=== PATIENT | male | born 1970 | race Caucasian/White ===

== ENCOUNTER 2016-04-28 21:33 | Inpatient (IN) | payer OTHER ==
[~2016-04-28] VITALS: Ht 175.3 cm; Wt 62.7 kg
[~2016-04-28 21:33] MED LIST: ALBUTEROL SULF8.5 GM IH; ANALGESIC325 M1 PO; ASPIR-LOW81 MG PO; ASPIR-TRIN325 M1 PO; ASPIRIN EC325 MG PO; ASPIRIN325 MG PO; ATORVASTATIN CA40 MG PO; ATORVASTATIN CA80 MG PO; AUGMENTIN; BACTRIM,SEPT1 TABLET PO; CEFTIN250 MG PO; CIPRO500 MG PO; CLEOCIN300 MG PO; DESYREL 150 MG150 MG PO; DIAZEPAM10 MG PO; DIAZEPAM5 MG PO; EFFEXOR XR150 MG PO; EFFEXOR XR37.5 MG PO; EFFEXOR XR75 MG PO; EFFEXOR37.5 MG PO; EFFEXOR75 MG PO; Ecotrin PO; GLUCAGON1 MG IM; HUMALOG100 UNIT/1 SQ; HUMALOG100 UNITS/ PO; IMDUR30 MG PO; Imdur PO; LANTUS 10100 UNITS/ SC; LANTUS 3 M100 UNITS/ PO; LANTUS 3 M100 UNITS/ SC; LANTUS 3 M100 UNITS1 SC; LANTUS100 UNIT/1 SQ; LEVEMIR100 UNIT/2 SC; LEXAPRO10 MG PO; LIPITOR20 MG PO; LIPITOR40 MG PO; LIPITOR80 MG PO; LISINOPRIL5 MG PO; LITE COAT ASPI325 M1 PO; LYRICA100 MG PO; LYRICA150 MG PO; LYRICA75 MG PO; METOPROLOL PO; METOPROLOL SUCC25 MG PO; MIRALAX17 GM PO; NITRO-DUR1 EAC1 TD; NITROGLYCERIN0.4 MG SL; NITROSTAT,NITR0.4 M1 SL; NITROSTAT0.4 MG PO; NITROSTAT0.4 MG SL; NON-ASPIRIN EX500 M2 PO; NOVOLOG 10100 UNITS/ SC; NOVOLOG PE100 UNITS/ SC; NOVOLOG100 UNIT/3 SQ; NovoLOG, HumaLOG SC; OLANZAPINE10 MG PO; OMEPRAZOLE40 M1 PO; OXCARBAZEPINE300 MG PO; OXCARBAZEPINE600 MG PO; PAROXETINE HCL40 MG PO; PAXIL CR25 MG PO; PAXIL10 MG PO; PAXIL40 MG PO; PLAVIX75 MG PO; PRILOSEC20 MG PO; PRILOSEC40 MG PO; PRINIVIL5 MG PO; SIMVASTATIN80 M1 PO; TOPROL XL25 MG PO; TOPROL XL6.25 MG PO; TRAZODONE HCL150 MG PO; TRAZODONE HCL50 MG PO; TRILEPTAL300 MG PO; TRILEPTAL600 MG PO; TYLENOL EXTRA500 MG PO; TYLENOL WITH C1 EACH PO; Trileptal PO; VALIUM10 MG PO; VENLAFAXINE HC150 M1 PO; VENLAFAXINE HCL75 M3 PO; VENTOLIN HFA18 GM IH; ZESTRIL5 MG PO; ZOCOR80 MG PO; ZYPREXA10 MG PO; Zestril,Prinivil PO; Zocor PO; ZyPREXA PO; Zyvox PO; humalog; lantus
[2016-04-28 23:25] LABS: EOSINOPHIL (%) 0.2 % (0-5); HEMATOCRIT 39.8 % (38.0-50.0); IMMATURE GRANULOCYTE (%) 0.2 % (0.0-0.7); IMMATURE GRANULOCYTE COUNT 0.1 K/uL; LYMPHOCYTE COUNT 2.3 K/uL (1.0-2.8); MCH 30.3 PG (29.0-34.0); MCHC 34.7 G/DL (30.0-36.0); MCV 87.5 FL (86-99); MONOCYTE (%) 7.3 % (3-12); MONOCYTE COUNT 0.4 K/uL (0-0.8); NEUTROPHIL (%) 50.3 % (45-76); NEUTROPHIL COUNT 2.8 K/uL (1.8-6.4); PLATELET COUNT 456 K/uL (156-360); RBC DIS.WIDTH-CV 13.1 % (11.8-14.6); RED BLOOD COUNT 4.55 M/uL (4.00-5.50); WHITE BLOOD COUNT 5.6 K/uL (4.1-10.2)
[2016-04-28 23:32] LABS: CHLORIDE 101 mEq/L (99-109); POTASSIUM 4.4 mEq/L (3.7-5.4); SODIUM 135 mEq/L (136-147)
[2016-04-28 23:34] LABS: GLUCOSE 393 mg/dL (70-99)
[2016-04-28 23:35] LABS: ANION GAP 23 MEQ/L (2-14)
[2016-04-28 23:37] LABS: SERUM ETHYL ALCOHOL < 10 mg/dL
[2016-04-28 23:38] LABS: GFR ESTIMATE (CALCULATED) 59 mL/min/; UREA NITROGEN (BUN) 14 mg/dL (9-23)
[2016-04-29 00:24] LABS: BASE EXCESS -6.7 mEq/L (-3 to +3); BICARBONATE 17.3 mEq/L (22-26); CARBOXY HGB 1.4 % (0-5); COMMENTS - BLOOD GASES C+A+; FI02 21 %; METHEMOGLOBIN 0.9 % (0-1.5); PCO2 30 mm Hg (35-45); PO2 86 mm Hg (80-100); SITE LR; pH 7.37 (7.35-7.45)
[2016-04-29 01:12] LABS: CHLORIDE 103 mEq/L (99-109); SODIUM 134 mEq/L (136-147)
[2016-04-29 01:13] LABS: GLUCOSE 320 mg/dL (70-99)
[2016-04-29 01:15] LABS: ANION GAP 15 MEQ/L (2-14)
[2016-04-29 01:17] LABS: GFR ESTIMATE (CALCULATED) > 59 mL/min/
[2016-04-29 01:18] LABS: UREA NITROGEN (BUN) 12 mg/dL (9-23)
[2016-04-29 02:01] LABS: ADD MIUA? NO; BILIRUBIN NEGATIVE; BLOOD NEGATIVE; COLOR STRAW ((YELLOW)); GLUCOSE (STRIP) >=500; KETONES 80; LEUKOCYTES NEGATIVE; NITRITE NEGATIVE; PROTEIN (STRIP) NEGATIVE; SPECIFIC GRAVITY 1.029 (1.000-1.030); UROBILINOGEN 0.2 MG/DL (0.2-1.0)
[2016-04-29 02:10] LABS: ADD MEDTOX COMMENT Y; AMPHETAMINE NEGATIVE (500 ng/mL); BARBITURATES NEGATIVE (200 ng/mL); BENZODIAZEPINES PRESUMPTIVE POSITIVE (150 ng/mL); COCAINE NEGATIVE (150 ng/mL); INTERNAL CONTROLS VALID? YES; METHADONE NEGATIVE (200 ng/mL); METHAMPHETAMINE NEGATIVE (500 ng/mL); OPIATES (MORPHINE) NEGATIVE (100 ng/mL); OXYCODONE NEGATIVE (100 ng/mL); PHENCYCLIDINE NEGATIVE (25 ng/mL); PROPOXYPHENE NEGATIVE (300 ng/mL); THC CANNABINOIDS NEGATIVE (50 ng/mL); TRICYCLIC ANTIDEPRESSANTS NEGATIVE (300 ng/mL)
[2016-04-29 02:39] LABS: BENZODIAZEPINES, URINE SCREEN POSITIVE (200 ng/mL)
[2016-04-29 03:36] LABS: POINT-OF-CARE METER ID UU14100415
[2016-04-29 04:03] LABS: CHLORIDE 110 mEq/L (99-109); POTASSIUM 3.5 mEq/L (3.7-5.4); SODIUM 139 mEq/L (136-147)
[2016-04-29 04:06] LABS: ANION GAP 9 MEQ/L (2-14)
[2016-04-29 04:08] LABS: GFR ESTIMATE (CALCULATED) > 59 mL/min/
[2016-04-29 04:09] LABS: UREA NITROGEN (BUN) 10 mg/dL (9-23)
[2016-04-29 04:21] LABS: GLUCOSE 93 mg/dL (70-99)
[2016-04-29 05:53] VITALS: BP 119/66
[2016-04-29 07:48] LABS: Estimated Average Glucose 226 mg/dL (70-123); HEMOGLOBIN A1c (GLYCOHEMOGLOB) 9.5 % HGB (Below 5.7)
== END 2016-04-29 05:20 | disposition home or self-care (01) | DRG 638 ==
LOC: EME 21:33 → EDOF 04-29 03:08
PROVIDERS: Emergency Medicine; Surgery
DX: E13.10 Other specified diabetes mellitus with ketoacidosis without coma (principal); R45.851 Suicidal ideations; F31.9 Bipolar disorder, unspecified; J45.909 Unspecified asthma, uncomplicated; E78.5 Hyperlipidemia, unspecified; I10 Essential (primary) hypertension; F41.9 Anxiety disorder, unspecified; I25.10 Atherosclerotic heart disease of native coronary artery without angina pectoris; Z91.5 Personal history of self-harm; Z91.14 Patient's other noncompliance with medication regimen; Z95.5 Presence of coronary angioplasty implant and graft; Z79.4 Long term (current) use of insulin
CPT/HCPCS: 36600; 80048; 80048 91; 81003; 82010; 82803; 82948; 83036; 84100; 84999; 85025; 90839; 99281; 99285; G0480; J1815; J7030; J7050

== ENCOUNTER 2016-05-09 13:05 | Inpatient (IN) | payer OTHER ==
[2016-05-09] VITALS (17 sets, daily range): BP systolic 89–121; BP diastolic 47–64
[~2016-05-09] VITALS: Ht 172.7 cm; Wt 57.6 kg
[2016-05-09 13:15] LABS: CARBOXY HGB 1.3 % (0-5); COMMENTS - BLOOD GASES A+C+; DEVICE NC; METHEMOGLOBIN 1.4 % (0-1.5); O2 FLOW 4 L/MIN; PCO2 < 19 mm Hg (35-45); PO2 159 mm Hg (80-100); SITE LRA; TOTAL RESP RATE 14 resp/min; pH 6.92 (7.35-7.45)
[2016-05-09 14:00] LABS: CARBOXY HGB 1.4 % (0-5); METHEMOGLOBIN 1.3 % (0-1.5); PCO2 22 mm Hg (35-45)
[2016-05-09 14:01] LABS: COMMENTS - BLOOD GASES A+C+; DEVICE 980; FI02 50 %; MECHANICAL RATE 30 resp/min; MODE SIMV; PEEP 5 CM/H20; PO2 285 mm Hg (80-100); PRES. SUPPORT 5 CM/H2O; SITE LRA; TIDAL VOLUME 400 ML; TOTAL RESP RATE 30 resp/min; pH < 6.91 (7.35-7.45)
[2016-05-09 14:21] LABS: CHLORIDE 100 mEq/L (99-109); SODIUM 138 mEq/L (136-147)
[2016-05-09 14:24] LABS: ANION GAP 35 MEQ/L (2-14)
[2016-05-09 14:25] LABS: TOTAL BILIRUBIN 0.3 mg/dL (0.0-1.0)
[2016-05-09 14:27] LABS: ALKALINE PHOSPHATASE 164 IU/L (3-129); GFR ESTIMATE (CALCULATED) 25 mL/min/
[2016-05-09 14:37] LABS: CARBON DIOXIDE (BICARBONATE) < 5.0 mEq/L (20-31); GLUCOSE 1141 mg/dL (70-99); POTASSIUM 7.1 mEq/L (3.7-5.4)
[2016-05-09 14:52] LABS: SERUM ETHYL ALCOHOL < 10 mg/dL
[2016-05-09 14:53] LABS: UREA NITROGEN (BUN) 22 mg/dL (9-23)
[2016-05-09 14:55] LABS: SALICYLATE < 5.0 MG/DL (15-30)
[2016-05-09 14:57] LABS: MCH 30.2 PG (29.0-34.0); MCHC 32.7 G/DL (30.0-36.0); MEAN PLAT.VOLUME 9.8 uM^3 (9.0-12.4); PLATELET COUNT 347 K/uL (156-360); RBC DIS.WIDTH-SD 43.4 % (39-53); RED BLOOD COUNT 4.01 M/uL (4.00-5.50)
[2016-05-09 15:09] LABS: ADD MIUA? YES; BILIRUBIN NEGATIVE; BLOOD SMALL; COLOR STRAW ((YELLOW)); GLUCOSE (STRIP) >=500; KETONES 80; LEUKOCYTES NEGATIVE; NITRITE NEGATIVE; PROTEIN (STRIP) 30; SPECIFIC GRAVITY 1.023 (1.000-1.030); UROBILINOGEN 0.2 MG/DL (0.2-1.0)
[2016-05-09 15:20] LABS: BACTERIA 1+ /HPF; COCAINE NEGATIVE (150 ng/mL); EPITHELIAL CELLS NONE SEEN /HPF; HYALINE CASTS 0-5 /LPF; MUCUS TRACE /LPF; PHENCYCLIDINE NEGATIVE (25 ng/mL); RED BLOOD CELLS 0-5 /HPF (0-5); THC CANNABINOIDS NEGATIVE (50 ng/mL); WHITE BLOOD CELLS 0-5 /HPF (0-5)
[2016-05-09 15:21] LABS: ADD MEDTOX COMMENT Y; AMPHETAMINE NEGATIVE (500 ng/mL); BARBITURATES NEGATIVE (200 ng/mL); BENZODIAZEPINES PRESUMPTIVE POSITIVE (150 ng/mL); INTERNAL CONTROLS VALID? YES; METHADONE NEGATIVE (200 ng/mL); METHAMPHETAMINE NEGATIVE (500 ng/mL); OPIATES (MORPHINE) NEGATIVE (100 ng/mL); OXYCODONE NEGATIVE (100 ng/mL); PROPOXYPHENE NEGATIVE (300 ng/mL); TRICYCLIC ANTIDEPRESSANTS NEGATIVE (300 ng/mL)
[2016-05-09] MEDS ORDERED: OMEPRAZOLE40 M1 PO (15:26)
[2016-05-09] MEDS ORDERED: CYMBALTA30 MG PO (15:27)
[2016-05-09] MEDS ORDERED: LANTUS 10100 UNITS/ SC (15:29)
[2016-05-09] MEDS ORDERED: NOVOLOG 10100 UNITS/ SC (15:33)
[2016-05-09 15:46] LABS: BASOPHIL COUNT 0.1 K/uL (0-0.1); EOSINOPHIL (%) 0.3 % (0-5); EOSINOPHIL COUNT 0.1 K/uL (0-0.3); HEMATOLOGY COMMENT 1 SMEAR COMPATIBLE; IMMATURE GRANULOCYTE (%) 1.1 % (0.0-0.7); IMMATURE GRANULOCYTE COUNT 2.5 K/uL; LYMPHOCYTE COUNT 1.7 K/uL (1.0-2.8); MONOCYTE (%) 5.4 % (3-12); MONOCYTE COUNT 1.2 K/uL (0-0.8); NEUTROPHIL (%) 85.2 % (45-76); NEUTROPHIL COUNT 18.8 K/uL (1.8-6.4)
[2016-05-09 15:58] LABS: MCV 92.3 FL (86-99)
[2016-05-09 16:05] LABS: BENZODIAZEPINES, URINE SCREEN POSITIVE (200 ng/mL)
[2016-05-09 16:27] LABS: POTASSIUM 4.7 mEq/L (3.7-5.4)
[2016-05-09 16:30] LABS: ANION GAP 27 MEQ/L (2-14)
[2016-05-09 16:33] LABS: GFR ESTIMATE (CALCULATED) 29 mL/min/; UREA NITROGEN (BUN) 23 mg/dL (9-23)
[2016-05-09 16:39] LABS: GLUCOSE 759 mg/dL (70-99); SODIUM 145 mEq/L (136-147)
[2016-05-09 16:40] LABS: CHLORIDE 111 mEq/L (99-109)
[2016-05-09 17:22] LABS: BASE EXCESS -19.2 mEq/L (-3 to +3); BICARBONATE 8.2 mEq/L (22-26); CARBOXY HGB 1.2 % (0-5); COMMENTS - BLOOD GASES A+C+; DEVICE 980; FI02 50 %; MECHANICAL RATE 30 resp/min; METHEMOGLOBIN 1.3 % (0-1.5); MODE SIMV; PCO2 24 mm Hg (35-45); PEEP 5 CM/H20; PO2 277 mm Hg (80-100); PRES. SUPPORT 5 CM/H2O; SITE LRA; TIDAL VOLUME 400 ML; TOTAL RESP RATE 30 resp/min; pH 7.14 (7.35-7.45)
[2016-05-09 18:15] LABS: Estimated Average Glucose 220 mg/dL (70-123); HEMOGLOBIN A1c (GLYCOHEMOGLOB) 9.3 % HGB (Below 5.7)
[2016-05-09 19:42] LABS: POINT-OF-CARE METER ID UU13113803
[2016-05-09 19:56] LABS: METH RESISTANT S AUREUS PCR NEGATIVE (NEGATIVE)
[2016-05-09 20:09] LABS: PROBE CHECK PASS; SPECIMEN PROCESSING CONTROL PASS
[2016-05-09 20:14] LABS: POINT-OF-CARE METER ID UU13113803
[2016-05-09 20:21] LABS: BASE EXCESS -6.7 mEq/L (-3 to +3); BICARBONATE 16.7 mEq/L (22-26); CARBOXY HGB 1.1 % (0-5); COMMENTS - BLOOD GASES C+A+; DEVICE 840 VENT; FI02 35 %; METHEMOGLOBIN 1.9 % (0-1.5); MODE SPONT; PCO2 27 mm Hg (35-45); PO2 180 mm Hg (80-100); SITE RR
[2016-05-09 20:22] LABS: PEEP 5 CM/H20; PRES. SUPPORT 12 CM/H2O; TOTAL RESP RATE 14 resp/min
[2016-05-09 20:35] LABS: POINT-OF-CARE METER ID UU13113803
[2016-05-09 20:59] LABS: ANION GAP 25 MEQ/L (2-14); CHLORIDE 113 MEQ/L (99-109); GFR ESTIMATE (CALCULATED) 47 mL/min/; GLUCOSE 293 mg/dL (70-99); POTASSIUM 3.7 MEQ/L (3.7-5.4); SAMPLE HEMOLYSIS CHECK 0; SAMPLE ICTERIC CHECK 0; SAMPLE LIPEMIA CHECK 0; SODIUM 152 MEQ/L (136-147); UREA NITROGEN (BUN) 19 mg/dL (9-23)
[2016-05-09 21:43] LABS: POINT-OF-CARE METER ID UU13113803
[2016-05-09 22:34] LABS: POINT-OF-CARE METER ID UU13113803
[2016-05-09 23:44] LABS: POINT-OF-CARE METER ID UU13113803
[2016-05-10] VITALS (19 sets, daily range): BP systolic 94–128; BP diastolic 59–83
[2016-05-10 00:41] LABS: CHLORIDE 120 mEq/L (99-109); POTASSIUM 3.4 mEq/L (3.7-5.4); SODIUM 156 mEq/L (136-147)
[2016-05-10 00:43] LABS: GLUCOSE 165 mg/dL (70-99)
[2016-05-10 00:44] LABS: ANION GAP 14 MEQ/L (2-14)
[2016-05-10 00:47] LABS: GFR ESTIMATE (CALCULATED) 47 mL/min/; UREA NITROGEN (BUN) 17 mg/dL (9-23)
[2016-05-10 00:47] LABS: POINT-OF-CARE METER ID UU13113803
[2016-05-10 01:33] LABS: POINT-OF-CARE METER ID UU13113748
[2016-05-10 03:50] LABS: POINT-OF-CARE METER ID UU13113748
[2016-05-10 04:45] LABS: EOSINOPHIL (%) 0 % (0-5); HEMATOCRIT 34.4 % (38.0-50.0); IMMATURE GRANULOCYTE (%) 0.3 % (0.0-0.7); IMMATURE GRANULOCYTE COUNT 0.3 K/uL; LYMPHOCYTE COUNT 1.4 K/uL (1.0-2.8); MCH 30.6 PG (29.0-34.0); MCHC 34.9 G/DL (30.0-36.0); MCV 87.8 FL (86-99); MEAN PLAT.VOLUME 9.4 uM^3 (9.0-12.4); MONOCYTE (%) 7.2 % (3-12); MONOCYTE COUNT 0.7 K/uL (0-0.8); NEUTROPHIL (%) 78.7 % (45-76); PLATELET COUNT 265 K/uL (156-360); RBC DIS.WIDTH-CV 13.1 % (11.8-14.6); RED BLOOD COUNT 3.92 M/uL (4.00-5.50); WHITE BLOOD COUNT 10.2 K/uL (4.1-10.2)
[2016-05-10 04:55] LABS: CHLORIDE 119 mEq/L (99-109); MAGNESIUM 1.7 mg/dL (1.3-2.7); POTASSIUM 3.6 mEq/L (3.7-5.4); SODIUM 155 mEq/L (136-147)
[2016-05-10 04:57] LABS: GLUCOSE 154 mg/dL (70-99)
[2016-05-10 04:58] LABS: ANION GAP 11 MEQ/L (2-14)
[2016-05-10 05:01] LABS: GFR ESTIMATE (CALCULATED) 50 mL/min/; UREA NITROGEN (BUN) 15 mg/dL (9-23)
[2016-05-10 05:38] LABS: POINT-OF-CARE METER ID UU13113748
[2016-05-10 09:11] LABS: ANION GAP 18 MEQ/L (2-14); CHLORIDE 114 MEQ/L (99-109); POTASSIUM 3.9 MEQ/L (3.7-5.4); SAMPLE HEMOLYSIS CHECK 0; SAMPLE ICTERIC CHECK 0; SAMPLE LIPEMIA CHECK 0; SODIUM 154 MEQ/L (136-147)
[2016-05-10 09:16] LABS: GFR ESTIMATE (CALCULATED) > 59 mL/min/; UREA NITROGEN (BUN) 12 mg/dL (9-23)
[2016-05-10 09:19] LABS: GLUCOSE 375 mg/dL (70-99)
[2016-05-10 09:24] LABS: POINT-OF-CARE METER ID UU14100415
[2016-05-10 09:24] LABS: POINT-OF-CARE METER ID UU13113803
[2016-05-10 09:24] LABS: POINT-OF-CARE METER ID UU14100415
[2016-05-10 10:08] LABS: BASE EXCESS -7.8 mEq/L (-3 to +3); BICARBONATE 16.2 mEq/L (22-26); CARBOXY HGB 1.1 % (0-5); COMMENTS - BLOOD GASES A+C+; DEVICE 840; FI02 35 %; METHEMOGLOBIN 1.6 % (0-1.5); MODE TC; PCO2 28 mm Hg (35-45); PO2 171 mm Hg (80-100); SITE LR; TOTAL RESP RATE 20 resp/min; pH 7.37 (7.35-7.45)
[2016-05-10 10:09] LABS: PEEP 5 CM/H20
[2016-05-10 10:44] LABS: POINT-OF-CARE METER ID UU13113748
[2016-05-10 11:38] LABS: POINT-OF-CARE METER ID UU13113748
[2016-05-10 12:10] LABS: POINT-OF-CARE METER ID UU13113748
[2016-05-10 12:37] LABS: ANION GAP 22 MEQ/L (2-14); CHLORIDE 115 MEQ/L (99-109); GFR ESTIMATE (CALCULATED) > 59 mL/min/; GLUCOSE 263 mg/dL (70-99); SAMPLE HEMOLYSIS CHECK 0; SAMPLE ICTERIC CHECK 0; SAMPLE LIPEMIA CHECK 0; SODIUM 154 MEQ/L (136-147); UREA NITROGEN (BUN) 11 mg/dL (9-23)
[2016-05-10 12:48] LABS: POINT-OF-CARE METER ID UU14162636
[2016-05-10 13:03] LABS: POTASSIUM 3.1 MEQ/L (3.7-5.4)
[2016-05-10 13:54] LABS: POINT-OF-CARE METER ID UU13113748
[2016-05-10 14:20] LABS: POINT-OF-CARE METER ID UU13113748
[2016-05-10 15:09] LABS: POINT-OF-CARE METER ID UU13113748
[2016-05-10 15:58] LABS: POINT-OF-CARE METER ID UU13113748
[2016-05-10 16:30] LABS: ANION GAP 17 MEQ/L (2-14); CHLORIDE 117 MEQ/L (99-109); POTASSIUM 3.5 MEQ/L (3.7-5.4); SAMPLE HEMOLYSIS CHECK 0; SAMPLE ICTERIC CHECK 0; SAMPLE LIPEMIA CHECK 0; SODIUM 156 MEQ/L (136-147)
[2016-05-10 16:35] LABS: GFR ESTIMATE (CALCULATED) > 59 mL/min/; GLUCOSE 164 mg/dL (70-99); UREA NITROGEN (BUN) 9 mg/dL (9-23)
[2016-05-10 17:00] LABS: POINT-OF-CARE METER ID UU13113748
[2016-05-10 18:00] LABS: POINT-OF-CARE METER ID UU13113748
[2016-05-10 19:01] LABS: POINT-OF-CARE METER ID UU13113748
[2016-05-10 19:32] LABS: ANION GAP 14 MEQ/L (2-14); CHLORIDE 116 MEQ/L (99-109); GFR ESTIMATE (CALCULATED) > 59 mL/min/; GLUCOSE 185 mg/dL (70-99); POTASSIUM 3.6 MEQ/L (3.7-5.4); SAMPLE HEMOLYSIS CHECK 0; SAMPLE ICTERIC CHECK 0; SAMPLE LIPEMIA CHECK 0; SODIUM 154 MEQ/L (136-147); UREA NITROGEN (BUN) 7 mg/dL (9-23)
[2016-05-10 19:42] LABS: MAGNESIUM 2.4 mg/dl (1.3-2.7)
[2016-05-10 20:04] LABS: POINT-OF-CARE METER ID UU13113748
[2016-05-10 21:15] LABS: POINT-OF-CARE METER ID UU13113748
[2016-05-10 22:06] LABS: POINT-OF-CARE METER ID UU13113748
[2016-05-10 23:22] LABS: POINT-OF-CARE METER ID UU13113748
[2016-05-11] VITALS (22 sets, daily range): BP systolic 102–126; BP diastolic 61–71
[2016-05-11 00:52] LABS: CHLORIDE 116 mEq/L (99-109); SODIUM 154 mEq/L (136-147)
[2016-05-11 00:53] LABS: GLUCOSE 173 mg/dL (70-99)
[2016-05-11 00:55] LABS: ANION GAP 12 MEQ/L (2-14)
[2016-05-11 00:57] LABS: GFR ESTIMATE (CALCULATED) > 59 mL/min/
[2016-05-11 00:58] LABS: UREA NITROGEN (BUN) 5 mg/dL (9-23)
[2016-05-11 01:07] LABS: POINT-OF-CARE METER ID UU13113748
[2016-05-11 03:07] LABS: POINT-OF-CARE METER ID UU13113731
[2016-05-11 04:04] LABS: EOSINOPHIL (%) 0.2 % (0-5); HEMATOCRIT 31.2 % (38.0-50.0); IMMATURE GRANULOCYTE (%) 0.1 % (0.0-0.7); IMMATURE GRANULOCYTE COUNT 0.1 K/uL; LYMPHOCYTE COUNT 2.2 K/uL (1.0-2.8); MCH 30.1 PG (29.0-34.0); MCHC 33.7 G/DL (30.0-36.0); MCV 89.4 FL (86-99); MEAN PLAT.VOLUME 9.4 uM^3 (9.0-12.4); MONOCYTE (%) 5.9 % (3-12); MONOCYTE COUNT 0.5 K/uL (0-0.8); NEUTROPHIL (%) 66.8 % (45-76); NEUTROPHIL COUNT 5.6 K/uL (1.8-6.4); PLATELET COUNT 189 K/uL (156-360); RBC DIS.WIDTH-CV 13.7 % (11.8-14.6); RBC DIS.WIDTH-SD 43.9 % (39-53); RED BLOOD COUNT 3.49 M/uL (4.00-5.50); WHITE BLOOD COUNT 8.3 K/uL (4.1-10.2)
[2016-05-11 04:12] LABS: CHLORIDE 118 mEq/L (99-109); SODIUM 154 mEq/L (136-147)
[2016-05-11 04:12] LABS: POINT-OF-CARE METER ID UU13113731
[2016-05-11 04:13] LABS: MAGNESIUM 1.9 mg/dL (1.3-2.7)
[2016-05-11 04:14] LABS: GLUCOSE 162 mg/dL (70-99)
[2016-05-11 04:15] LABS: ANION GAP 9 MEQ/L (2-14)
[2016-05-11 04:18] LABS: GFR ESTIMATE (CALCULATED) > 59 mL/min/
[2016-05-11 04:19] LABS: UREA NITROGEN (BUN) 4 mg/dL (9-23)
[2016-05-11 05:12] LABS: POINT-OF-CARE METER ID UU13113731
[2016-05-11 06:20] LABS: POINT-OF-CARE METER ID UU13113731
[2016-05-11 07:14] LABS: POINT-OF-CARE METER ID UU13113731
[2016-05-11 09:16] LABS: POINT-OF-CARE METER ID UU13113731
[2016-05-11 09:32] LABS: ANION GAP 9 MEQ/L (2-14); CHLORIDE 116 MEQ/L (99-109); GFR ESTIMATE (CALCULATED) > 59 mL/min/; GLUCOSE 206 mg/dL (70-99); POTASSIUM 3.2 MEQ/L (3.7-5.4); SAMPLE HEMOLYSIS CHECK 0; SAMPLE ICTERIC CHECK 0; SAMPLE LIPEMIA CHECK 0; SODIUM 152 MEQ/L (136-147); UREA NITROGEN (BUN) 3 mg/dL (9-23)
[2016-05-11 11:06] LABS: POINT-OF-CARE METER ID UU13113731
[2016-05-11 14:31] LABS: POINT-OF-CARE METER ID UU13113731
[2016-05-11 19:27] LABS: POINT-OF-CARE METER ID UU13113731
[2016-05-11 21:49] LABS: POINT-OF-CARE METER ID UU13113731
[2016-05-11 22:52] LABS: ANION GAP 9 MEQ/L (2-14); CHLORIDE 118 MEQ/L (99-109); GFR ESTIMATE (CALCULATED) > 59 mL/min/; POTASSIUM 3.5 MEQ/L (3.7-5.4); SAMPLE HEMOLYSIS CHECK 0; SAMPLE ICTERIC CHECK 0; SAMPLE LIPEMIA CHECK 0; SODIUM 152 MEQ/L (136-147); UREA NITROGEN (BUN) 4 mg/dL (9-23)
[2016-05-11 22:53] LABS: GLUCOSE 115 mg/dL (70-99)
[2016-05-12] VITALS (18 sets, daily range): BP systolic 101–140; BP diastolic 56–85
[2016-05-12 03:14] LABS: POINT-OF-CARE METER ID UU13113731
[2016-05-12 04:23] LABS: POINT-OF-CARE METER ID UU13113731
[2016-05-12 05:32] LABS: POINT-OF-CARE METER ID UU13113731
[2016-05-12 05:37] LABS: EOSINOPHIL (%) 0.9 % (0-5); EOSINOPHIL COUNT 0.1 K/uL (0-0.3); HEMATOCRIT 35.3 % (38.0-50.0); LYMPHOCYTE COUNT 2.2 K/uL (1.0-2.8); MCH 29.2 PG (29.0-34.0); MCHC 31.7 G/DL (30.0-36.0); MCV 91.9 FL (86-99); MEAN PLAT.VOLUME 9.9 uM^3 (9.0-12.4); MONOCYTE (%) 6.5 % (3-12); MONOCYTE COUNT 0.4 K/uL (0-0.8); NEUTROPHIL (%) 53.7 % (45-76); NEUTROPHIL COUNT 3.1 K/uL (1.8-6.4); PLATELET COUNT 150 K/uL (156-360); RBC DIS.WIDTH-CV 13.7 % (11.8-14.6); RBC DIS.WIDTH-SD 46.5 % (39-53); RED BLOOD COUNT 3.84 M/uL (4.00-5.50)
[2016-05-12 05:46] LABS: WHITE BLOOD COUNT 5.8 K/uL (4.1-10.2)
[2016-05-12 06:31] LABS: POINT-OF-CARE METER ID UU13113731
[2016-05-12 06:34] LABS: ANION GAP 7 MEQ/L (2-14); CHLORIDE 114 MEQ/L (99-109); GFR ESTIMATE (CALCULATED) > 59 mL/min/; GLUCOSE 103 mg/dL (70-99); MAGNESIUM 2.3 mg/dl (1.3-2.7); POTASSIUM 3.8 MEQ/L (3.7-5.4); SAMPLE HEMOLYSIS CHECK 0; SAMPLE ICTERIC CHECK 0; SAMPLE LIPEMIA CHECK 0; SODIUM 148 MEQ/L (136-147); UREA NITROGEN (BUN) 3 mg/dL (9-23)
[2016-05-12 08:23] LABS: POINT-OF-CARE METER ID UU13113731
[2016-05-12 09:48] LABS: POINT-OF-CARE METER ID UU13113731
[2016-05-12 10:18] LABS: ANION GAP 8 MEQ/L (2-14); CHLORIDE 112 MEQ/L (99-109); GFR ESTIMATE (CALCULATED) > 59 mL/min/; GLUCOSE 111 mg/dL (70-99); POTASSIUM 3.6 MEQ/L (3.7-5.4); SAMPLE HEMOLYSIS CHECK 0; SAMPLE ICTERIC CHECK 0; SAMPLE LIPEMIA CHECK 0; SODIUM 147 MEQ/L (136-147); UREA NITROGEN (BUN) 3 mg/dL (9-23)
[2016-05-12 10:24] LABS: POINT-OF-CARE METER ID UU13113731
[2016-05-12 11:58] LABS: POINT-OF-CARE METER ID UU13113731
[2016-05-12 13:57] LABS: MAGNESIUM 2.1 mg/dl (1.3-2.7)
[2016-05-12 17:46] LABS: POINT-OF-CARE METER ID UU13113731
[2016-05-12 20:27] LABS: POINT-OF-CARE METER ID UU13113731
[2016-05-12 21:51] LABS: POINT-OF-CARE METER ID UU14174216
[2016-05-13] VITALS (16 sets, daily range): BP systolic 100–142; BP diastolic 43–83
[2016-05-13 01:18] LABS: POINT-OF-CARE METER ID UU13113781
[2016-05-13 05:37] LABS: POINT-OF-CARE METER ID UU13113698
[2016-05-13 05:50] LABS: EOSINOPHIL (%) 0.2 % (0-5); IMMATURE GRANULOCYTE (%) 0.5 % (0.0-0.7); INSTRUMENT ABS NEUTROPHIL CT 5.7 K/uL; LYMPHOCYTE COUNT 0.7 K/uL (1.0-2.8); MCH 29.5 PG (29.0-34.0); MCHC 32.2 G/DL (30.0-36.0); MCV 91.8 FL (86-99); MEAN PLAT.VOLUME 10.2 uM^3 (9.0-12.4); MONOCYTE (%) 2.9 % (3-12); MONOCYTE COUNT 0.2 K/uL (0-0.8); NEUTROPHIL (%) 85.4 % (45-76); NEUTROPHIL COUNT 5.7 K/uL (1.8-6.4); PLATELET COUNT 179 K/uL (156-360); RBC DIS.WIDTH-CV 12.7 % (11.8-14.6); RBC DIS.WIDTH-SD 42.5 % (39-53); RED BLOOD COUNT 4.03 M/uL (4.00-5.50); WHITE BLOOD COUNT 6.7 K/uL (4.1-10.2)
[2016-05-13 07:08] LABS: ANION GAP 22 MEQ/L (2-14); CHLORIDE 101 MEQ/L (99-109); GFR ESTIMATE (CALCULATED) > 59 mL/min/; SAMPLE HEMOLYSIS CHECK 1; SAMPLE ICTERIC CHECK 0; SAMPLE LIPEMIA CHECK 0; UREA NITROGEN (BUN) 10 mg/dL (9-23)
[2016-05-13 07:09] LABS: GLUCOSE 477 mg/dL (70-99); SODIUM 138 MEQ/L (136-147)
[2016-05-13 12:03] LABS: ANION GAP 32 MEQ/L (2-14); CHLORIDE 99 MEQ/L (99-109); GFR ESTIMATE (CALCULATED) > 59 mL/min/; SAMPLE HEMOLYSIS CHECK 1; SAMPLE ICTERIC CHECK 0; SAMPLE LIPEMIA CHECK 0; SODIUM 139 MEQ/L (136-147); UREA NITROGEN (BUN) 18 mg/dL (9-23)
[2016-05-13 12:04] LABS: GLUCOSE 600 mg/dL (70-99); POTASSIUM 5.9 MEQ/L (3.7-5.4)
[2016-05-13 12:06] LABS: Estimated Average Glucose 226 mg/dL (70-123); HEMOGLOBIN A1c (GLYCOHEMOGLOB) 9.5 % HGB (Below 5.7)
[2016-05-13 13:22] LABS: ANION GAP 36 MEQ/L (2-14); CHLORIDE 100 MEQ/L (99-109); GFR ESTIMATE (CALCULATED) > 59 mL/min/; SAMPLE HEMOLYSIS CHECK 0; SAMPLE ICTERIC CHECK 0; SAMPLE LIPEMIA CHECK 0; SODIUM 142 MEQ/L (136-147); UREA NITROGEN (BUN) 19 mg/dL (9-23)
[2016-05-13 13:35] LABS: GLUCOSE 594 mg/dL (70-99); POTASSIUM 6.3 MEQ/L (3.7-5.4)
[2016-05-13 14:46] LABS: POINT-OF-CARE METER ID UU13113731
[2016-05-13 15:09] LABS: POINT-OF-CARE METER ID UU13113731
[2016-05-13 16:04] LABS: POINT-OF-CARE METER ID UU13113731
[2016-05-13 16:21] LABS: POINT-OF-CARE METER ID UU13113731
[2016-05-13 16:33] LABS: ANION GAP 31 MEQ/L (2-14); CHLORIDE 109 MEQ/L (99-109); GFR ESTIMATE (CALCULATED) > 59 mL/min/; GLUCOSE 349 mg/dL (70-99); SAMPLE HEMOLYSIS CHECK 0; SAMPLE ICTERIC CHECK 0; SAMPLE LIPEMIA CHECK 0; SODIUM 147 MEQ/L (136-147); UREA NITROGEN (BUN) 22 mg/dL (9-23)
[2016-05-13 16:37] LABS: POTASSIUM 4.8 MEQ/L (3.7-5.4)
[2016-05-13 16:49] LABS: POINT-OF-CARE METER ID UU14174217
[2016-05-13 18:29] LABS: POINT-OF-CARE METER ID UU13113731; POINT-OF-CARE USER ID 606021424
[2016-05-13 19:07] LABS: POINT-OF-CARE METER ID UU14162636
[2016-05-13 20:19] LABS: POINT-OF-CARE METER ID UU14162636
[2016-05-13 20:52] LABS: ANION GAP 25 MEQ/L (2-14); CHLORIDE 112 MEQ/L (99-109); GFR ESTIMATE (CALCULATED) > 59 mL/min/; GLUCOSE 212 mg/dL (70-99); POTASSIUM 4.5 MEQ/L (3.7-5.4); SAMPLE HEMOLYSIS CHECK 0; SAMPLE ICTERIC CHECK 0; SAMPLE LIPEMIA CHECK 0; SODIUM 148 MEQ/L (136-147); UREA NITROGEN (BUN) 19 mg/dL (9-23)
[2016-05-13 21:11] LABS: POINT-OF-CARE METER ID UU14174217
[2016-05-13 22:22] LABS: POINT-OF-CARE METER ID UU14174217
[2016-05-13 23:20] LABS: POINT-OF-CARE METER ID UU14174217
[2016-05-14] VITALS (23 sets, daily range): BP systolic 119–149; BP diastolic 61–81
[2016-05-14 00:23] LABS: POINT-OF-CARE METER ID UU14174217
[2016-05-14 01:21] LABS: POINT-OF-CARE METER ID UU14174217; POINT-OF-CARE USER ID ENVSME70
[2016-05-14 01:48] LABS: CHLORIDE 116 mEq/L (99-109); POTASSIUM 3.8 mEq/L (3.7-5.4); SODIUM 147 mEq/L (136-147)
[2016-05-14 01:50] LABS: GLUCOSE 190 mg/dL (70-99)
[2016-05-14 01:51] LABS: ANION GAP 16 MEQ/L (2-14)
[2016-05-14 01:54] LABS: GFR ESTIMATE (CALCULATED) > 59 mL/min/; UREA NITROGEN (BUN) 17 mg/dL (9-23)
[2016-05-14 02:25] LABS: POINT-OF-CARE METER ID UU14174217
[2016-05-14 03:27] LABS: POINT-OF-CARE METER ID UU14174217
[2016-05-14 04:22] LABS: POINT-OF-CARE METER ID UU14174217
[2016-05-14 05:40] LABS: POINT-OF-CARE METER ID UU13113803
[2016-05-14 06:21] LABS: POINT-OF-CARE METER ID UU14162636
[2016-05-14 06:34] LABS: EOSINOPHIL (%) 0 % (0-5); HEMATOCRIT 33.3 % (38.0-50.0); IMMATURE GRANULOCYTE (%) 0.9 % (0.0-0.7); IMMATURE GRANULOCYTE COUNT 0.1 K/uL; INSTRUMENT ABS NEUTROPHIL CT 9.4 K/uL; LYMPHOCYTE COUNT 1.4 K/uL (1.0-2.8); MCHC 32.4 G/DL (30.0-36.0); MCV 92.5 FL (86-99); MEAN PLAT.VOLUME 9.4 uM^3 (9.0-12.4); MONOCYTE (%) 5.9 % (3-12); MONOCYTE COUNT 0.7 K/uL (0-0.8); NEUTROPHIL COUNT 9.4 K/uL (1.8-6.4); RBC DIS.WIDTH-CV 13.2 % (11.8-14.6); RBC DIS.WIDTH-SD 44.7 % (39-53)
[2016-05-14 06:38] LABS: PLATELET COUNT 244 K/uL (156-360); WHITE BLOOD COUNT 11.5 K/uL (4.1-10.2)
[2016-05-14 07:00] LABS: ANION GAP 13 MEQ/L (2-14); CHLORIDE 115 MEQ/L (99-109); GFR ESTIMATE (CALCULATED) > 59 mL/min/; GLUCOSE 148 mg/dL (70-99); MAGNESIUM 1.9 mg/dl (1.3-2.7); POTASSIUM 3.5 MEQ/L (3.7-5.4); SAMPLE HEMOLYSIS CHECK 0; SAMPLE ICTERIC CHECK 0; SAMPLE LIPEMIA CHECK 0; SODIUM 148 MEQ/L (136-147); UREA NITROGEN (BUN) 15 mg/dL (9-23)
[2016-05-14 07:33] LABS: POINT-OF-CARE METER ID UU13113803
[2016-05-14 08:52] LABS: POINT-OF-CARE METER ID UU14162636
[2016-05-14 08:54] LABS: POINT-OF-CARE METER ID UU13113803
[2016-05-14 09:44] LABS: POINT-OF-CARE METER ID UU14162636
[2016-05-14 11:42] LABS: POINT-OF-CARE METER ID UU14162636
[2016-05-14 12:14] LABS: ANION GAP 10 MEQ/L (2-14); CHLORIDE 113 MEQ/L (99-109); GFR ESTIMATE (CALCULATED) > 59 mL/min/; GLUCOSE 180 mg/dL (70-99); POTASSIUM 3.5 MEQ/L (3.7-5.4); SAMPLE HEMOLYSIS CHECK 0; SAMPLE ICTERIC CHECK 0; SAMPLE LIPEMIA CHECK 0; SODIUM 145 MEQ/L (136-147); UREA NITROGEN (BUN) 11 mg/dL (9-23)
[2016-05-14 13:45] LABS: POINT-OF-CARE METER ID UU14162636
[2016-05-14 15:41] LABS: POINT-OF-CARE METER ID UU14162636
[2016-05-14 18:30] LABS: POINT-OF-CARE METER ID UU13113803
[2016-05-14 21:44] LABS: POINT-OF-CARE METER ID UU13113803
[2016-05-15] VITALS (17 sets, daily range): BP systolic 110–168; BP diastolic 57–87
[2016-05-15 01:18] LABS: POINT-OF-CARE METER ID UU13113803
[2016-05-15 05:30] LABS: POINT-OF-CARE METER ID UU13113803
[2016-05-15 06:07] LABS: EOSINOPHIL (%) 0.1 % (0-5); HEMATOCRIT 32.1 % (38.0-50.0); IMMATURE GRANULOCYTE (%) 0.4 % (0.0-0.7); IMMATURE GRANULOCYTE COUNT 0.1 K/uL; INSTRUMENT ABS NEUTROPHIL CT 8.4 K/uL; LYMPHOCYTE COUNT 1.9 K/uL (1.0-2.8); MCH 29.6 PG (29.0-34.0); MCHC 31.8 G/DL (30.0-36.0); MEAN PLAT.VOLUME 9.9 uM^3 (9.0-12.4); MONOCYTE COUNT 0.9 K/uL (0-0.8); NEUTROPHIL (%) 74.8 % (45-76); NEUTROPHIL COUNT 8.4 K/uL (1.8-6.4); PLATELET COUNT 222 K/uL (156-360); RBC DIS.WIDTH-CV 12.8 % (11.8-14.6); RBC DIS.WIDTH-SD 43.1 % (39-53); RED BLOOD COUNT 3.45 M/uL (4.00-5.50); WHITE BLOOD COUNT 11.2 K/uL (4.1-10.2)
[2016-05-15 06:43] LABS: ANION GAP 18 MEQ/L (2-14); CHLORIDE 104 MEQ/L (99-109); GFR ESTIMATE (CALCULATED) > 59 mL/min/; POTASSIUM 4.1 MEQ/L (3.7-5.4); SAMPLE HEMOLYSIS CHECK 0; SAMPLE ICTERIC CHECK 0; SAMPLE LIPEMIA CHECK 0; SODIUM 138 MEQ/L (136-147); UREA NITROGEN (BUN) 11 mg/dL (9-23)
[2016-05-15 06:45] LABS: GLUCOSE 354 mg/dL (70-99)
[2016-05-15 09:49] LABS: POINT-OF-CARE METER ID UU13113731
[2016-05-15 10:50] LABS: ANION GAP 18 MEQ/L (2-14); CHLORIDE 104 MEQ/L (99-109); GFR ESTIMATE (CALCULATED) > 59 mL/min/; GLUCOSE 289 mg/dL (70-99); POTASSIUM 3.9 MEQ/L (3.7-5.4); SAMPLE HEMOLYSIS CHECK 0; SAMPLE ICTERIC CHECK 0; SAMPLE LIPEMIA CHECK 0; SODIUM 139 MEQ/L (136-147); UREA NITROGEN (BUN) 11 mg/dL (9-23)
[2016-05-15 14:36] LABS: POINT-OF-CARE METER ID UU13113731
[2016-05-15 18:34] LABS: ANION GAP 12 MEQ/L (2-14); CHLORIDE 107 MEQ/L (99-109); GFR ESTIMATE (CALCULATED) > 59 mL/min/; SAMPLE HEMOLYSIS CHECK 0; SAMPLE ICTERIC CHECK 0; SAMPLE LIPEMIA CHECK 0; SODIUM 141 MEQ/L (136-147); UREA NITROGEN (BUN) 10 mg/dL (9-23)
[2016-05-15 18:35] LABS: GLUCOSE 86 mg/dL (70-99)
[2016-05-15 23:09] LABS: POINT-OF-CARE METER ID UU14162636
[2016-05-15 23:12] LABS: CHLORIDE 108 mEq/L (99-109); POTASSIUM 3.3 mEq/L (3.7-5.4); SODIUM 141 mEq/L (136-147)
[2016-05-15 23:14] LABS: GLUCOSE 126 mg/dL (70-99)
[2016-05-15 23:15] LABS: ANION GAP 9 MEQ/L (2-14)
[2016-05-15 23:17] LABS: GFR ESTIMATE (CALCULATED) > 59 mL/min/
[2016-05-15 23:18] LABS: UREA NITROGEN (BUN) 9 mg/dL (9-23)
[2016-05-16] VITALS (23 sets, daily range): BP systolic 106–156; BP diastolic 64–99
[2016-05-16 02:45] LABS: GLUCOSE 101 mg/dL (70-99)
[2016-05-16 06:16] LABS: EOSINOPHIL COUNT 0.1 K/uL (0-0.3); HEMATOCRIT 41.8 % (38.0-50.0); IMMATURE GRANULOCYTE (%) 0.5 % (0.0-0.7); INSTRUMENT ABS NEUTROPHIL CT 4.9 K/uL; LYMPHOCYTE COUNT 2.9 K/uL (1.0-2.8); MCH 29.5 PG (29.0-34.0); MCHC 32.8 G/DL (30.0-36.0); MCV 90.1 FL (86-99); MEAN PLAT.VOLUME 9.5 uM^3 (9.0-12.4); MONOCYTE (%) 9.4 % (3-12); MONOCYTE COUNT 0.8 K/uL (0-0.8); NEUTROPHIL COUNT 4.9 K/uL (1.8-6.4); RBC DIS.WIDTH-CV 12.7 % (11.8-14.6); WHITE BLOOD COUNT 8.7 K/uL (4.1-10.2)
[2016-05-16 06:18] LABS: PLATELET COUNT 317 K/uL (156-360); RED BLOOD COUNT 4.64 M/uL (4.00-5.50)
[2016-05-16 06:27] LABS: ANION GAP 12 MEQ/L (2-14); CHLORIDE 104 MEQ/L (99-109); GFR ESTIMATE (CALCULATED) > 59 mL/min/; SAMPLE HEMOLYSIS CHECK 1; SAMPLE ICTERIC CHECK 0; SAMPLE LIPEMIA CHECK 0; SODIUM 141 MEQ/L (136-147); UREA NITROGEN (BUN) 7 mg/dL (9-23)
[2016-05-16 06:29] LABS: GLUCOSE 47 mg/dL (70-99); POTASSIUM 3.6 MEQ/L (3.7-5.4)
[2016-05-16 10:04] LABS: ANION GAP 11 MEQ/L (2-14); CHLORIDE 104 MEQ/L (99-109); GFR ESTIMATE (CALCULATED) > 59 mL/min/; POTASSIUM 3.5 MEQ/L (3.7-5.4); SAMPLE HEMOLYSIS CHECK 0; SAMPLE ICTERIC CHECK 0; SAMPLE LIPEMIA CHECK 0; SODIUM 140 MEQ/L (136-147); UREA NITROGEN (BUN) 5 mg/dL (9-23)
[2016-05-16 10:05] LABS: GLUCOSE 119 mg/dL (70-99)
[2016-05-16 22:14] LABS: POINT-OF-CARE METER ID UU13113803
[2016-05-16 23:55] LABS: POINT-OF-CARE METER ID UU13113803
[2016-05-17] VITALS (15 sets, daily range): BP systolic 105–149; BP diastolic 59–84
[2016-05-17 06:37] LABS: EOSINOPHIL (%) 1.3 % (0-5); EOSINOPHIL COUNT 0.1 K/uL (0-0.3); HEMATOCRIT 34.5 % (38.0-50.0); IMMATURE GRANULOCYTE (%) 0.5 % (0.0-0.7); INSTRUMENT ABS NEUTROPHIL CT 2.6 K/uL; LYMPHOCYTE COUNT 2.7 K/uL (1.0-2.8); MCH 29.7 PG (29.0-34.0); MCHC 33.6 G/DL (30.0-36.0); MCV 88.5 FL (86-99); MEAN PLAT.VOLUME 9.6 uM^3 (9.0-12.4); MONOCYTE (%) 13.1 % (3-12); MONOCYTE COUNT 0.8 K/uL (0-0.8); NEUTROPHIL (%) 41.8 % (45-76); NEUTROPHIL COUNT 2.6 K/uL (1.8-6.4); PLATELET COUNT 325 K/uL (156-360); RBC DIS.WIDTH-CV 12.5 % (11.8-14.6); RBC DIS.WIDTH-SD 39.6 % (39-53); WHITE BLOOD COUNT 6.3 K/uL (4.1-10.2)
[2016-05-17 06:47] LABS: ANION GAP 9 MEQ/L (2-14); CHLORIDE 103 MEQ/L (99-109); GFR ESTIMATE (CALCULATED) > 59 mL/min/; GLUCOSE 109 mg/dL (70-99); MAGNESIUM 1.7 mg/dl (1.3-2.7); POTASSIUM 3.1 MEQ/L (3.7-5.4); SAMPLE HEMOLYSIS CHECK 0; SAMPLE ICTERIC CHECK 0; SAMPLE LIPEMIA CHECK 0; SODIUM 138 MEQ/L (136-147); UREA NITROGEN (BUN) 4 mg/dL (9-23)
[2016-05-17 11:44] LABS: ANION GAP 10 MEQ/L (2-14); CHLORIDE 101 MEQ/L (99-109); GFR ESTIMATE (CALCULATED) > 59 mL/min/; GLUCOSE 133 mg/dL (70-99); POTASSIUM 3.5 MEQ/L (3.7-5.4); SAMPLE HEMOLYSIS CHECK 0; SAMPLE ICTERIC CHECK 0; SAMPLE LIPEMIA CHECK 0; SODIUM 137 MEQ/L (136-147); UREA NITROGEN (BUN) 4 mg/dL (9-23)
[2016-05-17 12:37] LABS: MAGNESIUM 1.7 mg/dl (1.3-2.7)
[2016-05-17 15:10] LABS: POINT-OF-CARE METER ID UU13113803
[2016-05-17 18:35] LABS: POINT-OF-CARE METER ID UU13113731
[2016-05-17 21:43] LABS: POINT-OF-CARE METER ID UU14174217
[2016-05-18] VITALS (10 sets, daily range): BP systolic 104–155; BP diastolic 58–84
[2016-05-18 00:19] LABS: POINT-OF-CARE METER ID UU14174217
[2016-05-18 02:25] LABS: POINT-OF-CARE METER ID UU14174217
[2016-05-18 02:52] LABS: POINT-OF-CARE METER ID UU14174217
[2016-05-18 03:04] LABS: POINT-OF-CARE METER ID UU14174217
[2016-05-18 05:24] LABS: POINT-OF-CARE METER ID UU14174217
[2016-05-18 06:16] LABS: EOSINOPHIL (%) 1.3 % (0-5); EOSINOPHIL COUNT 0.1 K/uL (0-0.3); IMMATURE GRANULOCYTE (%) 0.3 % (0.0-0.7); LYMPHOCYTE COUNT 2.4 K/uL (1.0-2.8); MCH 29.9 PG (29.0-34.0); MCHC 33.9 G/DL (30.0-36.0); MEAN PLAT.VOLUME 9.2 uM^3 (9.0-12.4); MONOCYTE COUNT 0.8 K/uL (0-0.8); NEUTROPHIL (%) 47.3 % (45-76); PLATELET COUNT 345 K/uL (156-360); RBC DIS.WIDTH-CV 12.5 % (11.8-14.6); RBC DIS.WIDTH-SD 39.4 % (39-53); RED BLOOD COUNT 3.75 M/uL (4.00-5.50); WHITE BLOOD COUNT 6.3 K/uL (4.1-10.2)
[2016-05-18 06:32] LABS: ANION GAP 7 MEQ/L (2-14); CHLORIDE 103 MEQ/L (99-109); GFR ESTIMATE (CALCULATED) > 59 mL/min/; GLUCOSE 193 mg/dL (70-99); MAGNESIUM 1.9 mg/dl (1.3-2.7); POTASSIUM 3.9 MEQ/L (3.7-5.4); SAMPLE HEMOLYSIS CHECK 0; SAMPLE ICTERIC CHECK 0; SAMPLE LIPEMIA CHECK 0; SODIUM 136 MEQ/L (136-147); UREA NITROGEN (BUN) 4 mg/dL (9-23)
[2016-05-18 09:06] LABS: POINT-OF-CARE METER ID UU14174217
[2016-05-18 10:51] LABS: POINT-OF-CARE METER ID UU14174217
[2016-05-18 14:43] LABS: POINT-OF-CARE METER ID UU14174217
[2016-05-18 17:43] LABS: POINT-OF-CARE METER ID UU14174217
[2016-05-18 21:09] LABS: POINT-OF-CARE METER ID UU14174217
[2016-05-19] VITALS (7 sets, daily range): BP systolic 91–149; BP diastolic 56–88
[2016-05-19 01:43] LABS: POINT-OF-CARE METER ID UU13113698
[2016-05-19 01:46] LABS: GLUCOSE 160 mg/dL (70-99)
[2016-05-19 05:20] LABS: POINT-OF-CARE METER ID UU13113698
[2016-05-19 07:02] LABS: ALKALINE PHOSPHATASE 98 IU/L (3-129); ANION GAP 9 MEQ/L (2-14); CHLORIDE 105 MEQ/L (99-109); GFR ESTIMATE (CALCULATED) > 59 mL/min/; GLUCOSE 134 mg/dL (70-99); MAGNESIUM 1.8 mg/dl (1.3-2.7); POTASSIUM 3.6 MEQ/L (3.7-5.4); SAMPLE HEMOLYSIS CHECK 0; SAMPLE ICTERIC CHECK 0; SAMPLE LIPEMIA CHECK 0; SODIUM 139 MEQ/L (136-147); TOTAL BILIRUBIN 0.3 MG/DL (0.0-1.0); UREA NITROGEN (BUN) 4 mg/dL (9-23)
[2016-05-19 07:14] LABS: EOSINOPHIL (%) 1.2 % (0-5); EOSINOPHIL COUNT 0.1 K/uL (0-0.3); HEMATOCRIT 34.6 % (38.0-50.0); IMMATURE GRANULOCYTE (%) 0.6 % (0.0-0.7); INSTRUMENT ABS NEUTROPHIL CT 1.9 K/uL; LYMPHOCYTE COUNT 2.5 K/uL (1.0-2.8); MCH 29.3 PG (29.0-34.0); MCHC 33.2 G/DL (30.0-36.0); MCV 88.3 FL (86-99); MEAN PLAT.VOLUME 9.2 uM^3 (9.0-12.4); MONOCYTE (%) 11.9 % (3-12); MONOCYTE COUNT 0.6 K/uL (0-0.8); NEUTROPHIL COUNT 1.9 K/uL (1.8-6.4); PLATELET COUNT 388 K/uL (156-360); RBC DIS.WIDTH-CV 12.7 % (11.8-14.6); RBC DIS.WIDTH-SD 39.7 % (39-53); RED BLOOD COUNT 3.92 M/uL (4.00-5.50); WHITE BLOOD COUNT 5.1 K/uL (4.1-10.2)
[2016-05-19 18:40] LABS: POINT-OF-CARE METER ID UU13113698
[2016-05-19 22:17] LABS: POINT-OF-CARE METER ID UU13113698
[2016-05-20 00:09] VITALS: BP 113/66
[2016-05-20 02:04] LABS: POINT-OF-CARE METER ID UU13113698
[2016-05-20 04:09] VITALS: BP 113/84
[2016-05-20 06:15] LABS: EOSINOPHIL (%) 1.1 % (0-5); EOSINOPHIL COUNT 0.1 K/uL (0-0.3); HEMATOCRIT 34.5 % (38.0-50.0); IMMATURE GRANULOCYTE (%) 0.6 % (0.0-0.7); INSTRUMENT ABS NEUTROPHIL CT 2.8 K/uL; LYMPHOCYTE COUNT 2.6 K/uL (1.0-2.8); MCH 29.4 PG (29.0-34.0); MCV 88.9 FL (86-99); MEAN PLAT.VOLUME 8.9 uM^3 (9.0-12.4); MONOCYTE COUNT 0.7 K/uL (0-0.8); NEUTROPHIL (%) 44.8 % (45-76); NEUTROPHIL COUNT 2.8 K/uL (1.8-6.4); PLATELET COUNT 441 K/uL (156-360); RBC DIS.WIDTH-CV 13.1 % (11.8-14.6); RBC DIS.WIDTH-SD 40.8 % (39-53); RED BLOOD COUNT 3.88 M/uL (4.00-5.50); WHITE BLOOD COUNT 6.2 K/uL (4.1-10.2)
[2016-05-20 06:55] VITALS: BP 113/70
[2016-05-20] MEDS ORDERED: EFFEXOR XR37.5 MG PO (06:57)
[2016-05-20] MEDS ORDERED: TRAZODONE HCL50 MG PO (06:58)
[2016-05-20] MEDS ORDERED: LEVEMIR100 UNIT/2 SC (06:59)
[2016-05-20 07:01] LABS: ALKALINE PHOSPHATASE 95 IU/L (3-129); ANION GAP 11 MEQ/L (2-14); CHLORIDE 104 MEQ/L (99-109); GFR ESTIMATE (CALCULATED) > 59 mL/min/; MAGNESIUM 1.7 mg/dl (1.3-2.7); POTASSIUM 3.9 MEQ/L (3.7-5.4); SAMPLE HEMOLYSIS CHECK 0; SAMPLE ICTERIC CHECK 0; SAMPLE LIPEMIA CHECK 0; SODIUM 138 MEQ/L (136-147); UREA NITROGEN (BUN) 6 mg/dL (9-23)
[2016-05-20 07:04] LABS: GLUCOSE 81 mg/dL (70-99); TOTAL BILIRUBIN 0.4 MG/DL (0.0-1.0)
[2016-05-20 07:59] LABS: POINT-OF-CARE METER ID UU13113698
[2016-05-20 08:28] LABS: POINT-OF-CARE METER ID UU14162636
[2016-05-20 08:33] LABS: POINT-OF-CARE METER ID UU13113731; POINT-OF-CARE USER ID 606021424
[2016-05-20 08:33] LABS: POINT-OF-CARE METER ID UU13113731
== END 2016-05-20 10:45 | disposition home health service (06) | DRG 208 ==
LOC: EME 13:05 → 4WEST 14:55 → 4EAST 14:55 → EDOF 14:55 → 4WEST 18:03 → 4EAST 05-12 21:33 → 4WEST 05-13 10:22 → 4EAST 05-19 00:51
PROVIDERS: Emergency Medicine; Internal Medicine; Internal Medicine Nephrology; Obstetrics & Gynecology
DX: J96.01 Acute respiratory failure with hypoxia (principal); G93.41 Metabolic encephalopathy; E10.10 Type 1 diabetes mellitus with ketoacidosis without coma; N17.9 Acute kidney failure, unspecified; I95.9 Hypotension, unspecified; K31.84 Gastroparesis; E10.42 Type 1 diabetes mellitus with diabetic polyneuropathy; E10.43 Type 1 diabetes mellitus with diabetic autonomic (poly)neuropathy; E87.0 Hyperosmolality and hypernatremia; F31.9 Bipolar disorder, unspecified; E87.5 Hyperkalemia; I25.10 Atherosclerotic heart disease of native coronary artery without angina pectoris; D63.8 Anemia in other chronic diseases classified elsewhere; E10.649 Type 1 diabetes mellitus with hypoglycemia without coma; Z79.4 Long term (current) use of insulin; E78.5 Hyperlipidemia, unspecified; E10.51 Type 1 diabetes mellitus with diabetic peripheral angiopathy without gangrene; I10 Essential (primary) hypertension; R13.10 Dysphagia, unspecified; K21.9 Gastro-esophageal reflux disease without esophagitis; E83.42 Hypomagnesemia; E87.6 Hypokalemia; Z89.429 Acquired absence of other toe(s), unspecified side
CPT/HCPCS: 36600; 70450; 71010; 80048; 80048 91; 80053; 81003; 82010; 82803; 82948; 83036; 83605; 83735; 84100; 84132 91; 84999; 85025; 85025 GA; 85027; 87040; 87070; 87086; 87205; 87641; 87801; 92526 GN; 92610 GN; 93005; 94002; 94003; 94640; 94640 76; 94760; 94799; 97530 GO; 97530 GP; 99202; 99281; 99285; C9113; G0480; J0610; J0692; J0696; J1644; J1815; J2405; J2704; J2765; J3010; J3475; J3480; J7030; J7040; J7050; J7120; S0028

== ENCOUNTER 2016-05-27 23:28 | Emergency (ER) | payer OTHER ==
[~2016-05-27] VITALS: Ht 172.7 cm; Wt 58.1 kg
[~2016-05-27 23:28] MED LIST changes: +CYMBALTA30 MG PO
[2016-05-28 00:34] LABS: HEMATOCRIT 36.4 % (38.0-50.0); MCH 30.5 PG (29.0-34.0); MCHC 33.2 G/DL (30.0-36.0); MCV 91.7 FL (86-99); MEAN PLAT.VOLUME 8.9 uM^3 (9.0-12.4); PLATELET COUNT 441 K/uL (156-360); RBC DIS.WIDTH-CV 13.6 % (11.8-14.6); RBC DIS.WIDTH-SD 45.5 % (39-53); RED BLOOD COUNT 3.97 M/uL (4.00-5.50); WHITE BLOOD COUNT 6.7 K/uL (4.1-10.2)
[2016-05-28 00:47] LABS: CHLORIDE 110 mEq/L (99-109); POTASSIUM 3.8 mEq/L (3.7-5.4); SODIUM 142 mEq/L (136-147)
[2016-05-28 00:48] LABS: ADD MIUA? NO; BILIRUBIN NEGATIVE; BLOOD NEGATIVE; COLOR YELLOW ((YELLOW)); GLUCOSE (STRIP) >=500; KETONES NEGATIVE; LEUKOCYTES NEGATIVE; NITRITE NEGATIVE; PROTEIN (STRIP) NEGATIVE; SPECIFIC GRAVITY 1.008 (1.000-1.030); UCUL ADDED? NO; UROBILINOGEN 0.2 MG/DL (0.2-1.0)
[2016-05-28 00:49] LABS: GLUCOSE 59 mg/dL (70-99)
[2016-05-28 00:50] LABS: ANION GAP 13 MEQ/L (2-14)
[2016-05-28 00:52] LABS: SERUM ETHYL ALCOHOL < 10 mg/dL
[2016-05-28 00:53] LABS: GFR ESTIMATE (CALCULATED) > 59 mL/min/
[2016-05-28 00:55] LABS: UREA NITROGEN (BUN) 4 mg/dL (9-23)
[2016-05-28 00:56] LABS: SALICYLATE < 5.0 MG/DL (15-30)
[2016-05-28 00:57] LABS: AMPHETAMINE NEGATIVE (500 ng/mL); BARBITURATES NEGATIVE (200 ng/mL); BENZODIAZEPINES PRESUMPTIVE POSITIVE (150 ng/mL); COCAINE NEGATIVE (150 ng/mL); INTERNAL CONTROLS VALID? YES; METHADONE NEGATIVE (200 ng/mL); METHAMPHETAMINE NEGATIVE (500 ng/mL); OPIATES (MORPHINE) NEGATIVE (100 ng/mL); OXYCODONE NEGATIVE (100 ng/mL); PHENCYCLIDINE NEGATIVE (25 ng/mL); PROPOXYPHENE NEGATIVE (300 ng/mL); THC CANNABINOIDS NEGATIVE (50 ng/mL); TRICYCLIC ANTIDEPRESSANTS NEGATIVE (300 ng/mL)
[2016-05-28 00:58] LABS: ADD MEDTOX COMMENT Y
[2016-05-28 04:08] LABS: BENZODIAZEPINES, URINE SCREEN POSITIVE (200 ng/mL)
[2016-05-28 04:30] VITALS: BP 113/87
== END 2016-05-28 04:38 | disposition home or self-care (01) ==
LOC: EME 23:28
PROVIDERS: Emergency Medicine
DX: F33.1 Major depressive disorder, recurrent, moderate (principal); T42.4X2A Poisoning by benzodiazepines, intentional self-harm, initial encounter; D64.9 Anemia, unspecified; I10 Essential (primary) hypertension; E78.5 Hyperlipidemia, unspecified; E11.9 Type 2 diabetes mellitus without complications; Z79.4 Long term (current) use of insulin; Z79.82 Long term (current) use of aspirin
CPT/HCPCS: 80048; 81003; 84999; 85027; 90837; 99281; 99284; G0480

== ENCOUNTER 2016-06-12 18:44 | Emergency (ER) | payer OTHER ==
[~2016-06-12] VITALS: Ht 172.7 cm; Wt 55.3 kg
[2016-06-12 19:58] LABS: HEMATOCRIT 38.5 % (38.0-50.0); MCH 29.9 PG (29.0-34.0); MCHC 33.2 G/DL (30.0-36.0); MEAN PLAT.VOLUME 8.9 uM^3 (9.0-12.4); PLATELET COUNT 316 K/uL (156-360); RBC DIS.WIDTH-CV 12.9 % (11.8-14.6); RBC DIS.WIDTH-SD 42.5 % (39-53); RED BLOOD COUNT 4.28 M/uL (4.00-5.50); WHITE BLOOD COUNT 7.9 K/uL (4.1-10.2)
[2016-06-12 20:12] LABS: CHLORIDE 103 mEq/L (99-109); POTASSIUM 3.9 mEq/L (3.7-5.4); SODIUM 137 mEq/L (136-147)
[2016-06-12 20:14] LABS: GLUCOSE 361 mg/dL (70-99)
[2016-06-12 20:15] LABS: ANION GAP 12 MEQ/L (2-14)
[2016-06-12 20:17] LABS: GFR ESTIMATE (CALCULATED) > 59 mL/min/; SERUM ETHYL ALCOHOL < 10 mg/dL
[2016-06-12 20:18] LABS: UREA NITROGEN (BUN) 11 mg/dL (9-23)
[2016-06-12 20:56] VITALS: BP 99/70
== END 2016-06-12 20:57 | disposition home or self-care (01) ==
LOC: EME 18:44
PROVIDERS: Emergency Medicine
DX: F31.30 Bipolar disorder, current episode depressed, mild or moderate severity, unspecified (principal); E87.5 Hyperkalemia; I10 Essential (primary) hypertension; E11.9 Type 2 diabetes mellitus without complications; I25.10 Atherosclerotic heart disease of native coronary artery without angina pectoris; Z87.442 Personal history of urinary calculi; Z79.4 Long term (current) use of insulin; Z79.82 Long term (current) use of aspirin
CPT/HCPCS: 80048; 85027; 90837; 99281; 99284; G0480

== ENCOUNTER 2016-06-15 14:58 | Emergency (ER) | payer OTHER ==
[~2016-06-15] VITALS: Ht 172.7 cm; Wt 55.3 kg
[2016-06-15 16:00] LABS: HEMATOCRIT 39.1 % (38.0-50.0); MCH 29.9 PG (29.0-34.0); MCHC 34.5 G/DL (30.0-36.0); MCV 86.5 FL (86-99); MEAN PLAT.VOLUME 8.9 uM^3 (9.0-12.4); PLATELET COUNT 392 K/uL (156-360); RBC DIS.WIDTH-CV 12.4 % (11.8-14.6); RBC DIS.WIDTH-SD 39.6 % (39-53); RED BLOOD COUNT 4.52 M/uL (4.00-5.50); WHITE BLOOD COUNT 8.7 K/uL (4.1-10.2)
[2016-06-15 16:05] LABS: CHLORIDE 100 mEq/L (99-109); SODIUM 137 mEq/L (136-147)
[2016-06-15 16:09] LABS: ANION GAP 12 MEQ/L (2-14)
[2016-06-15 16:10] LABS: SERUM ETHYL ALCOHOL < 10 mg/dL
[2016-06-15 16:11] LABS: GFR ESTIMATE (CALCULATED) > 59 mL/min/
[2016-06-15 16:12] LABS: UREA NITROGEN (BUN) 11 mg/dL (9-23)
[2016-06-15 16:15] LABS: GLUCOSE 60 mg/dL (70-99); POTASSIUM 3.1 mEq/L (3.7-5.4)
[2016-06-15 17:58] LABS: AMPHETAMINE NEGATIVE (500 ng/mL); BENZODIAZEPINES PRESUMPTIVE POSITIVE (150 ng/mL); COCAINE NEGATIVE (150 ng/mL); METHAMPHETAMINE NEGATIVE (500 ng/mL); OPIATES (MORPHINE) NEGATIVE (100 ng/mL); PHENCYCLIDINE NEGATIVE (25 ng/mL); THC CANNABINOIDS NEGATIVE (50 ng/mL)
[2016-06-15 17:59] LABS: ADD MEDTOX COMMENT Y; BARBITURATES NEGATIVE (200 ng/mL); INTERNAL CONTROLS VALID? YES; METHADONE NEGATIVE (200 ng/mL); OXYCODONE NEGATIVE (100 ng/mL); PROPOXYPHENE NEGATIVE (300 ng/mL); TRICYCLIC ANTIDEPRESSANTS NEGATIVE (300 ng/mL)
[2016-06-15 18:58] LABS: BENZODIAZEPINES, URINE SCREEN POSITIVE (200 ng/mL)
[2016-06-15 19:02] LABS: POINT-OF-CARE METER ID UU14100415
[2016-06-16 01:20] LABS: POINT-OF-CARE METER ID UU13113702
[2016-06-16 03:45] LABS: POINT-OF-CARE METER ID UU13113702
[2016-06-16 05:44] LABS: ADD MIUA? NO; BILIRUBIN NEGATIVE; BLOOD NEGATIVE; GLUCOSE (STRIP) >=500; KETONES 20; LEUKOCYTES NEGATIVE; NITRITE NEGATIVE; PROTEIN (STRIP) NEGATIVE; UROBILINOGEN 0.2 MG/DL (0.2-1.0)
[2016-06-16 05:47] LABS: COLOR PALE STRAW ((YELLOW))
[2016-06-16] MEDS ORDERED: EFFEXOR75 MG PO (08:35)
[2016-06-16] MEDS ORDERED: LEVEMIR100 UNIT/2 SC (08:38)
[2016-06-16 09:24] LABS: POINT-OF-CARE METER ID UU13113702
[2016-06-16 09:24] LABS: POINT-OF-CARE METER ID UU13113702
[2016-06-16 10:20] LABS: POINT-OF-CARE METER ID UU14100415
[2016-06-16 10:25] LABS: POINT-OF-CARE METER ID UU13113702
[2016-06-16 11:23] LABS: POINT-OF-CARE METER ID UU13113702
[2016-06-16 11:42] VITALS: BP 134/99
== END 2016-06-16 11:42 | disposition home or self-care (01) ==
LOC: EME 14:58
PROVIDERS: Emergency Medicine
DX: F32.9 Major depressive disorder, single episode, unspecified (principal); F31.9 Bipolar disorder, unspecified; R45.851 Suicidal ideations; E10.649 Type 1 diabetes mellitus with hypoglycemia without coma; I10 Essential (primary) hypertension; J45.909 Unspecified asthma, uncomplicated; Z79.4 Long term (current) use of insulin; Z79.82 Long term (current) use of aspirin; Z87.442 Personal history of urinary calculi; Z95.5 Presence of coronary angioplasty implant and graft; Z91.19 Patient's noncompliance with other medical treatment and regimen
CPT/HCPCS: 80048; 81003; 82948; 84999; 85027; 90837; 99281; 99285; G0480; J1885; J7030

== ENCOUNTER 2016-06-20 12:53 | Inpatient (IN) | payer OTHER ==
[~2016-06-20] VITALS: Ht 172.7 cm; Wt 59.8 kg
[2016-06-20 13:28] LABS: HEMATOCRIT 48.2 % (38.0-50.0); MEAN PLAT.VOLUME 9.4 uM^3 (9.0-12.4); PLATELET COUNT 490 K/uL (156-360); RBC DIS.WIDTH-CV 12.8 % (11.8-14.6); RBC DIS.WIDTH-SD 44.1 % (39-53); RED BLOOD COUNT 5.13 M/uL (4.00-5.50); WHITE BLOOD COUNT 11.1 K/uL (4.1-10.2)
[2016-06-20 13:37] LABS: CHLORIDE 101 mEq/L (99-109); SODIUM 139 mEq/L (136-147)
[2016-06-20 13:43] LABS: CREATININE 1.2 mg/dL (0.6-1.3); POTASSIUM 4.8 mEq/L (3.7-5.4)
[2016-06-20 13:43] LABS: ANION GAP 34 MEQ/L (2-14)
[2016-06-20 13:48] LABS: GFR ESTIMATE (CALCULATED) 39 mL/min/; POTASSIUM 5.1 mEq/L (3.7-5.4); UREA NITROGEN (BUN) 21 mg/dL (9-23)
[2016-06-20 13:51] LABS: TROP-I INTERPRETATION NEGATIVE; TROPONIN-I < 0.01 ng/mL (0.0-0.30)
[2016-06-20 13:56] LABS: VENOUS PCO2 28 mm Hg (41-51)
[2016-06-20 13:57] LABS: GLUCOSE 493 mg/dL (70-99)
[2016-06-20 14:24] LABS: Estimated Average Glucose 203 mg/dL (70-123); HEMOGLOBIN A1c (GLYCOHEMOGLOB) 8.7 % HGB (Below 5.7)
[2016-06-20 14:40] LABS: POINT-OF-CARE METER ID UU14100415
[2016-06-20 15:54] LABS: POINT-OF-CARE METER ID UU14100415
[2016-06-20 16:27] LABS: POINT-OF-CARE METER ID UU14100415
[2016-06-20 17:10] LABS: CHLORIDE 109 mEq/L (99-109); POTASSIUM 4.7 mEq/L (3.7-5.4); SODIUM 142 mEq/L (136-147)
[2016-06-20 17:13] LABS: ANION GAP 27 MEQ/L (2-14)
[2016-06-20 17:16] LABS: UREA NITROGEN (BUN) 19 mg/dL (9-23)
[2016-06-20 17:18] LABS: GFR ESTIMATE (CALCULATED) 54 mL/min/; GLUCOSE 208 mg/dL (70-99)
[2016-06-20 17:29] LABS: POINT-OF-CARE METER ID UU14100415
[2016-06-20 18:03] LABS: POINT-OF-CARE METER ID UU14100415
[2016-06-20 19:04] LABS: POINT-OF-CARE METER ID UU14100415
[2016-06-20 19:23] LABS: POINT-OF-CARE METER ID UU14100415
[2016-06-20 19:30] VITALS: BP 125/80
[2016-06-20 19:56] VITALS: BP 125/80
[2016-06-20 20:38] LABS: POINT-OF-CARE USER ID 609231305
[2016-06-20 21:00] VITALS: BP 118/71
[2016-06-20 21:13] LABS: METH RESISTANT S AUREUS PCR POSITIVE (NEGATIVE)
[2016-06-20 21:18] LABS: PROBE CHECK PASS
[2016-06-20 22:00] VITALS: BP 118/72
[2016-06-20 23:00] VITALS: BP 118/69
[2016-06-20 23:45] LABS: CHLORIDE 110 mEq/L (99-109); POTASSIUM 4.1 mEq/L (3.7-5.4); SODIUM 138 mEq/L (136-147)
[2016-06-20 23:47] LABS: GLUCOSE 212 mg/dL (70-99)
[2016-06-20 23:48] LABS: ANION GAP 18 MEQ/L (2-14)
[2016-06-20 23:51] LABS: GFR ESTIMATE (CALCULATED) > 59 mL/min/
[2016-06-20 23:57] LABS: UREA NITROGEN (BUN) 12 mg/dL (9-23)
[2016-06-21] VITALS (19 sets, daily range): BP systolic 92–139; BP diastolic 53–79
[2016-06-21 00:04] LABS: POINT-OF-CARE METER ID UU14174217
[2016-06-21 02:20] LABS: POINT-OF-CARE METER ID UU14162636
[2016-06-21 03:15] LABS: POINT-OF-CARE METER ID UU14162636
[2016-06-21 04:16] LABS: POINT-OF-CARE METER ID UU14162636
[2016-06-21 04:55] LABS: EOSINOPHIL (%) 0.5 % (0-5); HEMATOCRIT 35.8 % (38.0-50.0); IMMATURE GRANULOCYTE (%) 0.8 % (0.0-0.7); IMMATURE GRANULOCYTE COUNT 0.1 K/uL; INSTRUMENT ABS NEUTROPHIL CT 4.2 K/uL; LYMPHOCYTE COUNT 3.1 K/uL (1.0-2.8); MCH 30.1 PG (29.0-34.0); MCHC 33.2 G/DL (30.0-36.0); MCV 90.4 FL (86-99); MONOCYTE (%) 4.7 % (3-12); MONOCYTE COUNT 0.4 K/uL (0-0.8); NEUTROPHIL (%) 53.8 % (45-76); NEUTROPHIL COUNT 4.2 K/uL (1.8-6.4); RBC DIS.WIDTH-CV 13.1 % (11.8-14.6); RBC DIS.WIDTH-SD 43.5 % (39-53); WHITE BLOOD COUNT 7.8 K/uL (4.1-10.2)
[2016-06-21 04:57] LABS: RED BLOOD COUNT 3.96 M/uL (4.00-5.50)
[2016-06-21 05:08] LABS: CHLORIDE 113 mEq/L (99-109); POTASSIUM 3.8 mEq/L (3.7-5.4); SODIUM 139 mEq/L (136-147)
[2016-06-21 05:09] LABS: GLUCOSE 208 mg/dL (70-99)
[2016-06-21 05:11] LABS: ANION GAP 15 MEQ/L (2-14)
[2016-06-21 05:13] LABS: GFR ESTIMATE (CALCULATED) > 59 mL/min/
[2016-06-21 05:14] LABS: UREA NITROGEN (BUN) 9 mg/dL (9-23)
[2016-06-21 05:20] LABS: POINT-OF-CARE METER ID UU14162636
[2016-06-21 05:38] LABS: ABS NEUTROPHIL COUNT 4.2; BAND NEUTROPHILS 0.9 % (0-8.0); EOSINOPHIL ABS CT 0.1; EOSINOPHILS 1.9 % (0-5.0); LYMPHOCYTES 39.2 % (15.0-45.0); MEAN PLAT.VOLUME 9.5 uM^3 (9.0-12.4); PLAT.SUFFICIENCY ADEQUATE; SEG.NEUTROPHILS 53.3 % (46.0-76.0)
[2016-06-21 05:54] LABS: PLATELET COUNT 279 K/uL (156-360)
[2016-06-21 06:17] LABS: POINT-OF-CARE METER ID UU14162636
[2016-06-21 07:25] LABS: POINT-OF-CARE METER ID UU14162636
[2016-06-21 08:27] LABS: POINT-OF-CARE METER ID UU14162636
[2016-06-21 09:30] LABS: POINT-OF-CARE METER ID UU14162636
[2016-06-21 10:00] LABS: ANION GAP 11 MEQ/L (2-14); CHLORIDE 114 MEQ/L (99-109); GFR ESTIMATE (CALCULATED) > 59 mL/min/; GLUCOSE 127 mg/dL (70-99); POTASSIUM 3.3 MEQ/L (3.7-5.4); SAMPLE HEMOLYSIS CHECK 0; SAMPLE ICTERIC CHECK 0; SAMPLE LIPEMIA CHECK 0; SODIUM 144 MEQ/L (136-147); UREA NITROGEN (BUN) 7 mg/dL (9-23)
[2016-06-21] MEDS ORDERED: DIAZEPAM10 MG PO (10:00)
[2016-06-21] MEDS ORDERED: OXCARBAZEPINE600 MG PO (10:01)
[2016-06-21] MEDS ORDERED: NOVOLOG 10100 UNITS/ SC (10:02)
[2016-06-21] MEDS ORDERED: DESYREL 150 MG150 MG PO (10:03)
[2016-06-21] MEDS ORDERED: DULOXETINE HCL30 MG PO (10:03)
[2016-06-21] MEDS ORDERED: METOCLOPRAMIDE H5 MG PO (10:03)
[2016-06-21] MEDS ORDERED: OMEPRAZOLE40 M1 PO (10:03)
[2016-06-21] MEDS ORDERED: METOPROLOL SUCC25 MG PO (10:04)
[2016-06-21] MEDS ORDERED: ECOTRIN325 MG PO (10:04)
[2016-06-21] MEDS ORDERED: LYRICA100 MG PO (10:04)
[2016-06-21] MEDS ORDERED: LEVEMIR100 UNIT/2 SC (10:17)
[2016-06-21] MEDS ORDERED: VENLAFAXINE HCL75 M3 PO (10:23)
[2016-06-21] MEDS ORDERED: VENLAFAXINE HC150 M1 PO (10:23)
[2016-06-21 10:37] LABS: POINT-OF-CARE METER ID UU14162636
[2016-06-21 11:56] LABS: POINT-OF-CARE METER ID UU14162636
[2016-06-21 12:16] LABS: ANION GAP 15 MEQ/L (2-14); CHLORIDE 111 MEQ/L (99-109); POTASSIUM 3.3 MEQ/L (3.7-5.4); SAMPLE HEMOLYSIS CHECK 0; SAMPLE ICTERIC CHECK 0; SAMPLE LIPEMIA CHECK 0; SODIUM 144 MEQ/L (136-147)
[2016-06-21 12:22] LABS: GFR ESTIMATE (CALCULATED) > 59 mL/min/; GLUCOSE 184 mg/dL (70-99); UREA NITROGEN (BUN) 7 mg/dL (9-23)
[2016-06-21 13:32] LABS: POINT-OF-CARE METER ID UU14174217
[2016-06-21 14:37] LABS: POINT-OF-CARE METER ID UU14100415
[2016-06-21 14:37] LABS: POINT-OF-CARE METER ID UU14162636
[2016-06-21 15:53] LABS: POINT-OF-CARE METER ID UU14162636
[2016-06-21 17:40] LABS: POINT-OF-CARE METER ID UU14162636
[2016-06-21 18:21] LABS: BASE EXCESS -4.4 mEq/L (-3 to +3); BICARBONATE 20.1 mEq/L (22-26); CARBOXY HGB 1.4 % (0-5); COMMENTS - BLOOD GASES NEG A+C+; DEVICE RA; METHEMOGLOBIN 1.6 % (0-1.5); PCO2 34 mm Hg (35-45); PO2 100 mm Hg (80-100); SITE LR; TOTAL RESP RATE 12 resp/min; pH 7.38 (7.35-7.45)
[2016-06-21 22:55] LABS: POINT-OF-CARE METER ID UU14174217; POINT-OF-CARE USER ID PHATLC
[2016-06-22] VITALS (10 sets, daily range): BP systolic 0–140; BP diastolic 0–78
[2016-06-22 02:55] LABS: POINT-OF-CARE METER ID UU13113731; POINT-OF-CARE USER ID PHATLC
[2016-06-22 06:26] LABS: POINT-OF-CARE METER ID UU13113731; POINT-OF-CARE USER ID PHATLC
[2016-06-22 06:26] LABS: POINT-OF-CARE METER ID UU13113731; POINT-OF-CARE USER ID PHATLC
[2016-06-22 09:10] LABS: HEMATOCRIT 31.2 % (38.0-50.0); MCH 30.2 PG (29.0-34.0); MCHC 34.6 G/DL (30.0-36.0); MCV 87.2 FL (86-99); MEAN PLAT.VOLUME 9.1 uM^3 (9.0-12.4); PLATELET COUNT 256 K/uL (156-360); RBC DIS.WIDTH-CV 13.2 % (11.8-14.6); RED BLOOD COUNT 3.58 M/uL (4.00-5.50); WHITE BLOOD COUNT 5.7 K/uL (4.1-10.2)
[2016-06-22 09:36] LABS: ANION GAP 7 MEQ/L (2-14); CHLORIDE 109 MEQ/L (99-109); GFR ESTIMATE (CALCULATED) > 59 mL/min/; GLUCOSE 73 mg/dL (70-99); MAGNESIUM 1.3 mg/dl (1.3-2.7); POTASSIUM 2.7 MEQ/L (3.7-5.4); SAMPLE HEMOLYSIS CHECK 0; SAMPLE ICTERIC CHECK 0; SAMPLE LIPEMIA CHECK 0; SODIUM 144 MEQ/L (136-147); UREA NITROGEN (BUN) 2 mg/dL (9-23)
[2016-06-23 02:33] LABS: POINT-OF-CARE METER ID UU14188625
[2016-06-23 02:55] LABS: POINT-OF-CARE METER ID UU14188625
[2016-06-23 06:12] LABS: POINT-OF-CARE METER ID UU14174225
[2016-06-23 06:37] LABS: HEMATOCRIT 29.9 % (38.0-50.0); MCH 30.4 PG (29.0-34.0); MCHC 34.4 G/DL (30.0-36.0); MCV 88.2 FL (86-99); MEAN PLAT.VOLUME 9.2 uM^3 (9.0-12.4); PLATELET COUNT 236 K/uL (156-360); RBC DIS.WIDTH-SD 41.8 % (39-53); RED BLOOD COUNT 3.39 M/uL (4.00-5.50)
[2016-06-23 06:45] LABS: WHITE BLOOD COUNT 3.4 K/uL (4.1-10.2)
[2016-06-23 06:50] LABS: POINT-OF-CARE METER ID UU14188625
[2016-06-23 07:16] LABS: ANION GAP 7 MEQ/L (2-14); CHLORIDE 109 MEQ/L (99-109); GFR ESTIMATE (CALCULATED) > 59 mL/min/; GLUCOSE 63 mg/dL (70-99); POTASSIUM 2.9 MEQ/L (3.7-5.4); SAMPLE HEMOLYSIS CHECK 0; SAMPLE ICTERIC CHECK 0; SAMPLE LIPEMIA CHECK 0; SODIUM 143 MEQ/L (136-147); UREA NITROGEN (BUN) 3 mg/dL (9-23)
[2016-06-23 07:57] VITALS: BP 100/65
[2016-06-23 10:34] VITALS: BP 111/69
[2016-06-23 15:20] VITALS: BP 117/74
[2016-06-24 00:05] VITALS: BP 135/84
[2016-06-24 01:55] LABS: POINT-OF-CARE METER ID UU14188625
[2016-06-24 06:04] LABS: POINT-OF-CARE METER ID UU14188625
[2016-06-24 06:33] LABS: POINT-OF-CARE METER ID UU14188625
[2016-06-24] MEDS ORDERED: DULOXETINE HCL30 MG PO (06:55)
[2016-06-24] MEDS ORDERED: TRAZODONE HCL50 MG PO (06:55)
[2016-06-24] MEDS ORDERED: ATORVASTATIN CA80 MG PO (06:56)
[2016-06-24 06:59] LABS: HEMATOCRIT 32.4 % (38.0-50.0); MCH 29.9 PG (29.0-34.0); MEAN PLAT.VOLUME 9.8 uM^3 (9.0-12.4); PLATELET COUNT 264 K/uL (156-360); RBC DIS.WIDTH-CV 12.7 % (11.8-14.6); RBC DIS.WIDTH-SD 40.6 % (39-53); RED BLOOD COUNT 3.68 M/uL (4.00-5.50); WHITE BLOOD COUNT 4.9 K/uL (4.1-10.2)
[2016-06-24 08:00] VITALS: BP 109/67
[2016-06-24 08:26] LABS: CHLORIDE 105 mEq/L (99-109); POTASSIUM 3.3 mEq/L (3.7-5.4); SODIUM 140 mEq/L (136-147)
[2016-06-24 08:28] LABS: GLUCOSE 43 mg/dL (70-99)
[2016-06-24 08:30] LABS: ANION GAP 11 MEQ/L (2-14)
[2016-06-24 08:32] LABS: GFR ESTIMATE (CALCULATED) > 59 mL/min/
[2016-06-24 08:33] LABS: UREA NITROGEN (BUN) 8 mg/dL (9-23)
[2016-06-24 09:18] LABS: POINT-OF-CARE METER ID UU14188625
[2016-06-24 09:21] LABS: POINT-OF-CARE METER ID UU14174225
[2016-06-24 10:10] LABS: POINT-OF-CARE METER ID UU14174225
[2016-06-24 10:28] VITALS: BP 123/76
== END 2016-06-24 11:05 | disposition home or self-care (01) | DRG 638 ==
LOC: EME → EDBD 12:53 → EME 12:53 → 4WEST 15:21 → EDOF 15:21 → 5SOUTH 15:21 → EDOF 15:21 → 4WEST 19:23 → 5SOUTH 06-22 12:21
PROVIDERS: Emergency Medicine; Hospitalist; Internal Medicine; Internal Medicine Pulmonary Disease; Surgery Surgical Critical Care
DX: E10.10 Type 1 diabetes mellitus with ketoacidosis without coma (principal); N17.9 Acute kidney failure, unspecified; E10.649 Type 1 diabetes mellitus with hypoglycemia without coma; K31.84 Gastroparesis; E10.42 Type 1 diabetes mellitus with diabetic polyneuropathy; E10.51 Type 1 diabetes mellitus with diabetic peripheral angiopathy without gangrene; I25.10 Atherosclerotic heart disease of native coronary artery without angina pectoris; I10 Essential (primary) hypertension; R07.9 Chest pain, unspecified; F31.9 Bipolar disorder, unspecified; E10.43 Type 1 diabetes mellitus with diabetic autonomic (poly)neuropathy; E78.5 Hyperlipidemia, unspecified; Z89.429 Acquired absence of other toe(s), unspecified side; Z95.5 Presence of coronary angioplasty implant and graft; G40.909 Epilepsy, unspecified, not intractable, without status epilepticus; Z91.19 Patient's noncompliance with other medical treatment and regimen
CPT/HCPCS: 36600; 71010; 80047; 80048; 80048 91; 81003; 82010; 82803; 82948; 83036; 83605; 83735; 84484; 85025; 85027; 87641; 93005; 99281; 99285; J1644; J1815; J7042; J7050

== ENCOUNTER 2016-10-01 23:53 | Emergency (ER) | payer OTHER ==
[~2016-10-01] VITALS: Ht 175.3 cm; Wt 59.2 kg
[~2016-10-01 23:53] MED LIST changes: +DULOXETINE HCL30 MG PO; +ECOTRIN325 MG PO; +METOCLOPRAMIDE H5 MG PO
[2016-10-02 00:49] LABS: ADD MIUA? NO; BILIRUBIN NEGATIVE; BLOOD NEGATIVE; COLOR YELLOW ((YELLOW)); GLUCOSE (STRIP) >=500; KETONES NEGATIVE; LEUKOCYTES NEGATIVE; NITRITE NEGATIVE; PROTEIN (STRIP) NEGATIVE; SPECIFIC GRAVITY 1.029 (1.000-1.030); UCUL ADDED? NO; UROBILINOGEN 0.2 MG/DL (0.2-1.0)
[2016-10-02 01:19] LABS: HEMATOCRIT 37.3 % (38.0-50.0); MCH 29.7 PG (29.0-34.0); MCHC 32.4 G/DL (30.0-36.0); MCV 91.4 FL (86-99); MEAN PLAT.VOLUME 8.6 uM^3 (9.0-12.4); PLATELET COUNT 417 K/uL (156-360); RBC DIS.WIDTH-CV 13.5 % (11.8-14.6); RBC DIS.WIDTH-SD 45.9 % (39-53); RED BLOOD COUNT 4.08 M/uL (4.00-5.50); WHITE BLOOD COUNT 11.2 K/uL (4.1-10.2)
[2016-10-02 01:40] LABS: CHLORIDE 102 mEq/L (99-109); POTASSIUM 3.7 mEq/L (3.7-5.4); SODIUM 137 mEq/L (136-147)
[2016-10-02 01:42] LABS: GLUCOSE 64 mg/dL (70-99)
[2016-10-02 01:44] LABS: ANION GAP 8 MEQ/L (2-14); TOTAL BILIRUBIN 0.3 mg/dL (0.0-1.0)
[2016-10-02 01:44] LABS: ADD MEDTOX COMMENT Y; AMPHETAMINE NEGATIVE (500 ng/mL); BARBITURATES NEGATIVE (200 ng/mL); BENZODIAZEPINES PRESUMPTIVE POSITIVE (150 ng/mL); COCAINE NEGATIVE (150 ng/mL); INTERNAL CONTROLS VALID? YES; METHADONE NEGATIVE (200 ng/mL); METHAMPHETAMINE NEGATIVE (500 ng/mL); OPIATES (MORPHINE) NEGATIVE (100 ng/mL); OXYCODONE NEGATIVE (100 ng/mL); PHENCYCLIDINE NEGATIVE (25 ng/mL); PROPOXYPHENE NEGATIVE (300 ng/mL); THC CANNABINOIDS NEGATIVE (50 ng/mL); TRICYCLIC ANTIDEPRESSANTS NEGATIVE (300 ng/mL)
[2016-10-02 01:46] LABS: ALKALINE PHOSPHATASE 127 IU/L (3-129); GFR ESTIMATE (CALCULATED) > 59 mL/min/
[2016-10-02 01:47] LABS: UREA NITROGEN (BUN) 17 mg/dL (9-23)
[2016-10-02 02:37] LABS: POINT-OF-CARE METER ID UU14100415
[2016-10-02 02:57] LABS: BENZODIAZEPINES, URINE SCREEN POSITIVE (200 ng/mL)
[2016-10-02 03:04] LABS: POINT-OF-CARE METER ID UU14100415
[2016-10-02 03:08] VITALS: BP 99/70
[2016-10-02 18:57] LABS: POINT-OF-CARE METER ID UU14100415
== END 2016-10-02 03:09 | disposition home or self-care (01) ==
LOC: EME → EDBD 23:53 → EME 10-02 03:09
PROVIDERS: Emergency Medicine
DX: R53.83 Other fatigue (principal); F32.9 Major depressive disorder, single episode, unspecified; E11.9 Type 2 diabetes mellitus without complications; Z79.4 Long term (current) use of insulin; R22.2 Localized swelling, mass and lump, trunk; I10 Essential (primary) hypertension; Z95.5 Presence of coronary angioplasty implant and graft; Z79.82 Long term (current) use of aspirin
CPT/HCPCS: 80053; 81003; 82948; 84999; 85027; 93005; 99281; 99285; J7030

== ENCOUNTER 2016-11-02 04:16 | Emergency (ER) | payer OTHER ==
[~2016-11-02] VITALS: Ht 175.3 cm; Wt 60.6 kg
[2016-11-02 04:31] LABS: POINT-OF-CARE METER ID UU13113702
[2016-11-02 05:00] LABS: HEMATOCRIT 35.8 % (38.0-50.0); MCH 29.4 PG (29.0-34.0); MCV 89.3 FL (86-99); MEAN PLAT.VOLUME 8.6 uM^3 (9.0-12.4); PLATELET COUNT 355 K/uL (156-360); RBC DIS.WIDTH-SD 39.5 % (39-53); RED BLOOD COUNT 4.01 M/uL (4.00-5.50); WHITE BLOOD COUNT 7.4 K/uL (4.1-10.2)
[2016-11-02 05:10] LABS: CHLORIDE 105 mEq/L (99-109); POTASSIUM 4.1 mEq/L (3.7-5.4); SODIUM 137 mEq/L (136-147)
[2016-11-02 05:12] LABS: GLUCOSE 111 mg/dL (70-99)
[2016-11-02 05:13] LABS: ANION GAP 11 MEQ/L (2-14)
[2016-11-02 05:13] LABS: POINT-OF-CARE METER ID UU13113702
[2016-11-02 05:14] LABS: TOTAL BILIRUBIN 0.2 mg/dL (0.0-1.0)
[2016-11-02 05:16] LABS: ALKALINE PHOSPHATASE 130 IU/L (3-129); GFR ESTIMATE (CALCULATED) > 59 mL/min/
[2016-11-02 05:17] LABS: UREA NITROGEN (BUN) 7 mg/dL (9-23)
[2016-11-02 05:19] LABS: LIPASE 20 U/L (1.0-51.0)
[2016-11-02 06:20] LABS: POINT-OF-CARE METER ID UU13113702
[2016-11-02 06:28] VITALS: BP 118/80
== END 2016-11-02 06:29 | disposition home or self-care (01) ==
LOC: EME → EDBD 04:16 → EME 06:29
PROVIDERS: Emergency Medicine
DX: E11.649 Type 2 diabetes mellitus with hypoglycemia without coma (principal); E11.621 Type 2 diabetes mellitus with foot ulcer; L97.529 Non-pressure chronic ulcer of other part of left foot with unspecified severity; Z79.4 Long term (current) use of insulin; R79.89 Other specified abnormal findings of blood chemistry; E78.5 Hyperlipidemia, unspecified; I10 Essential (primary) hypertension; Z87.442 Personal history of urinary calculi; Z95.5 Presence of coronary angioplasty implant and graft
CPT/HCPCS: 71010; 80053; 81003; 82948; 83690; 85027; 99281; 99284

== ENCOUNTER 2017-01-25 11:54 | Emergency (ER) | payer OTHER ==
[~2017-01-25] VITALS: Ht 175.3 cm; Wt 60.3 kg
[~2017-01-25 11:54] MED LIST changes: +ADVIL200 MG PO; +CYANOCOBALAM1000 MCG PO; +LEVAQUIN750 MG PO; +REGLAN5 MG PO
[2017-01-25 12:22] LABS: POINT-OF-CARE METER ID UU13113747
[2017-01-25 12:53] LABS: ADD MIUA? YES; BILIRUBIN NEGATIVE; BLOOD NEGATIVE; COLOR YELLOW ((YELLOW)); GLUCOSE (STRIP) >=500; KETONES NEGATIVE; LEUKOCYTES NEGATIVE; NITRITE NEGATIVE; PROTEIN (STRIP) 100; SPECIFIC GRAVITY 1.018 (1.000-1.030); UROBILINOGEN 0.2 MG/DL (0.2-1.0)
[2017-01-25 12:55] LABS: BACTERIA NONE SEEN /HPF; EPITHELIAL CELLS NONE SEEN /HPF; MUCUS TRACE /LPF; RED BLOOD CELLS 0-5 /HPF (0-5); UCUL ADDED? NO; WHITE BLOOD CELLS 0-5 /HPF (0-5)
[2017-01-25 13:13] LABS: EOSINOPHIL COUNT 0.1 K/uL (0-0.3); HEMATOCRIT 36.9 % (38.0-50.0); IMMATURE GRANULOCYTE (%) 0.2 % (0.0-0.7); INSTRUMENT ABS NEUTROPHIL CT 5.4 K/uL; LYMPHOCYTE COUNT 2.5 K/uL (1.0-2.8); MCH 29.5 PG (29.0-34.0); MCHC 33.1 G/DL (30.0-36.0); MCV 89.1 FL (86-99); MEAN PLAT.VOLUME 9.3 uM^3 (9.0-12.4); MONOCYTE (%) 5.9 % (3-12); MONOCYTE COUNT 0.5 K/uL (0-0.8); NEUTROPHIL (%) 63.1 % (45-76); NEUTROPHIL COUNT 5.4 K/uL (1.8-6.4); PLATELET COUNT 296 K/uL (156-360); RBC DIS.WIDTH-CV 12.7 % (11.8-14.6); RBC DIS.WIDTH-SD 41.4 % (39-53); RED BLOOD COUNT 4.14 M/uL (4.00-5.50); WHITE BLOOD COUNT 8.6 K/uL (4.1-10.2)
[2017-01-25 13:26] LABS: POINT-OF-CARE METER ID UU13113747
[2017-01-25 13:27] LABS: CHLORIDE 106 mEq/L (99-109); SODIUM 135 mEq/L (136-147)
[2017-01-25 13:28] LABS: GLUCOSE 343 mg/dL (70-99)
[2017-01-25 13:30] LABS: ANION GAP 10 MEQ/L (2-14)
[2017-01-25 13:32] LABS: GFR ESTIMATE (CALCULATED) > 59 mL/min/
[2017-01-25 13:33] LABS: UREA NITROGEN (BUN) 13 mg/dL (9-23)
[2017-01-25 13:36] LABS: TOTAL BILIRUBIN 0.3 mg/dL (0.0-1.0)
[2017-01-25 13:37] LABS: ALKALINE PHOSPHATASE 136 IU/L (3-129)
[2017-01-25 13:39] LABS: DIRECT BILIRUBIN 0.1 mg/dL (0.0-0.3)
[2017-01-25 13:40] LABS: LIPASE 34 U/L (1.0-51.0)
[2017-01-25 13:46] LABS: TROP-I INTERPRETATION NEGATIVE; TROPONIN-I < 0.01 ng/mL (0.0-0.30)
[2017-01-25] MEDS ORDERED: FLAGYL500 MG PO (14:49)
[2017-01-25] MEDS ORDERED: CIPRO500 MG PO (14:49)
[2017-01-25] MEDS ORDERED: MIRALAX119 GM PO (14:49)
[2017-01-25 15:10] VITALS: BP 101/89
== END 2017-01-25 15:44 | disposition home or self-care (01) ==
LOC: EME 11:54
PROVIDERS: Emergency Medicine
DX: K59.00 Constipation, unspecified (principal); K52.9 Noninfective gastroenteritis and colitis, unspecified; E11.649 Type 2 diabetes mellitus with hypoglycemia without coma; R42 Dizziness and giddiness; M54.9 Dorsalgia, unspecified; R16.0 Hepatomegaly, not elsewhere classified; Z87.442 Personal history of urinary calculi; I10 Essential (primary) hypertension; E78.5 Hyperlipidemia, unspecified; Z95.5 Presence of coronary angioplasty implant and graft; Z79.4 Long term (current) use of insulin; Z79.82 Long term (current) use of aspirin
CPT/HCPCS: 71020; 74176; 80048; 80076; 81003; 82948; 83690; 84484; 85025; 99281; 99284

== ENCOUNTER 2017-02-23 18:13 | Emergency (ER) | payer OTHER ==
[~2017-02-23] VITALS: Ht 175.3 cm; Wt 60.3 kg
[~2017-02-23 18:13] MED LIST changes: +FLAGYL500 MG PO; +MIRALAX119 GM PO
[2017-02-23 19:12] LABS: HEMATOCRIT 41.8 % (38.0-50.0); MCH 29.9 PG (29.0-34.0); MCV 90.5 FL (86-99); MEAN PLAT.VOLUME 8.6 uM^3 (9.0-12.4); RBC DIS.WIDTH-CV 12.6 % (11.8-14.6); RBC DIS.WIDTH-SD 41.9 % (39-53); RED BLOOD COUNT 4.62 M/uL (4.00-5.50); WHITE BLOOD COUNT 7.2 K/uL (4.1-10.2)
[2017-02-23 19:19] LABS: PLATELET COUNT 431 K/uL (156-360)
[2017-02-23 19:48] LABS: ANION GAP 10 MEQ/L (2-14); CHLORIDE 104 MEQ/L (99-109); SAMPLE HEMOLYSIS CHECK 0; SAMPLE ICTERIC CHECK 0; SAMPLE LIPEMIA CHECK 0; SODIUM 138 MEQ/L (136-147); TOTAL BILIRUBIN 0.3 MG/DL (0.0-1.0)
[2017-02-23 19:53] LABS: ALKALINE PHOSPHATASE 121 IU/L (3-129); GFR ESTIMATE (CALCULATED) > 59 mL/min/ (58.99-99999); GLUCOSE 103 mg/dL (70-99); UREA NITROGEN (BUN) 9 mg/dL (9-23)
[2017-02-23 20:19] LABS: ADD MIUA? NO; BILIRUBIN NEGATIVE; BLOOD NEGATIVE; COLOR YELLOW ((YELLOW)); GLUCOSE (STRIP) 50; KETONES NEGATIVE; LEUKOCYTES NEGATIVE; NITRITE NEGATIVE; PROTEIN (STRIP) 30; SPECIFIC GRAVITY 1.015 (1.000-1.030); UCUL ADDED? NO; UROBILINOGEN 0.2 MG/DL (0.2-1.0)
[2017-02-23 20:30] LABS: POINT-OF-CARE METER ID UU13113747
[2017-02-23 21:53] VITALS: BP 125/84
== END 2017-02-23 21:53 | disposition home or self-care (01) ==
LOC: EME 18:13
PROVIDERS: Emergency Medicine
DX: E11.649 Type 2 diabetes mellitus with hypoglycemia without coma (principal); Z79.4 Long term (current) use of insulin; J45.909 Unspecified asthma, uncomplicated; I25.10 Atherosclerotic heart disease of native coronary artery without angina pectoris; I10 Essential (primary) hypertension; E78.5 Hyperlipidemia, unspecified; R56.9 Unspecified convulsions; F32.9 Major depressive disorder, single episode, unspecified; F41.9 Anxiety disorder, unspecified; F31.9 Bipolar disorder, unspecified; Z95.5 Presence of coronary angioplasty implant and graft; Z87.442 Personal history of urinary calculi
CPT/HCPCS: 80053; 81003; 82948; 85027; 99281; 99284

== ENCOUNTER 2017-04-05 22:12 | Emergency (ER) | payer OTHER ==
[~2017-04-05] VITALS: Ht 175.3 cm; Wt 63.4 kg
[2017-04-05 23:12] LABS: HEMATOCRIT 38.2 % (38.0-50.0); HEMOGLOBIN 12.9 G/DL (12.5-16.6); MCH 29.5 PG (29.0-34.0); MCHC 33.8 G/DL (30.0-36.0); MCV 87.4 FL (86-99); PLATELET COUNT 296 K/uL (156-360); RBC DIS.WIDTH-CV 12.9 % (11.8-14.6); RBC DIS.WIDTH-SD 41.7 % (39-53); RED BLOOD COUNT 4.37 M/uL (4.00-5.50); WHITE BLOOD COUNT 3.8 K/uL (4.1-10.2)
[2017-04-05 23:24] LABS: CHLORIDE 102 mEq/L (99-109); POTASSIUM 4.6 mEq/L (3.7-5.4); SODIUM 132 mEq/L (136-147)
[2017-04-05 23:29] LABS: CREATININE 0.9 mg/dL (0.6-1.3); GFR ESTIMATE (CALCULATED) > 59 mL/min/ (58.99-99999); SERUM ETHYL ALCOHOL < 10 mg/dL
[2017-04-05 23:30] LABS: UREA NITROGEN (BUN) 12 mg/dL (9-23)
[2017-04-05 23:57] LABS: GLUCOSE 577 mg/dL (70-99)
[2017-04-06 02:09] LABS: APPEARANCE CLEAR ((CLEAR)); BILIRUBIN NEGATIVE; BLOOD NEGATIVE; COLOR STRAW ((YELLOW)); GLUCOSE (STRIP) >=500; KETONES 5; LEUKOCYTES NEGATIVE; NITRITE NEGATIVE; PROTEIN (STRIP) NEGATIVE; SPECIFIC GRAVITY 1.026 (1.000-1.030); UCUL ADDED? NO; UROBILINOGEN 0.2 MG/DL (0.2-1.0)
[2017-04-06 02:31] LABS: AMPHETAMINE NEGATIVE (500 ng/mL); BARBITURATES NEGATIVE (200 ng/mL); BENZODIAZEPINES PRESUMPTIVE POSITIVE (150 ng/mL); COCAINE NEGATIVE (150 ng/mL); METHADONE NEGATIVE (200 ng/mL); METHAMPHETAMINE NEGATIVE (500 ng/mL); OPIATES (MORPHINE) NEGATIVE (100 ng/mL); OXYCODONE NEGATIVE (100 ng/mL); PHENCYCLIDINE NEGATIVE (25 ng/mL); PROPOXYPHENE NEGATIVE (300 ng/mL); THC CANNABINOIDS NEGATIVE (50 ng/mL); TRICYCLIC ANTIDEPRESSANTS NEGATIVE (300 ng/mL)
[2017-04-06 02:32] LABS: BUPRENORPHINE NEGATIVE (10 ng/mL)
[2017-04-06 04:44] LABS: BENZODIAZEPINES, URINE SCREEN POSITIVE (200 ng/mL)
[2017-04-06 08:07] VITALS: BP 125/84
== END 2017-04-06 08:13 ==
LOC: EME → EDBD 22:12 → EME 04-06 08:13
PROVIDERS: Emergency Medicine
PROC: 3E0234Z Introduction of Serum, Toxoid and Vaccine into Muscle, Percutaneous Approach (ICD-10-PCS; principal; 2017-04-06)
DX: F32.9 Major depressive disorder, single episode, unspecified (principal); R45.851 Suicidal ideations; S61.512A Laceration without foreign body of left wrist, initial encounter; E11.65 Type 2 diabetes mellitus with hyperglycemia; I10 Essential (primary) hypertension; E78.5 Hyperlipidemia, unspecified; I25.10 Atherosclerotic heart disease of native coronary artery without angina pectoris; J45.909 Unspecified asthma, uncomplicated; F41.9 Anxiety disorder, unspecified; W26.0XXA Contact with knife, initial encounter; Z23 Encounter for immunization; Z04.6 Encounter for general psychiatric examination, requested by authority; Z79.4 Long term (current) use of insulin; Z95.5 Presence of coronary angioplasty implant and graft; Z87.442 Personal history of urinary calculi
CPT/HCPCS: 80048; 81003; 82948; 84999; 85027; 90837; 99281; 99285; G0480; J7030

== ENCOUNTER 2017-06-02 11:40 | Inpatient (IN) | payer OTHER ==
[~2017-06-02] VITALS: Ht 172.7 cm; Wt 66.1 kg
[2017-06-02] VITALS (11 sets, daily range): BP systolic 91–130; BP diastolic 56–84
[2017-06-02 12:18] LABS: HEMATOCRIT 35.3 % (38.0-50.0); HEMOGLOBIN 12.1 G/DL (12.5-16.6); MCH 30.6 PG (29.0-34.0); MCHC 34.3 G/DL (30.0-36.0); MCV 89.4 FL (86-99); PLATELET COUNT 344 K/uL (156-360); RBC DIS.WIDTH-CV 14.6 % (11.8-14.6); RBC DIS.WIDTH-SD 47.1 % (39-53); RED BLOOD COUNT 3.95 M/uL (4.00-5.50); WHITE BLOOD COUNT 9.7 K/uL (4.1-10.2)
[2017-06-02 12:27] LABS: CHLORIDE 107 mEq/L (99-109); POTASSIUM 4.5 mEq/L (3.7-5.4); SODIUM 136 mEq/L (136-147)
[2017-06-02 12:29] LABS: GLUCOSE 290 mg/dL (70-99)
[2017-06-02 12:33] LABS: CREATININE 0.8 mg/dL (0.6-1.3); GFR ESTIMATE (CALCULATED) > 59 mL/min/ (58.99-99999)
[2017-06-02 12:34] LABS: UREA NITROGEN (BUN) 16 mg/dL (9-23)
[2017-06-02 12:40] LABS: TROP-I INTERPRETATION NEGATIVE; TROPONIN-I < 0.01 ng/mL (0.0-0.30)
[2017-06-02 12:42] LABS: APPEARANCE CLEAR ((CLEAR)); BILIRUBIN NEGATIVE; BLOOD NEGATIVE; COLOR STRAW ((YELLOW)); GLUCOSE (STRIP) >=500; KETONES NEGATIVE; LEUKOCYTES NEGATIVE; NITRITE NEGATIVE; PROTEIN (STRIP) 30; SPECIFIC GRAVITY 1.011 (1.000-1.030); UCUL ADDED? NO; UROBILINOGEN 0.2 MG/DL (0.2-1.0)
[2017-06-02 12:53] LABS: AMPHETAMINE NEGATIVE (500 ng/mL); BARBITURATES NEGATIVE (200 ng/mL); BENZODIAZEPINES PRESUMPTIVE POSITIVE (150 ng/mL); BUPRENORPHINE NEGATIVE (10 ng/mL); COCAINE NEGATIVE (150 ng/mL); METHADONE NEGATIVE (200 ng/mL); METHAMPHETAMINE NEGATIVE (500 ng/mL); OPIATES (MORPHINE) NEGATIVE (100 ng/mL); OXYCODONE NEGATIVE (100 ng/mL); PHENCYCLIDINE NEGATIVE (25 ng/mL); PROPOXYPHENE NEGATIVE (300 ng/mL); THC CANNABINOIDS NEGATIVE (50 ng/mL); TRICYCLIC ANTIDEPRESSANTS NEGATIVE (300 ng/mL)
[2017-06-02 13:33] LABS: BASE EXCESS -7.5 mEq/L (-3 to +3); BICARBONATE 18.8 mEq/L (22-26); CARBOXY HGB 0.8 % (0-5); METHEMOGLOBIN 1.2 % (0-1.5)
[2017-06-02 13:34] LABS: COMMENTS - BLOOD GASES A+C+; PCO2 40 mm Hg (35-45); PO2 540 mm Hg (80-100); SITE RR; pH 7.28 (7.35-7.45)
[2017-06-02 13:35] LABS: DEVICE 980 PB; FI02 100 %; MECHANICAL RATE 16 resp/min; MODE AC; O2 FLOW 50 L/MIN; PEEP 5 CM/H20; TIDAL VOLUME 450 ML; TOTAL RESP RATE 16 resp/min
[2017-06-02 14:01] LABS: ACETAMINOPHEN (TYLENOL) < 10 mcg/mL (10-30); SALICYLATE < 5.0 MG/DL (15-30)
[2017-06-02 14:26] LABS: BENZODIAZEPINES, URINE SCREEN POSITIVE (200 ng/mL)
[2017-06-02] MEDS ORDERED: LEVEMIR100 UNIT/2 SC (15:34)
[2017-06-02] MEDS ORDERED: LIPITOR80 MG PO (15:34)
[2017-06-02] MEDS ORDERED: LYRICA100 MG PO (15:35)
[2017-06-02] MEDS ORDERED: CYMBALTA30 MG PO (15:35)
[2017-06-02] MEDS ORDERED: ENDOCET 5-3251 EACH PO (15:36)
[2017-06-02] MEDS ORDERED: GLUCAGON1 MG IM (15:37)
[2017-06-02] MEDS ORDERED: DOXYCYCLINE HY100 MG PO (15:39)
[2017-06-02 20:59] LABS: BASE EXCESS -1.7 mEq/L (-3 to +3); BICARBONATE 21.1 mEq/L (22-26); CARBOXY HGB 0.9 % (0-5); METHEMOGLOBIN 1.6 % (0-1.5); PCO2 29 mm Hg (35-45); PO2 244 mm Hg (80-100); pH 7.47 (7.35-7.45)
[2017-06-02 21:00] LABS: COMMENTS - BLOOD GASES C; DEVICE VENT; FI02 50 %; MECHANICAL RATE 5 resp/min; MODE SIMV; PEEP 5 CM/H20; PRES. SUPPORT 12 CM/H2O; SITE RB; TIDAL VOLUME 440 ML; TOTAL RESP RATE 17 resp/min
[2017-06-03] VITALS (22 sets, daily range): BP systolic 82–142; BP diastolic 52–97
[2017-06-03 06:38] LABS: BASE EXCESS -3.2 mEq/L (-3 to +3); BICARBONATE 20.9 mEq/L (22-26); CARBOXY HGB 1.2 % (0-5); COMMENTS - BLOOD GASES C; DEVICE VENT; FI02 30 %; METHEMOGLOBIN 1.6 % (0-1.5); MODE SPONT; PCO2 33 mm Hg (35-45); PO2 137 mm Hg (80-100); SITE LB; TOTAL RESP RATE 15 resp/min; pH 7.41 (7.35-7.45)
[2017-06-03 06:39] LABS: PEEP 5 CM/H20; PRES. SUPPORT 10 CM/H2O
[2017-06-03 14:12] LABS: BASOPHIL COUNT 0.1 K/uL (0-0.1); EOSINOPHIL (%) 0.2 % (0-5); HEMATOCRIT 33.7 % (38.0-50.0); IMMATURE GRANULOCYTE (%) 0.7 % (0.0-0.7); LYMPHOCYTE (%) 30.4 % (15-42); LYMPHOCYTE COUNT 2.5 K/uL (1.0-2.8); MCH 29.9 PG (29.0-34.0); MCHC 32.6 G/DL (30.0-36.0); MCV 91.6 FL (86-99); MONOCYTE (%) 7.4 % (3-12); MONOCYTE COUNT 0.6 K/uL (0-0.8); NEUTROPHIL (%) 60.3 % (45-76); NEUTROPHIL COUNT 4.9 K/uL (1.8-6.4); PLATELET COUNT 351 K/uL (156-360); RBC DIS.WIDTH-CV 15.3 % (11.8-14.6); RBC DIS.WIDTH-SD 51.8 % (39-53); RED BLOOD COUNT 3.68 M/uL (4.00-5.50); WHITE BLOOD COUNT 8.2 K/uL (4.1-10.2)
[2017-06-03 14:30] LABS: PTT 33.4 SEC (25-37)
[2017-06-03 15:11] LABS: PROLACTIN 15.4 NG/ML
[2017-06-03 15:12] LABS: ALBUMIN 2.8 G/DL (3.2-4.8); ALKALINE PHOSPHATASE 124 IU/L (3-129); ALT (GPT) 36 IU/L (3-49); AST (GOT) 31 IU/L (2-34); CHLORIDE 109 MEQ/L (99-109); CREATININE 0.9 MG/DL (0.6-1.3); DIRECT BILIRUBIN 0.1 mg/dL (0.0-0.3); GFR ESTIMATE (CALCULATED) > 59 mL/min/ (58.99-99999); GLUCOSE 168 mg/dL (70-99); MAGNESIUM 2.1 mg/dl (1.3-2.7); PHOSPHORUS 2.3 mg/dL (2.5-4.9); POTASSIUM 3.8 MEQ/L (3.7-5.4); SODIUM 139 MEQ/L (136-147); TOTAL BILIRUBIN 0.5 MG/DL (0.0-1.0); TOTAL PROTEIN 5.7 G/DL (6.4-8.3); UREA NITROGEN (BUN) 11 mg/dL (9-23)
[2017-06-03 16:08] LABS: HIGH-SENS C-REACTIVE PROTEIN > 8.00 MG/DL (0.02-0.20)
[2017-06-03 20:13] LABS: CHLORIDE 111 MEQ/L (99-109); CREATININE 0.7 MG/DL (0.6-1.3); GFR ESTIMATE (CALCULATED) > 59 mL/min/ (58.99-99999); GLUCOSE 189 mg/dL (70-99); MAGNESIUM 1.8 mg/dl (1.3-2.7); POTASSIUM 3.8 MEQ/L (3.7-5.4); SODIUM 140 MEQ/L (136-147); UREA NITROGEN (BUN) 9 mg/dL (9-23)
[2017-06-03 23:35] LABS: THYROTROPIN (TSH) 1.3 MIU/L (0.4-5.5)
[2017-06-04] VITALS (22 sets, daily range): BP systolic 115–158; BP diastolic 71–94
[2017-06-04 07:13] LABS: BASOPHIL (%) 0.8 % (0-1); BASOPHIL COUNT 0.1 K/uL (0-0.1); EOSINOPHIL (%) 1.2 % (0-5); EOSINOPHIL COUNT 0.1 K/uL (0-0.3); HEMATOCRIT 30.2 % (38.0-50.0); HEMOGLOBIN 9.6 G/DL (12.5-16.6); IMMATURE GRANULOCYTE (%) 0.5 % (0.0-0.7); LYMPHOCYTE (%) 28.9 % (15-42); LYMPHOCYTE COUNT 2.2 K/uL (1.0-2.8); MCH 28.9 PG (29.0-34.0); MCHC 31.8 G/DL (30.0-36.0); MONOCYTE (%) 11.6 % (3-12); MONOCYTE COUNT 0.9 K/uL (0-0.8); NEUTROPHIL COUNT 4.4 K/uL (1.8-6.4); PLATELET COUNT 289 K/uL (156-360); RBC DIS.WIDTH-CV 14.8 % (11.8-14.6); RBC DIS.WIDTH-SD 50.3 % (39-53); RED BLOOD COUNT 3.32 M/uL (4.00-5.50); WHITE BLOOD COUNT 7.7 K/uL (4.1-10.2)
[2017-06-04 07:40] LABS: ALBUMIN 2.4 G/DL (3.2-4.8); ALKALINE PHOSPHATASE 112 IU/L (3-129); ALT (GPT) 31 IU/L (3-49); AST (GOT) 28 IU/L (2-34); CHLORIDE 108 MEQ/L (99-109); CREATININE 0.6 MG/DL (0.6-1.3); GFR ESTIMATE (CALCULATED) > 59 mL/min/ (58.99-99999); GLUCOSE 161 mg/dL (70-99); MAGNESIUM 1.8 mg/dl (1.3-2.7); PHOSPHORUS 2.4 mg/dL (2.5-4.9); POTASSIUM 3.6 MEQ/L (3.7-5.4); SODIUM 138 MEQ/L (136-147); TOTAL BILIRUBIN 0.5 MG/DL (0.0-1.0); TOTAL PROTEIN 5.3 G/DL (6.4-8.3); UREA NITROGEN (BUN) 6 mg/dL (9-23)
[2017-06-04 15:06] LABS: APPEARANCE CLEAR/COLORLESS; CSF TUBE NUMBER TUBE #4; RED CELL COUNT 0 /MM^3 (0-1)
[2017-06-04 15:07] LABS: CSF EOSINOPHILS 0 % (0-25); MONONUCLEAR WBC'S 100 % (50-90); POLYNUCLEAR WBC'S 0 % (0-3); WHITE CELL COUNT 1 /MM^3 (0-5)
[2017-06-04 15:22] LABS: CSF PROTEIN 34 mg/dL (15-45)
[2017-06-04 15:28] LABS: GLUCOSE, CSF 86 mg/dL (40-80)
[2017-06-04 18:05] LABS: GLUCOSE 19 mg/dL (70-99)
[2017-06-05] VITALS (22 sets, daily range): BP systolic 97–142; BP diastolic 58–86
[2017-06-05 06:29] LABS: BASOPHIL (%) 0.6 % (0-1); EOSINOPHIL COUNT 0.1 K/uL (0-0.3); HEMATOCRIT 28.7 % (38.0-50.0); HEMOGLOBIN 9.5 G/DL (12.5-16.6); IMMATURE GRANULOCYTE (%) 0.3 % (0.0-0.7); LYMPHOCYTE (%) 40.7 % (15-42); LYMPHOCYTE COUNT 2.9 K/uL (1.0-2.8); MCH 29.9 PG (29.0-34.0); MCHC 33.1 G/DL (30.0-36.0); MCV 90.3 FL (86-99); MONOCYTE (%) 10.7 % (3-12); MONOCYTE COUNT 0.8 K/uL (0-0.8); NEUTROPHIL (%) 45.7 % (45-76); NEUTROPHIL COUNT 3.3 K/uL (1.8-6.4); PLATELET COUNT 292 K/uL (156-360); RBC DIS.WIDTH-CV 14.5 % (11.8-14.6); RBC DIS.WIDTH-SD 47.8 % (39-53); RED BLOOD COUNT 3.18 M/uL (4.00-5.50); WHITE BLOOD COUNT 7.2 K/uL (4.1-10.2)
[2017-06-05 06:51] LABS: ALBUMIN 2.2 G/DL (3.2-4.8); ALKALINE PHOSPHATASE 105 IU/L (3-129); ALT (GPT) 26 IU/L (3-49); AST (GOT) 24 IU/L (2-34); CHLORIDE 108 MEQ/L (99-109); CREATININE 0.5 MG/DL (0.6-1.3); GFR ESTIMATE (CALCULATED) > 59 mL/min/ (58.99-99999); MAGNESIUM 1.7 mg/dl (1.3-2.7); PHOSPHORUS 2.8 mg/dL (2.5-4.9); POTASSIUM 3.5 MEQ/L (3.7-5.4); SODIUM 139 MEQ/L (136-147); TOTAL PROTEIN 5.1 G/DL (6.4-8.3); UREA NITROGEN (BUN) 3 mg/dL (9-23)
[2017-06-05 06:53] LABS: GLUCOSE 248 mg/dL (70-99); TOTAL BILIRUBIN 0.3 MG/DL (0.0-1.0)
[2017-06-05 09:47] LABS: LYME DISEASE SEROLOGY SCREEN NEGATIVE (NEGATIVE); TREPONEMA ANTIBODY NEGATIVE (NEGATIVE)
[2017-06-05 12:05] LABS: HIGH-SENS C-REACTIVE PROTEIN > 8.00 MG/DL (0.02-0.20)
[2017-06-06] VITALS (20 sets, daily range): BP systolic 121–145; BP diastolic 65–93
[2017-06-06 06:18] LABS: BASOPHIL COUNT 0.1 K/uL (0-0.1); EOSINOPHIL (%) 2.8 % (0-5); EOSINOPHIL COUNT 0.1 K/uL (0-0.3); HEMATOCRIT 27.2 % (38.0-50.0); IMMATURE GRANULOCYTE (%) 0.4 % (0.0-0.7); LYMPHOCYTE (%) 48.1 % (15-42); LYMPHOCYTE COUNT 2.5 K/uL (1.0-2.8); MCH 29.8 PG (29.0-34.0); MCHC 33.1 G/DL (30.0-36.0); MCV 90.1 FL (86-99); MONOCYTE (%) 11.4 % (3-12); MONOCYTE COUNT 0.6 K/uL (0-0.8); NEUTROPHIL (%) 36.3 % (45-76); NEUTROPHIL COUNT 1.9 K/uL (1.8-6.4); PLATELET COUNT 293 K/uL (156-360); RBC DIS.WIDTH-CV 14.5 % (11.8-14.6); RBC DIS.WIDTH-SD 47.8 % (39-53); RED BLOOD COUNT 3.02 M/uL (4.00-5.50); WHITE BLOOD COUNT 5.1 K/uL (4.1-10.2)
[2017-06-06 07:31] LABS: ALBUMIN 2.1 G/DL (3.2-4.8); ALKALINE PHOSPHATASE 106 IU/L (3-129); ALT (GPT) 21 IU/L (3-49); AST (GOT) 18 IU/L (2-34); CHLORIDE 103 MEQ/L (99-109); CREATININE 0.5 MG/DL (0.6-1.3); GFR ESTIMATE (CALCULATED) > 59 mL/min/ (58.99-99999); GLUCOSE 278 mg/dL (70-99); MAGNESIUM 1.8 mg/dl (1.3-2.7); PHOSPHORUS 2.6 mg/dL (2.5-4.9); POTASSIUM 3.8 MEQ/L (3.7-5.4); SODIUM 139 MEQ/L (136-147); TOTAL PROTEIN 4.9 G/DL (6.4-8.3); UREA NITROGEN (BUN) 5 mg/dL (9-23)
[2017-06-06 07:35] LABS: TOTAL BILIRUBIN 0.2 MG/DL (0.0-1.0)
[2017-06-06 15:18] LABS: HSV CSF Spec Source CSF (())
[2017-06-07] VITALS (19 sets, daily range): BP systolic 112–164; BP diastolic 65–87
[2017-06-07 07:03] LABS: BASOPHIL (%) 1.1 % (0-1); BASOPHIL COUNT 0.1 K/uL (0-0.1); EOSINOPHIL (%) 2.9 % (0-5); EOSINOPHIL COUNT 0.1 K/uL (0-0.3); HEMOGLOBIN 9.4 G/DL (12.5-16.6); IMMATURE GRANULOCYTE (%) 0.2 % (0.0-0.7); LYMPHOCYTE (%) 44.6 % (15-42); MCH 29.2 PG (29.0-34.0); MCHC 32.4 G/DL (30.0-36.0); MCV 90.1 FL (86-99); MONOCYTE (%) 11.5 % (3-12); MONOCYTE COUNT 0.5 K/uL (0-0.8); NEUTROPHIL (%) 39.7 % (45-76); NEUTROPHIL COUNT 1.8 K/uL (1.8-6.4); PLATELET COUNT 323 K/uL (156-360); RBC DIS.WIDTH-CV 13.9 % (11.8-14.6); RBC DIS.WIDTH-SD 45.9 % (39-53); RED BLOOD COUNT 3.22 M/uL (4.00-5.50); WHITE BLOOD COUNT 4.5 K/uL (4.1-10.2)
[2017-06-07 07:29] LABS: ALBUMIN 2.5 G/DL (3.2-4.8); ALKALINE PHOSPHATASE 99 IU/L (3-129); ALT (GPT) 18 IU/L (3-49); AST (GOT) 15 IU/L (2-34); CHLORIDE 105 MEQ/L (99-109); CREATININE 0.5 MG/DL (0.6-1.3); GFR ESTIMATE (CALCULATED) > 59 mL/min/ (58.99-99999); GLUCOSE 193 mg/dL (70-99); MAGNESIUM 1.9 mg/dl (1.3-2.7); PHOSPHORUS 3.3 mg/dL (2.5-4.9); POTASSIUM 3.7 MEQ/L (3.7-5.4); SODIUM 141 MEQ/L (136-147); TOTAL PROTEIN 5.1 G/DL (6.4-8.3); UREA NITROGEN (BUN) 6 mg/dL (9-23)
[2017-06-07 07:32] LABS: TOTAL BILIRUBIN 0.3 MG/DL (0.0-1.0)
[2017-06-07 15:44] LABS: HSV-2 IgG Antibody <0.90 Index (<0.90)
[2017-06-08 00:14] VITALS: BP 115/66
[2017-06-08 04:07] VITALS: BP 123/65
[2017-06-08 06:10] LABS: BASOPHIL (%) 1.4 % (0-1); BASOPHIL COUNT 0.1 K/uL (0-0.1); EOSINOPHIL (%) 2.9 % (0-5); EOSINOPHIL COUNT 0.1 K/uL (0-0.3); HEMATOCRIT 30.2 % (38.0-50.0); HEMOGLOBIN 9.7 G/DL (12.5-16.6); IMMATURE GRANULOCYTE (%) 0.5 % (0.0-0.7); LYMPHOCYTE (%) 54.5 % (15-42); LYMPHOCYTE COUNT 2.3 K/uL (1.0-2.8); MCH 28.8 PG (29.0-34.0); MCHC 32.1 G/DL (30.0-36.0); MCV 89.6 FL (86-99); MONOCYTE (%) 7.9 % (3-12); MONOCYTE COUNT 0.3 K/uL (0-0.8); NEUTROPHIL (%) 32.8 % (45-76); NEUTROPHIL COUNT 1.4 K/uL (1.8-6.4); PLATELET COUNT 352 K/uL (156-360); RBC DIS.WIDTH-CV 13.9 % (11.8-14.6); RBC DIS.WIDTH-SD 45.2 % (39-53); RED BLOOD COUNT 3.37 M/uL (4.00-5.50); WHITE BLOOD COUNT 4.2 K/uL (4.1-10.2)
[2017-06-08 06:35] LABS: ALBUMIN 2.6 G/DL (3.2-4.8); ALKALINE PHOSPHATASE 93 IU/L (3-129); ALT (GPT) 18 IU/L (3-49); AST (GOT) 17 IU/L (2-34); CHLORIDE 105 MEQ/L (99-109); CREATININE 0.6 MG/DL (0.6-1.3); GFR ESTIMATE (CALCULATED) > 59 mL/min/ (58.99-99999); GLUCOSE 128 mg/dL (70-99); MAGNESIUM 1.8 mg/dl (1.3-2.7); PHOSPHORUS 3.5 mg/dL (2.5-4.9); POTASSIUM 3.7 MEQ/L (3.7-5.4); SODIUM 141 MEQ/L (136-147); TOTAL BILIRUBIN 0.2 MG/DL (0.0-1.0); TOTAL PROTEIN 5.2 G/DL (6.4-8.3); UREA NITROGEN (BUN) 8 mg/dL (9-23)
[2017-06-08 08:13] VITALS: BP 133/83
[2017-06-08 12:29] VITALS: BP 131/76
[2017-06-08 17:44] VITALS: BP 118/69
[2017-06-08 19:57] VITALS: BP 145/79
[2017-06-09 00:59] VITALS: BP 132/74
[2017-06-09 04:01] VITALS: BP 135/78
[2017-06-09 06:19] LABS: BASOPHIL (%) 1.3 % (0-1); BASOPHIL COUNT 0.1 K/uL (0-0.1); EOSINOPHIL COUNT 0.1 K/uL (0-0.3); HEMATOCRIT 31.7 % (38.0-50.0); HEMOGLOBIN 10.3 G/DL (12.5-16.6); LYMPHOCYTE (%) 59.9 % (15-42); LYMPHOCYTE COUNT 2.7 K/uL (1.0-2.8); MCHC 32.5 G/DL (30.0-36.0); MCV 89.3 FL (86-99); MONOCYTE (%) 9.3 % (3-12); MONOCYTE COUNT 0.4 K/uL (0-0.8); NEUTROPHIL (%) 27.5 % (45-76); NEUTROPHIL COUNT 1.2 K/uL (1.8-6.4); PLATELET COUNT 386 K/uL (156-360); RBC DIS.WIDTH-CV 13.6 % (11.8-14.6); RBC DIS.WIDTH-SD 44.7 % (39-53); RED BLOOD COUNT 3.55 M/uL (4.00-5.50); WHITE BLOOD COUNT 4.5 K/uL (4.1-10.2)
[2017-06-09 07:00] LABS: ALBUMIN 2.9 G/DL (3.2-4.8); ALKALINE PHOSPHATASE 103 IU/L (3-129); ALT (GPT) 21 IU/L (3-49); CHLORIDE 105 MEQ/L (99-109); CREATININE 0.6 MG/DL (0.6-1.3); GFR ESTIMATE (CALCULATED) > 59 mL/min/ (58.99-99999); MAGNESIUM 1.9 mg/dl (1.3-2.7); PHOSPHORUS 3.4 mg/dL (2.5-4.9); POTASSIUM 3.4 MEQ/L (3.7-5.4); SODIUM 142 MEQ/L (136-147); TOTAL BILIRUBIN 0.2 MG/DL (0.0-1.0); UREA NITROGEN (BUN) 5 mg/dL (9-23)
[2017-06-09 07:06] LABS: GLUCOSE 38 mg/dL (70-99)
[2017-06-09 07:07] LABS: AST (GOT) 27 IU/L (2-34)
[2017-06-09 07:47] VITALS: BP 122/70
[2017-06-09 11:35] VITALS: BP 135/80
[2017-06-09] MEDS ORDERED: LEVEMIR100 UNIT/2 SC (13:19)
[2017-06-09 16:39] VITALS: BP 132/80
== END 2017-06-09 17:17 | DRG 100 ==
LOC: EME 11:40 → EDOF 14:03 → 5SOUTH 14:03 → 4WEST 14:03 → ENRESERV 14:04 → EDOF 14:18 → ENRESERV 15:56 → 4WEST 17:01 → ENRESERV 06-07 15:33 → CANRESERV 06-07 19:12 → ENRESERV 06-07 19:23 → 5SOUTH 06-07 20:13
PROVIDERS: Emergency Medicine; Internal Medicine; Internal Medicine Critical Care Medicine
PROC: 0BH17EZ Insertion of Endotracheal Airway into Trachea, Via Natural or Artificial Opening (ICD-10-PCS; 2017-06-02)
PROC: B543ZZA Ultrasonography of Right Jugular Veins, Guidance (ICD-10-PCS; principal; 2017-06-04)
PROC: 009U3ZX Drainage of Spinal Canal, Percutaneous Approach, Diagnostic (ICD-10-PCS; principal; 2017-06-04)
PROC: 5A1945Z Respiratory Ventilation, 24-96 Consecutive Hours (ICD-10-PCS; principal; 2017-06-04)
PROC: 05HM33Z Insertion of Infusion Device into Right Internal Jugular Vein, Percutaneous Approach (ICD-10-PCS; principal; 2017-06-04)
DX: G40.901 Epilepsy, unspecified, not intractable, with status epilepticus (principal); J96.00 Acute respiratory failure, unspecified whether with hypoxia or hypercapnia; G93.40 Encephalopathy, unspecified; J18.9 Pneumonia, unspecified organism; I25.10 Atherosclerotic heart disease of native coronary artery without angina pectoris; I50.9 Heart failure, unspecified; I11.0 Hypertensive heart disease with heart failure; F12.90 Cannabis use, unspecified, uncomplicated; E11.649 Type 2 diabetes mellitus with hypoglycemia without coma; D64.9 Anemia, unspecified; E78.5 Hyperlipidemia, unspecified; I49.3 Ventricular premature depolarization; F32.9 Major depressive disorder, single episode, unspecified; F31.9 Bipolar disorder, unspecified; Z95.5 Presence of coronary angioplasty implant and graft; Z78.1 Physical restraint status; Z79.4 Long term (current) use of insulin; E11.51 Type 2 diabetes mellitus with diabetic peripheral angiopathy without gangrene; E11.10 Type 2 diabetes mellitus with ketoacidosis without coma
CPT/HCPCS: 36600; 70450; 70491; 70551; 71045; 71275; 74177; 80048; 80048 91; 80053; 80178; 80185; 80202; 81003; 82010; 82140; 82248; 82803; 82945; 82948; 83036; 83605; 83735; 83873 90; 84100; 84145 90; 84146; 84157; 84443; 84484; 84999; 85025; 85027; 85610; 85730; 86141; 86592 90; 86618; 86695 90; 86696 90; 86780; 87040; 87070; 87077; 87086; 87205; 87502; 87529 90; 87641; 87801; 87899; 89051; 92610 GN; 93005; 94002; 94003; 94760; 94799; 95819; 97530 GO; 97530 GP; 99281; 99285; G0480; J0133; J0290; J0696; J1650; J1815; J1940; J1953; J2060; J2270; J2543; J2704; J3010; J3370; J3480; J7030; J7050; P9047; S0030

== ENCOUNTER 2017-06-18 23:43 | Emergency (ER) | payer OTHER ==
[~2017-06-18] VITALS: Ht 175.3 cm; Wt 52.6 kg
[~2017-06-18 23:43] MED LIST changes: +DOXYCYCLINE HY100 MG PO; +ENDOCET 5-3251 EACH PO
[2017-06-19] MEDS ORDERED: PREVNAR 13 SYR0.5 ML IM (00:14)
[2017-06-19] MEDS ORDERED: COLACE100 MG PO (00:14)
[2017-06-19] MEDS ORDERED: BASAGLAR K100 UNIT/1 SC (00:15)
[2017-06-19] MEDS ORDERED: HUMALOG100 UNIT/2 SC (00:16)
[2017-06-19 00:44] LABS: HEMATOCRIT 42.5 % (38.0-50.0); HEMOGLOBIN 14.4 G/DL (12.5-16.6); MCH 30.2 PG (29.0-34.0); MCHC 33.9 G/DL (30.0-36.0); MCV 89.1 FL (86-99); PLATELET COUNT 390 K/uL (156-360); RBC DIS.WIDTH-CV 13.9 % (11.8-14.6); RBC DIS.WIDTH-SD 45.2 % (39-53); RED BLOOD COUNT 4.77 M/uL (4.00-5.50); WHITE BLOOD COUNT 9.8 K/uL (4.1-10.2)
[2017-06-19 00:53] LABS: ALBUMIN 3.7 g/dL (3.2-4.8); CHLORIDE 103 mEq/L (99-109); SODIUM 134 mEq/L (136-147)
[2017-06-19 00:56] LABS: GLUCOSE 252 mg/dL (70-99); TOTAL PROTEIN 7.8 g/dL (6.4-8.3)
[2017-06-19 00:57] LABS: POTASSIUM 3.4 mEq/L (3.7-5.4)
[2017-06-19 00:58] LABS: TOTAL BILIRUBIN 0.4 mg/dL (0.0-1.0)
[2017-06-19 00:59] LABS: ALKALINE PHOSPHATASE 126 IU/L (3-129); SERUM ETHYL ALCOHOL < 10 mg/dL
[2017-06-19 01:00] LABS: CREATININE 0.9 mg/dL (0.6-1.3); GFR ESTIMATE (CALCULATED) > 59 mL/min/ (58.99-99999)
[2017-06-19 01:01] LABS: AST (GOT) 53 IU/L (2-34); UREA NITROGEN (BUN) 12 mg/dL (9-23)
[2017-06-19 01:02] LABS: ALT (GPT) 26 IU/L (3-49)
[2017-06-19 01:03] LABS: LIPASE 29 U/L (1.0-51.0)
[2017-06-19 01:04] LABS: TROP-I INTERPRETATION NEGATIVE; TROPONIN-I < 0.01 ng/mL (0.0-0.30)
[2017-06-19] MEDS ORDERED: GLUCAGON1 MG IM (01:15)
[2017-06-19 01:46] VITALS: BP 104/77
== END 2017-06-19 01:46 | disposition home or self-care (01) ==
LOC: EME → EDBD 23:43 → EME 23:43
PROVIDERS: Emergency Medicine
DX: E11.649 Type 2 diabetes mellitus with hypoglycemia without coma (principal); Z79.4 Long term (current) use of insulin; I10 Essential (primary) hypertension; I25.10 Atherosclerotic heart disease of native coronary artery without angina pectoris; E78.5 Hyperlipidemia, unspecified; Z95.5 Presence of coronary angioplasty implant and graft; J45.909 Unspecified asthma, uncomplicated; F32.9 Major depressive disorder, single episode, unspecified; K21.9 Gastro-esophageal reflux disease without esophagitis; F41.9 Anxiety disorder, unspecified
CPT/HCPCS: 71045; 80053; 83690; 84484; 85027; 93005; 99281; 99284; G0480

== ENCOUNTER 2017-07-21 18:44 | Observation (INO) | payer OTHER ==
[~2017-07-21] VITALS: Ht 175.3 cm; Wt 64.2 kg
[~2017-07-21 18:44] MED LIST changes: +BASAGLAR K100 UNIT/1 SC; +COLACE100 MG PO; +HUMALOG100 UNIT/2 SC; +PREVNAR 13 SYR0.5 ML IM
[2017-07-21 19:44] LABS: HEMATOCRIT 34.9 % (38.0-50.0); HEMOGLOBIN 11.6 G/DL (12.5-16.6); MCH 29.1 PG (29.0-34.0); MCHC 33.2 G/DL (30.0-36.0); MCV 87.5 FL (86-99); PLATELET COUNT 322 K/uL (156-360); RBC DIS.WIDTH-CV 12.5 % (11.8-14.6); RBC DIS.WIDTH-SD 40.1 % (39-53); RED BLOOD COUNT 3.99 M/uL (4.00-5.50); WHITE BLOOD COUNT 7.8 K/uL (4.1-10.2)
[2017-07-21 19:55] LABS: CHLORIDE 108 mEq/L (99-109); POTASSIUM 3.5 mEq/L (3.7-5.4); SODIUM 141 mEq/L (136-147)
[2017-07-21 20:01] LABS: CREATININE 0.7 mg/dL (0.6-1.3); GFR ESTIMATE (CALCULATED) > 59 mL/min/ (58.99-99999)
[2017-07-21 20:02] LABS: UREA NITROGEN (BUN) 7 mg/dL (9-23)
[2017-07-21 20:04] LABS: GLUCOSE 42 mg/dL (70-99)
[2017-07-21 20:08] LABS: TROP-I INTERPRETATION NEGATIVE; TROPONIN-I < 0.01 ng/mL (0.0-0.30)
[2017-07-21 20:58] LABS: APPEARANCE CLEAR ((CLEAR)); BILIRUBIN NEGATIVE; BLOOD NEGATIVE; COLOR YELLOW ((YELLOW)); GLUCOSE (STRIP) >=500; KETONES NEGATIVE; LEUKOCYTES NEGATIVE; NITRITE NEGATIVE; PROTEIN (STRIP) NEGATIVE; SPECIFIC GRAVITY 1.013 (1.000-1.030); UCUL ADDED? NO; UROBILINOGEN 0.2 MG/DL (0.2-1.0)
[2017-07-21] MEDS ORDERED: OLANZAPINE10 MG PO (23:17)
[2017-07-21] MEDS ORDERED: TRAZODONE HCL50 MG PO (23:18)
[2017-07-21] MEDS ORDERED: LYRICA100 MG PO (23:18)
[2017-07-21] MEDS ORDERED: DULOXETINE HCL30 MG PO (23:19)
[2017-07-21] MEDS ORDERED: RANITIDINE HCL150 MG PO (23:19)
[2017-07-21] MEDS ORDERED: SANTYL30 GM TP (23:20)
[2017-07-21] MEDS ORDERED: VALIUM10 MG PO (23:21)
[2017-07-21] MEDS ORDERED: NOVOLOG 10100 UNITS/ SC (23:23)
[2017-07-21 23:58] LABS: ALBUMIN 3.6 g/dL (3.2-4.8)
[2017-07-22 00:01] LABS: TOTAL PROTEIN 7.6 g/dL (6.4-8.3)
[2017-07-22 00:03] LABS: TOTAL BILIRUBIN 0.4 mg/dL (0.0-1.0)
[2017-07-22 00:04] LABS: ALKALINE PHOSPHATASE 118 IU/L (3-129)
[2017-07-22 00:06] LABS: AST (GOT) 23 IU/L (2-34)
[2017-07-22 00:07] LABS: ALT (GPT) 27 IU/L (3-49); DIRECT BILIRUBIN 0.2 mg/dL (0.0-0.3)
[2017-07-22 01:58] VITALS: BP 136/87
[2017-07-22 04:01] VITALS: BP 142/97
[2017-07-22 05:55] LABS: HEMOGLOBIN 11.4 G/DL (12.5-16.6); MCH 28.8 PG (29.0-34.0); MCHC 32.6 G/DL (30.0-36.0); MCV 88.4 FL (86-99); PLATELET COUNT 328 K/uL (156-360); RBC DIS.WIDTH-CV 12.7 % (11.8-14.6); RBC DIS.WIDTH-SD 40.9 % (39-53); RED BLOOD COUNT 3.96 M/uL (4.00-5.50); WHITE BLOOD COUNT 5.9 K/uL (4.1-10.2)
[2017-07-22 06:19] LABS: CHLORIDE 109 MEQ/L (99-109); CREATININE 0.6 MG/DL (0.6-1.3); GFR ESTIMATE (CALCULATED) > 59 mL/min/ (58.99-99999); POTASSIUM 3.7 MEQ/L (3.7-5.4); SODIUM 142 MEQ/L (136-147); UREA NITROGEN (BUN) 5 mg/dL (9-23)
[2017-07-22 06:24] LABS: GLUCOSE 154 mg/dL (70-99)
[2017-07-22 07:51] VITALS: BP 128/87
[2017-07-22 12:02] VITALS: BP 149/86
== END 2017-07-22 15:37 | disposition home or self-care (01) ==
LOC: EME 18:44 → EDOF 23:20 → ENRESERV 23:22 → 5SOUTH 07-22 01:06
PROVIDERS: Emergency Medicine; Hospitalist
DX: E10.649 Type 1 diabetes mellitus with hypoglycemia without coma (principal); E10.22 Type 1 diabetes mellitus with diabetic chronic kidney disease; I25.10 Atherosclerotic heart disease of native coronary artery without angina pectoris; Z95.5 Presence of coronary angioplasty implant and graft; F31.9 Bipolar disorder, unspecified; E10.51 Type 1 diabetes mellitus with diabetic peripheral angiopathy without gangrene; E10.42 Type 1 diabetes mellitus with diabetic polyneuropathy; I10 Essential (primary) hypertension; E78.5 Hyperlipidemia, unspecified; Z86.19 Personal history of other infectious and parasitic diseases; L97.529 Non-pressure chronic ulcer of other part of left foot with unspecified severity; Z90.49 Acquired absence of other specified parts of digestive tract; Z89.422 Acquired absence of other left toe(s); G40.909 Epilepsy, unspecified, not intractable, without status epilepticus; E87.6 Hypokalemia; D64.9 Anemia, unspecified; Z91.81 History of falling; Z66 Do not resuscitate
CPT/HCPCS: 70450; 71045; 73720; 80048; 80076; 81003; 82948; 84484; 85027; 93005; 99281; 99285; G0378; J1650

== ENCOUNTER 2017-07-23 18:05 | Emergency (ER) | payer OTHER ==
[~2017-07-23] VITALS: Ht 175.3 cm; Wt 66.1 kg
[~2017-07-23 18:05] MED LIST changes: +RANITIDINE HCL150 MG PO; +SANTYL30 GM TP
[2017-07-23 19:26] VITALS: BP 142/86
== END 2017-07-23 19:27 | disposition left against medical advice (07) ==
LOC: EME 18:05
DX: J18.9 Pneumonia, unspecified organism (principal); R07.9 Chest pain, unspecified; I10 Essential (primary) hypertension; E78.5 Hyperlipidemia, unspecified; E11.9 Type 2 diabetes mellitus without complications; Z79.4 Long term (current) use of insulin; F41.9 Anxiety disorder, unspecified; J45.909 Unspecified asthma, uncomplicated; F32.9 Major depressive disorder, single episode, unspecified; I25.10 Atherosclerotic heart disease of native coronary artery without angina pectoris; Z95.5 Presence of coronary angioplasty implant and graft; K21.9 Gastro-esophageal reflux disease without esophagitis
CPT/HCPCS: 71046; 80048; 84484; 85027; 93005; 99281; 99283

== ENCOUNTER 2017-08-01 11:59 | Emergency (ER) | payer OTHER ==
[~2017-08-01] VITALS: Ht 175.3 cm; Wt 64.8 kg
[2017-08-01 12:38] LABS: HEMATOCRIT 33.2 % (38.0-50.0); MCH 28.7 PG (29.0-34.0); MCHC 33.1 G/DL (30.0-36.0); MCV 86.7 FL (86-99); RBC DIS.WIDTH-CV 12.7 % (11.8-14.6); RBC DIS.WIDTH-SD 40.1 % (39-53); RED BLOOD COUNT 3.83 M/uL (4.00-5.50); WHITE BLOOD COUNT 11.2 K/uL (4.1-10.2)
[2017-08-01 12:39] LABS: PLATELET COUNT 816 K/uL (156-360)
[2017-08-01 12:44] LABS: CARBON DIOXIDE (BICARBONATE) 27.3 MEQ/L (20-31)
[2017-08-01 12:44] LABS: CHLORIDE 98 mEq/L (99-109); SODIUM 131 mEq/L (136-147)
[2017-08-01 12:50] LABS: CREATININE 0.9 mg/dL (0.6-1.3); GFR ESTIMATE (CALCULATED) > 59 mL/min/ (58.99-99999)
[2017-08-01 12:51] LABS: UREA NITROGEN (BUN) 10 mg/dL (9-23)
[2017-08-01 12:52] LABS: GLUCOSE 525 mg/dL (70-99); POTASSIUM 6.1 mEq/L (3.7-5.4)
[2017-08-01] MEDS ORDERED: KEFLEX500 MG PO (14:47)
[2017-08-01 14:53] VITALS: BP 115/75
== END 2017-08-01 14:54 | disposition home or self-care (01) ==
LOC: EME 11:59
PROVIDERS: Emergency Medicine
DX: M25.571 Pain in right ankle and joints of right foot (principal); L03.115 Cellulitis of right lower limb; E11.65 Type 2 diabetes mellitus with hyperglycemia; Z79.4 Long term (current) use of insulin; Z79.82 Long term (current) use of aspirin
CPT/HCPCS: 73610; 80048; 82010; 82803; 82948; 85027; 99281; 99283

== ENCOUNTER 2017-08-06 13:32 | Emergency (ER) | payer OTHER ==
[~2017-08-06] VITALS: Ht 175.3 cm; Wt 62.8 kg
[~2017-08-06 13:32] MED LIST changes: +KEFLEX500 MG PO
[2017-08-06] MEDS ORDERED: BACTRIM,SEPT1 TABLET PO (14:39)
[2017-08-06 15:30] VITALS: BP 118/80
[2017-08-07] MEDS ORDERED: CEPHALEXIN500 MG (19:06)
== END 2017-08-06 15:36 | disposition home or self-care (01) ==
LOC: EME 13:32
DX: L03.116 Cellulitis of left lower limb (principal); E11.621 Type 2 diabetes mellitus with foot ulcer; L97.419 Non-pressure chronic ulcer of right heel and midfoot with unspecified severity; L97.529 Non-pressure chronic ulcer of other part of left foot with unspecified severity; Z79.4 Long term (current) use of insulin; I10 Essential (primary) hypertension; E78.5 Hyperlipidemia, unspecified; I25.10 Atherosclerotic heart disease of native coronary artery without angina pectoris; K21.9 Gastro-esophageal reflux disease without esophagitis; J45.909 Unspecified asthma, uncomplicated; R56.9 Unspecified convulsions; F41.9 Anxiety disorder, unspecified; F32.9 Major depressive disorder, single episode, unspecified; F31.9 Bipolar disorder, unspecified; Z87.442 Personal history of urinary calculi; Z90.49 Acquired absence of other specified parts of digestive tract; Z95.5 Presence of coronary angioplasty implant and graft
CPT/HCPCS: 82948; 99281; 99283

== ENCOUNTER 2017-08-07 16:31 | Emergency (ER) | payer OTHER ==
[~2017-08-07] VITALS: Ht 175.3 cm; Wt 64.2 kg
[2017-08-07 17:52] LABS: BASOPHIL (%) 0.8 % (0-1); BASOPHIL COUNT 0.1 K/uL (0-0.1); EOSINOPHIL (%) 1.7 % (0-5); EOSINOPHIL COUNT 0.2 K/uL (0-0.3); HEMOGLOBIN 9.6 G/DL (12.5-16.6); IMMATURE GRANULOCYTE (%) 0.7 % (0.0-0.7); LYMPHOCYTE (%) 21.8 % (15-42); MCH 28.3 PG (29.0-34.0); MCHC 33.1 G/DL (30.0-36.0); MCV 85.5 FL (86-99); MONOCYTE (%) 7.9 % (3-12); MONOCYTE COUNT 0.7 K/uL (0-0.8); NEUTROPHIL (%) 67.1 % (45-76); NEUTROPHIL COUNT 6.2 K/uL (1.8-6.4); PLATELET COUNT 607 K/uL (156-360); RBC DIS.WIDTH-CV 12.9 % (11.8-14.6); RED BLOOD COUNT 3.39 M/uL (4.00-5.50); WHITE BLOOD COUNT 9.2 K/uL (4.1-10.2)
[2017-08-07 18:04] LABS: ALBUMIN 3.2 g/dL (3.2-4.8); CHLORIDE 102 mEq/L (99-109); SODIUM 135 mEq/L (136-147)
[2017-08-07 18:06] LABS: GLUCOSE 264 mg/dL (70-99); TOTAL PROTEIN 7.8 g/dL (6.4-8.3)
[2017-08-07 18:08] LABS: TOTAL BILIRUBIN 0.2 mg/dL (0.0-1.0)
[2017-08-07 18:10] LABS: ALKALINE PHOSPHATASE 134 IU/L (3-129); CREATININE 0.9 mg/dL (0.6-1.3); GFR ESTIMATE (CALCULATED) > 59 mL/min/ (58.99-99999)
[2017-08-07 18:11] LABS: AST (GOT) 23 IU/L (2-34); UREA NITROGEN (BUN) 8 mg/dL (9-23)
[2017-08-07 18:13] LABS: ALT (GPT) 16 IU/L (3-49)
[2017-08-07] MEDS ORDERED: CEPHALEXIN500 MG (19:06)
[2017-08-07 19:30] VITALS: BP 123/87
== END 2017-08-07 19:32 | disposition home or self-care (01) ==
LOC: EME 16:31
PROVIDERS: Nurse Practitioner Family
DX: E11.621 Type 2 diabetes mellitus with foot ulcer (principal); L97.511 Non-pressure chronic ulcer of other part of right foot limited to breakdown of skin; L89.899 Pressure ulcer of other site, unspecified stage; R50.9 Fever, unspecified; Z86.14 Personal history of Methicillin resistant Staphylococcus aureus infection; Z89.422 Acquired absence of other left toe(s); Z79.4 Long term (current) use of insulin; E78.5 Hyperlipidemia, unspecified; J45.909 Unspecified asthma, uncomplicated; F32.9 Major depressive disorder, single episode, unspecified; I10 Essential (primary) hypertension; K21.9 Gastro-esophageal reflux disease without esophagitis; I25.10 Atherosclerotic heart disease of native coronary artery without angina pectoris; Z95.5 Presence of coronary angioplasty implant and graft; F41.9 Anxiety disorder, unspecified
CPT/HCPCS: 71046; 73630; 80048; 80053; 81003; 82948; 83605; 85025; 87040

== ENCOUNTER 2017-08-08 12:51 | Inpatient (IN) | payer OTHER ==
[~2017-08-08] VITALS: Ht 175.3 cm; Wt 64.5 kg
[~2017-08-08 12:51] MED LIST changes: +CEPHALEXIN500 MG
[2017-08-08 13:29] LABS: APPEARANCE CLEAR ((CLEAR)); BILIRUBIN NEGATIVE; BLOOD NEGATIVE; COLOR COLORLESS ((YELLOW)); GLUCOSE (STRIP) >=500; KETONES NEGATIVE; LEUKOCYTES NEGATIVE; NITRITE NEGATIVE; PROTEIN (STRIP) NEGATIVE; SPECIFIC GRAVITY 1.022 (1.000-1.030); UCUL ADDED? NO; UROBILINOGEN 0.2 MG/DL (0.2-1.0)
[2017-08-08 13:36] LABS: BASOPHIL (%) 0.6 % (0-1); EOSINOPHIL (%) 1.2 % (0-5); EOSINOPHIL COUNT 0.1 K/uL (0-0.3); HEMATOCRIT 30.3 % (38.0-50.0); HEMOGLOBIN 10.1 G/DL (12.5-16.6); IMMATURE GRANULOCYTE (%) 0.8 % (0.0-0.7); LYMPHOCYTE (%) 29.9 % (15-42); MCH 28.1 PG (29.0-34.0); MCHC 33.3 G/DL (30.0-36.0); MCV 84.2 FL (86-99); MONOCYTE (%) 8.9 % (3-12); MONOCYTE COUNT 0.6 K/uL (0-0.8); NEUTROPHIL (%) 58.6 % (45-76); NEUTROPHIL COUNT 3.9 K/uL (1.8-6.4); PLATELET COUNT 577 K/uL (156-360); RBC DIS.WIDTH-CV 12.6 % (11.8-14.6); RBC DIS.WIDTH-SD 38.5 % (39-53); WHITE BLOOD COUNT 6.7 K/uL (4.1-10.2)
[2017-08-08 13:40] LABS: CARBON DIOXIDE (BICARBONATE) 22.7 MEQ/L (20-31)
[2017-08-08 13:44] LABS: ALBUMIN 3.3 g/dL (3.2-4.8); CHLORIDE 100 mEq/L (99-109); SODIUM 133 mEq/L (136-147)
[2017-08-08 13:47] LABS: GLUCOSE 396 mg/dL (70-99)
[2017-08-08 13:50] LABS: ALKALINE PHOSPHATASE 163 IU/L (3-129); CREATININE 1.1 mg/dL (0.6-1.3); GFR ESTIMATE (CALCULATED) > 59 mL/min/ (58.99-99999); POTASSIUM 3.1 mEq/L (3.7-5.4)
[2017-08-08 13:51] LABS: TOTAL BILIRUBIN 0.3 mg/dL (0.0-1.0); UREA NITROGEN (BUN) 8 mg/dL (9-23)
[2017-08-08 13:52] LABS: AST (GOT) 16 IU/L (2-34)
[2017-08-08 13:53] LABS: ALT (GPT) 18 IU/L (3-49)
[2017-08-08 13:54] LABS: LIPASE 11 U/L (1.0-51.0)
[2017-08-08 18:46] LABS: ALBUMIN 3.1 g/dL (3.2-4.8)
[2017-08-08 18:47] LABS: POTASSIUM 3.4 mEq/L (3.7-5.4)
[2017-08-08 18:49] LABS: TOTAL PROTEIN 7.4 g/dL (6.4-8.3)
[2017-08-08 18:52] LABS: ALKALINE PHOSPHATASE 143 IU/L (3-129); GLUCOSE 17 mg/dL (70-99)
[2017-08-08 18:53] LABS: CHLORIDE 111 mEq/L (99-109); CREATININE 0.7 mg/dL (0.6-1.3); GFR ESTIMATE (CALCULATED) > 59 mL/min/ (58.99-99999); SODIUM 142 mEq/L (136-147); TOTAL BILIRUBIN 0.2 mg/dL (0.0-1.0)
[2017-08-08 18:54] LABS: AST (GOT) 16 IU/L (2-34); UREA NITROGEN (BUN) 6 mg/dL (9-23)
[2017-08-08 18:55] LABS: ALT (GPT) 16 IU/L (3-49)
[2017-08-08 20:47] LABS: GLUCOSE 61 mg/dL (70-99)
[2017-08-09 00:44] VITALS: BP 133/65
[2017-08-09 06:53] LABS: ALBUMIN 2.5 G/DL (3.2-4.8); ALKALINE PHOSPHATASE 104 IU/L (3-129); ALT (GPT) 12 IU/L (3-49); AST (GOT) 13 IU/L (2-34); CHLORIDE 111 MEQ/L (99-109); CREATININE 0.6 MG/DL (0.6-1.3); GFR ESTIMATE (CALCULATED) > 59 mL/min/ (58.99-99999); SODIUM 140 MEQ/L (136-147); TOTAL BILIRUBIN 0.2 MG/DL (0.0-1.0); UREA NITROGEN (BUN) 6 mg/dL (9-23)
[2017-08-09 06:55] LABS: GLUCOSE 188 mg/dL (70-99); POTASSIUM 4.2 MEQ/L (3.7-5.4)
[2017-08-09 07:40] VITALS: BP 119/72
[2017-08-09 16:48] VITALS: BP 124/77
[2017-08-10] VITALS: BP 93/62
[2017-08-10 07:26] LABS: ALBUMIN 2.7 G/DL (3.2-4.8); ALKALINE PHOSPHATASE 111 IU/L (3-129); ALT (GPT) 14 IU/L (3-49); AST (GOT) 19 IU/L (2-34); CHLORIDE 104 MEQ/L (99-109); CREATININE 0.6 MG/DL (0.6-1.3); GFR ESTIMATE (CALCULATED) > 59 mL/min/ (58.99-99999); GLUCOSE 175 mg/dL (70-99); POTASSIUM 4.3 MEQ/L (3.7-5.4); SODIUM 138 MEQ/L (136-147); TOTAL BILIRUBIN 0.2 MG/DL (0.0-1.0); TOTAL PROTEIN 6.3 G/DL (6.4-8.3); UREA NITROGEN (BUN) 8 mg/dL (9-23)
[2017-08-10 08:21] VITALS: BP 125/79
[2017-08-10 15:52] VITALS: BP 112/70
[2017-08-10 22:59] VITALS: BP 83/53
[2017-08-10 23:30] VITALS: BP 110/64
[2017-08-11 07:15] LABS: ALBUMIN 2.6 G/DL (3.2-4.8); ALKALINE PHOSPHATASE 104 IU/L (3-129); ALT (GPT) 11 IU/L (3-49); AST (GOT) 14 IU/L (2-34); CHLORIDE 105 MEQ/L (99-109); CREATININE 0.6 MG/DL (0.6-1.3); GFR ESTIMATE (CALCULATED) > 59 mL/min/ (58.99-99999); GLUCOSE 144 mg/dL (70-99); POTASSIUM 4.3 MEQ/L (3.7-5.4); SODIUM 139 MEQ/L (136-147); TOTAL BILIRUBIN 0.2 MG/DL (0.0-1.0); TOTAL PROTEIN 6.2 G/DL (6.4-8.3); UREA NITROGEN (BUN) 9 mg/dL (9-23)
[2017-08-11 07:22] VITALS: BP 111/72
[2017-08-11 15:30] VITALS: BP 113/75
== END 2017-08-11 21:00 | disposition home or self-care (01) | DRG 637 ==
LOC: EME 12:51 → EDOF 20:15 → 5EAST 20:15 → ENRESERV 20:17 → 5EAST 08-09 00:25
PROVIDERS: Emergency Medicine; Internal Medicine
DX: E10.649 Type 1 diabetes mellitus with hypoglycemia without coma (principal); J18.9 Pneumonia, unspecified organism; E10.65 Type 1 diabetes mellitus with hyperglycemia; G93.1 Anoxic brain damage, not elsewhere classified; F01.50 Vascular dementia, unspecified severity, without behavioral disturbance, psychotic disturbance, mood disturbance, and anxiety; Z66 Do not resuscitate; F31.9 Bipolar disorder, unspecified; K21.9 Gastro-esophageal reflux disease without esophagitis; J45.909 Unspecified asthma, uncomplicated; E78.5 Hyperlipidemia, unspecified; F41.9 Anxiety disorder, unspecified; I25.10 Atherosclerotic heart disease of native coronary artery without angina pectoris; E10.42 Type 1 diabetes mellitus with diabetic polyneuropathy; E10.51 Type 1 diabetes mellitus with diabetic peripheral angiopathy without gangrene; I50.9 Heart failure, unspecified; I11.0 Hypertensive heart disease with heart failure; L89.610 Pressure ulcer of right heel, unstageable; E10.621 Type 1 diabetes mellitus with foot ulcer; L97.529 Non-pressure chronic ulcer of other part of left foot with unspecified severity; Z79.4 Long term (current) use of insulin; Z95.5 Presence of coronary angioplasty implant and graft; Z91.19 Patient's noncompliance with other medical treatment and regimen; Z79.82 Long term (current) use of aspirin
CPT/HCPCS: 70450; 71045; 80053; 81003; 82803; 82948; 83605; 83690; 84999; 85025; 87040; 93005; 99281; 99285; J0692; J1650; J1815; J3370; J7030; J7050

== ENCOUNTER 2017-08-20 10:48 | Inpatient (IN) | payer OTHER ==
[~2017-08-20] VITALS: Ht 175.3 cm; Wt 62.4 kg
[2017-08-20 14:08] LABS: HEMOGLOBIN 8.6 G/DL (12.5-16.6); MCH 27.7 PG (29.0-34.0); MCHC 33.1 G/DL (30.0-36.0); MCV 83.6 FL (86-99); PLATELET COUNT 564 K/uL (156-360); RBC DIS.WIDTH-CV 13.7 % (11.8-14.6); RBC DIS.WIDTH-SD 42.3 % (39-53); RED BLOOD COUNT 3.11 M/uL (4.00-5.50); WHITE BLOOD COUNT 10.6 K/uL (4.1-10.2)
[2017-08-20 14:18] LABS: CHLORIDE 102 mEq/L (99-109); POTASSIUM 3.8 mEq/L (3.7-5.4)
[2017-08-20 14:19] LABS: SODIUM 136 mEq/L (136-147)
[2017-08-20 14:20] LABS: GLUCOSE 145 mg/dL (70-99)
[2017-08-20 14:24] LABS: CREATININE 0.7 mg/dL (0.6-1.3); GFR ESTIMATE (CALCULATED) > 59 mL/min/ (58.99-99999)
[2017-08-20 14:25] LABS: UREA NITROGEN (BUN) 6 mg/dL (9-23)
[2017-08-20 14:28] LABS: TROP-I INTERPRETATION NEGATIVE; TROPONIN-I < 0.01 ng/mL (0.0-0.30)
[2017-08-20] MEDS ORDERED: SILVADENE20 GM TP (15:33)
[2017-08-20] MEDS ORDERED: LORAZEPAM0.5 MG PO (15:34)
[2017-08-20] MEDS ORDERED: STOOL SOFTENER100 M1 PO (15:35)
[2017-08-20 18:27] VITALS: BP 128/82
[2017-08-20 19:52] VITALS: BP 129/68
[2017-08-20 23:47] VITALS: BP 145/84
[2017-08-21 04:00] VITALS: BP 115/88
[2017-08-21 07:59] LABS: BASOPHIL (%) 0.9 % (0-1); BASOPHIL COUNT 0.1 K/uL (0-0.1); EOSINOPHIL (%) 2.9 % (0-5); EOSINOPHIL COUNT 0.3 K/uL (0-0.3); HEMATOCRIT 29.2 % (38.0-50.0); HEMOGLOBIN 9.1 G/DL (12.5-16.6); IMMATURE GRANULOCYTE (%) 0.3 % (0.0-0.7); LYMPHOCYTE (%) 22.1 % (15-42); MCH 26.7 PG (29.0-34.0); MCHC 31.2 G/DL (30.0-36.0); MCV 85.6 FL (86-99); MONOCYTE (%) 10.3 % (3-12); NEUTROPHIL (%) 63.5 % (45-76); NEUTROPHIL COUNT 5.8 K/uL (1.8-6.4); PLATELET COUNT 572 K/uL (156-360); RBC DIS.WIDTH-CV 14.1 % (11.8-14.6); RBC DIS.WIDTH-SD 43.9 % (39-53); RED BLOOD COUNT 3.41 M/uL (4.00-5.50); WHITE BLOOD COUNT 9.2 K/uL (4.1-10.2)
[2017-08-21 08:22] LABS: CHLORIDE 109 MEQ/L (99-109); CREATININE 0.6 MG/DL (0.6-1.3); GFR ESTIMATE (CALCULATED) > 59 mL/min/ (58.99-99999); GLUCOSE 158 mg/dL (70-99); SODIUM 141 MEQ/L (136-147); UREA NITROGEN (BUN) 4 mg/dL (9-23)
[2017-08-21 08:36] VITALS: BP 121/68
[2017-08-21 08:42] VITALS: BP 121/68
[2017-08-21 18:09] VITALS: BP 126/54
[2017-08-22 00:18] VITALS: BP 146/72
[2017-08-22 07:50] VITALS: BP 132/85
[2017-08-22 08:50] LABS: HEMATOCRIT 31.7 % (38.0-50.0); HEMOGLOBIN 9.9 G/DL (12.5-16.6); MCH 26.4 PG (29.0-34.0); MCHC 31.2 G/DL (30.0-36.0); MCV 84.5 FL (86-99); PLATELET COUNT 616 K/uL (156-360); RBC DIS.WIDTH-CV 14.1 % (11.8-14.6); RBC DIS.WIDTH-SD 43.8 % (39-53); RED BLOOD COUNT 3.75 M/uL (4.00-5.50)
[2017-08-22 09:07] LABS: ALBUMIN 2.4 G/DL (3.2-4.8); CHLORIDE 107 MEQ/L (99-109); POTASSIUM 4.6 MEQ/L (3.7-5.4); SODIUM 140 MEQ/L (136-147); TOTAL BILIRUBIN 0.3 MG/DL (0.0-1.0)
[2017-08-22 09:17] LABS: ALKALINE PHOSPHATASE 116 IU/L (3-129); ALT (GPT) 9 IU/L (3-49); AST (GOT) 14 IU/L (2-34); CREATININE 0.6 MG/DL (0.6-1.3); GFR ESTIMATE (CALCULATED) > 59 mL/min/ (58.99-99999); GLUCOSE 98 mg/dL (70-99); TOTAL PROTEIN 5.9 G/DL (6.4-8.3); UREA NITROGEN (BUN) 4 mg/dL (9-23)
[2017-08-22 12:06] VITALS: BP 108/71
[2017-08-22 15:43] VITALS: BP 116/75
[2017-08-22 19:46] VITALS: BP 142/78
[2017-08-22 23:39] VITALS: BP 122/68
[2017-08-23 06:19] LABS: HEMATOCRIT 26.7 % (38.0-50.0); HEMOGLOBIN 8.4 G/DL (12.5-16.6); MCH 26.8 PG (29.0-34.0); MCHC 31.5 G/DL (30.0-36.0); MCV 85.3 FL (86-99); PLATELET COUNT 570 K/uL (156-360); RBC DIS.WIDTH-CV 14.4 % (11.8-14.6); RBC DIS.WIDTH-SD 44.8 % (39-53); RED BLOOD COUNT 3.13 M/uL (4.00-5.50); WHITE BLOOD COUNT 7.7 K/uL (4.1-10.2)
[2017-08-23 06:55] LABS: ALBUMIN 2.3 G/DL (3.2-4.8); ALKALINE PHOSPHATASE 97 IU/L (3-129); ALT (GPT) 8 IU/L (3-49); AST (GOT) 13 IU/L (2-34); CHLORIDE 105 MEQ/L (99-109); CREATININE 0.6 MG/DL (0.6-1.3); GFR ESTIMATE (CALCULATED) > 59 mL/min/ (58.99-99999); POTASSIUM 4.1 MEQ/L (3.7-5.4); SODIUM 140 MEQ/L (136-147); TOTAL PROTEIN 5.3 G/DL (6.4-8.3); UREA NITROGEN (BUN) 5 mg/dL (9-23)
[2017-08-23 06:59] LABS: GLUCOSE 224 mg/dL (70-99); TOTAL BILIRUBIN 0.2 MG/DL (0.0-1.0)
[2017-08-23 08:32] VITALS: BP 127/77
[2017-08-23 09:05] LABS: HEMOGLOBIN A1c (GLYCOHEMOGLOB) 10.3 % (Below 5.7)
[2017-08-23 11:15] VITALS: BP 124/72
[2017-08-23 15:28] VITALS: BP 112/71
[2017-08-23 20:13] VITALS: BP 125/78
[2017-08-24 00:09] VITALS: BP 135/77
[2017-08-24 04:43] VITALS: BP 128/72
[2017-08-24 07:00] LABS: HEMATOCRIT 26.7 % (38.0-50.0); HEMOGLOBIN 8.3 G/DL (12.5-16.6); MCH 26.3 PG (29.0-34.0); MCHC 31.1 G/DL (30.0-36.0); MCV 84.8 FL (86-99); PLATELET COUNT 612 K/uL (156-360); RBC DIS.WIDTH-CV 14.3 % (11.8-14.6); RBC DIS.WIDTH-SD 44.3 % (39-53); RED BLOOD COUNT 3.15 M/uL (4.00-5.50); WHITE BLOOD COUNT 8.3 K/uL (4.1-10.2)
[2017-08-24 07:26] LABS: ALBUMIN 2.4 G/DL (3.2-4.8); ALKALINE PHOSPHATASE 96 IU/L (3-129); ALT (GPT) 9 IU/L (3-49); AST (GOT) 13 IU/L (2-34); CHLORIDE 105 MEQ/L (99-109); CREATININE 0.6 MG/DL (0.6-1.3); GFR ESTIMATE (CALCULATED) > 59 mL/min/ (58.99-99999); GLUCOSE 274 mg/dL (70-99); POTASSIUM 4.1 MEQ/L (3.7-5.4); SODIUM 138 MEQ/L (136-147); TOTAL BILIRUBIN 0.2 MG/DL (0.0-1.0); TOTAL PROTEIN 5.7 G/DL (6.4-8.3); UREA NITROGEN (BUN) 6 mg/dL (9-23)
[2017-08-24 12:23] VITALS: BP 133/82
[2017-08-24 16:30] VITALS: BP 133/85
[2017-08-24 19:25] VITALS: BP 138/74
[2017-08-25] VITALS (9 sets, daily range): BP systolic 124–160; BP diastolic 62–93
[2017-08-25 07:09] LABS: HEMATOCRIT 27.7 % (38.0-50.0); HEMOGLOBIN 8.6 G/DL (12.5-16.6); MCH 26.5 PG (29.0-34.0); MCV 85.5 FL (86-99); PLATELET COUNT 615 K/uL (156-360); RBC DIS.WIDTH-SD 43.8 % (39-53); RED BLOOD COUNT 3.24 M/uL (4.00-5.50); WHITE BLOOD COUNT 5.9 K/uL (4.1-10.2)
[2017-08-25 07:26] LABS: ALBUMIN 2.5 G/DL (3.2-4.8); ALKALINE PHOSPHATASE 95 IU/L (3-129); ALT (GPT) 10 IU/L (3-49); AST (GOT) 14 IU/L (2-34); CHLORIDE 107 MEQ/L (99-109); CREATININE 0.5 MG/DL (0.6-1.3); GFR ESTIMATE (CALCULATED) > 59 mL/min/ (58.99-99999); GLUCOSE 250 mg/dL (70-99); POTASSIUM 4.2 MEQ/L (3.7-5.4); SODIUM 138 MEQ/L (136-147); TOTAL BILIRUBIN 0.2 MG/DL (0.0-1.0); TOTAL PROTEIN 6.5 G/DL (6.4-8.3); UREA NITROGEN (BUN) 5 mg/dL (9-23)
[2017-08-26 04:10] VITALS: BP 140/74
[2017-08-26 09:32] LABS: HEMATOCRIT 29.7 % (38.0-50.0); HEMOGLOBIN 9.2 G/DL (12.5-16.6); MCH 26.7 PG (29.0-34.0); MCV 86.1 FL (86-99); PLATELET COUNT 569 K/uL (156-360); RBC DIS.WIDTH-CV 14.2 % (11.8-14.6); RBC DIS.WIDTH-SD 44.6 % (39-53); RED BLOOD COUNT 3.45 M/uL (4.00-5.50); WHITE BLOOD COUNT 6.6 K/uL (4.1-10.2)
[2017-08-26 10:00] LABS: ALBUMIN 2.4 G/DL (3.2-4.8); ALKALINE PHOSPHATASE 88 IU/L (3-129); ALT (GPT) 12 IU/L (3-49); AST (GOT) 18 IU/L (2-34); CHLORIDE 105 MEQ/L (99-109); CREATININE 0.6 MG/DL (0.6-1.3); GFR ESTIMATE (CALCULATED) > 59 mL/min/ (58.99-99999); GLUCOSE 328 mg/dL (70-99); POTASSIUM 4.4 MEQ/L (3.7-5.4); SODIUM 137 MEQ/L (136-147); TOTAL BILIRUBIN 0.2 MG/DL (0.0-1.0); TOTAL PROTEIN 6.2 G/DL (6.4-8.3); UREA NITROGEN (BUN) 6 mg/dL (9-23)
[2017-08-26 11:30] VITALS: BP 134/79
[2017-08-26 19:58] VITALS: BP 140/74
[2017-08-26 23:25] VITALS: BP 130/77
[2017-08-27 04:58] VITALS: BP 136/74
[2017-08-27 07:46] VITALS: BP 135/83
[2017-08-27 07:56] LABS: HEMATOCRIT 28.4 % (38.0-50.0); HEMOGLOBIN 8.8 G/DL (12.5-16.6); MCH 26.3 PG (29.0-34.0); MCV 84.8 FL (86-99); PLATELET COUNT 659 K/uL (156-360); RBC DIS.WIDTH-CV 14.4 % (11.8-14.6); RBC DIS.WIDTH-SD 44.3 % (39-53); RED BLOOD COUNT 3.35 M/uL (4.00-5.50); WHITE BLOOD COUNT 8.5 K/uL (4.1-10.2)
[2017-08-27 08:18] LABS: ALBUMIN 2.7 G/DL (3.2-4.8); CHLORIDE 103 MEQ/L (99-109); POTASSIUM 4.6 MEQ/L (3.7-5.4); SODIUM 137 MEQ/L (136-147); TOTAL BILIRUBIN 0.2 MG/DL (0.0-1.0)
[2017-08-27 08:24] LABS: ALKALINE PHOSPHATASE 102 IU/L (3-129); ALT (GPT) 12 IU/L (3-49); AST (GOT) 19 IU/L (2-34); CREATININE 0.7 MG/DL (0.6-1.3); GFR ESTIMATE (CALCULATED) > 59 mL/min/ (58.99-99999); GLUCOSE 363 mg/dL (70-99); TOTAL PROTEIN 6.5 G/DL (6.4-8.3); UREA NITROGEN (BUN) 8 mg/dL (9-23)
[2017-08-27 12:20] VITALS: BP 124/80
[2017-08-27 19:59] VITALS: BP 133/76
[2017-08-28 00:18] VITALS: BP 103/55
[2017-08-28 08:01] VITALS: BP 110/60
[2017-08-28 08:18] LABS: HEMATOCRIT 26.5 % (38.0-50.0); HEMOGLOBIN 8.1 G/DL (12.5-16.6); MCH 25.9 PG (29.0-34.0); MCHC 30.6 G/DL (30.0-36.0); MCV 84.7 FL (86-99); PLATELET COUNT 601 K/uL (156-360); RBC DIS.WIDTH-CV 14.5 % (11.8-14.6); RBC DIS.WIDTH-SD 44.2 % (39-53); RED BLOOD COUNT 3.13 M/uL (4.00-5.50)
[2017-08-28 08:46] LABS: ALBUMIN 2.7 G/DL (3.2-4.8); ALKALINE PHOSPHATASE 89 IU/L (3-129); ALT (GPT) 17 IU/L (3-49); AST (GOT) 27 IU/L (2-34); CHLORIDE 104 MEQ/L (99-109); CREATININE 0.6 MG/DL (0.6-1.3); GFR ESTIMATE (CALCULATED) > 59 mL/min/ (58.99-99999); POTASSIUM 4.1 MEQ/L (3.7-5.4); SODIUM 140 MEQ/L (136-147); TOTAL BILIRUBIN 0.2 MG/DL (0.0-1.0); TOTAL PROTEIN 6.7 G/DL (6.4-8.3); UREA NITROGEN (BUN) 11 mg/dL (9-23)
[2017-08-28 08:51] LABS: GLUCOSE 123 mg/dL (70-99)
[2017-08-28 11:47] VITALS: BP 129/64
[2017-08-28 16:00] VITALS: BP 115/71
[2017-08-29 05:24] LABS: HEMATOCRIT 25.2 % (38.0-50.0); HEMOGLOBIN 7.6 G/DL (12.5-16.6); MCH 25.8 PG (29.0-34.0); MCHC 30.2 G/DL (30.0-36.0); MCV 85.4 FL (86-99); PLATELET COUNT 587 K/uL (156-360); RBC DIS.WIDTH-CV 14.6 % (11.8-14.6); RBC DIS.WIDTH-SD 45.1 % (39-53); RED BLOOD COUNT 2.95 M/uL (4.00-5.50); WHITE BLOOD COUNT 9.7 K/uL (4.1-10.2)
[2017-08-29 07:51] LABS: ALBUMIN 2.8 G/DL (3.2-4.8); ALKALINE PHOSPHATASE 91 IU/L (3-129); ALT (GPT) 17 IU/L (3-49); AST (GOT) 25 IU/L (2-34); CHLORIDE 105 MEQ/L (99-109); CREATININE 0.6 MG/DL (0.6-1.3); FERRITIN 59 NG/ML (22-322); GFR ESTIMATE (CALCULATED) > 59 mL/min/ (58.99-99999); GLUCOSE 191 mg/dL (70-99); IRON 20 MCG/DL (35-150); POTASSIUM 4.2 MEQ/L (3.7-5.4); SODIUM 137 MEQ/L (136-147); TOTAL BILIRUBIN 0.2 MG/DL (0.0-1.0); TOTAL PROTEIN 6.4 G/DL (6.4-8.3); TRANSFERRIN (TIBC) 221.8 mg/dL (215-380); TRANSFERRIN SATUR. 9 % (20-55); UREA NITROGEN (BUN) 12 mg/dL (9-23)
[2017-08-29 08:04] VITALS: BP 119/76
[2017-08-29 11:17] VITALS: BP 121/75
[2017-08-29 15:55] VITALS: BP 132/75
[2017-08-29 19:39] VITALS: BP 120/80
[2017-08-29 23:57] VITALS: BP 130/72
[2017-08-30 06:11] LABS: HEMATOCRIT 22.7 % (38.0-50.0); HEMOGLOBIN 7.1 G/DL (12.5-16.6); MCH 26.9 PG (29.0-34.0); MCHC 31.3 G/DL (30.0-36.0); PLATELET COUNT 540 K/uL (156-360); RBC DIS.WIDTH-CV 14.6 % (11.8-14.6); RBC DIS.WIDTH-SD 45.1 % (39-53); RED BLOOD COUNT 2.64 M/uL (4.00-5.50); WHITE BLOOD COUNT 6.4 K/uL (4.1-10.2)
[2017-08-30 06:37] LABS: ALBUMIN 2.6 G/DL (3.2-4.8); ALKALINE PHOSPHATASE 83 IU/L (3-129); ALT (GPT) 18 IU/L (3-49); AST (GOT) 29 IU/L (2-34); CHLORIDE 105 MEQ/L (99-109); CREATININE 0.6 MG/DL (0.6-1.3); GFR ESTIMATE (CALCULATED) > 59 mL/min/ (58.99-99999); GLUCOSE 229 mg/dL (70-99); SODIUM 140 MEQ/L (136-147); TOTAL BILIRUBIN 0.2 MG/DL (0.0-1.0); TOTAL PROTEIN 6.1 G/DL (6.4-8.3); UREA NITROGEN (BUN) 8 mg/dL (9-23)
[2017-08-30 07:38] VITALS: BP 110/70
[2017-08-30 15:44] VITALS: BP 116/72
[2017-08-30 16:27] VITALS: BP 100/68
[2017-08-30 23:42] VITALS: BP 118/68
[2017-08-31 07:02] LABS: HEMATOCRIT 24.3 % (38.0-50.0); HEMOGLOBIN 7.5 G/DL (12.5-16.6); MCH 26.6 PG (29.0-34.0); MCHC 30.9 G/DL (30.0-36.0); MCV 86.2 FL (86-99); PLATELET COUNT 521 K/uL (156-360); RBC DIS.WIDTH-CV 14.8 % (11.8-14.6); RBC DIS.WIDTH-SD 45.6 % (39-53); RED BLOOD COUNT 2.82 M/uL (4.00-5.50); WHITE BLOOD COUNT 6.2 K/uL (4.1-10.2)
[2017-08-31 07:25] LABS: ALBUMIN 2.6 G/DL (3.2-4.8); ALKALINE PHOSPHATASE 93 IU/L (3-129); ALT (GPT) 22 IU/L (3-49); AST (GOT) 38 IU/L (2-34); CHLORIDE 105 MEQ/L (99-109); CREATININE 0.7 MG/DL (0.6-1.3); GFR ESTIMATE (CALCULATED) > 59 mL/min/ (58.99-99999); GLUCOSE 205 mg/dL (70-99); POTASSIUM 4.1 MEQ/L (3.7-5.4); SODIUM 141 MEQ/L (136-147); TOTAL BILIRUBIN 0.2 MG/DL (0.0-1.0); TOTAL PROTEIN 6.3 G/DL (6.4-8.3); UREA NITROGEN (BUN) 10 mg/dL (9-23)
[2017-08-31 08:35] VITALS: BP 138/74
[2017-08-31 16:49] VITALS: BP 117/60
[2017-08-31 23:14] VITALS: BP 107/65
[2017-09-01 06:13] LABS: HEMATOCRIT 27.1 % (38.0-50.0); HEMOGLOBIN 8.4 G/DL (12.5-16.6); MCH 26.7 PG (29.0-34.0); PLATELET COUNT 543 K/uL (156-360); RBC DIS.WIDTH-CV 14.9 % (11.8-14.6); RBC DIS.WIDTH-SD 45.6 % (39-53); RED BLOOD COUNT 3.15 M/uL (4.00-5.50); WHITE BLOOD COUNT 6.6 K/uL (4.1-10.2)
[2017-09-01 06:41] LABS: ALBUMIN 2.9 G/DL (3.2-4.8); ALKALINE PHOSPHATASE 97 IU/L (3-129); ALT (GPT) 20 IU/L (3-49); AST (GOT) 30 IU/L (2-34); CHLORIDE 104 MEQ/L (99-109); CREATININE 0.6 MG/DL (0.6-1.3); GFR ESTIMATE (CALCULATED) > 59 mL/min/ (58.99-99999); GLUCOSE 166 mg/dL (70-99); POTASSIUM 4.2 MEQ/L (3.7-5.4); SODIUM 138 MEQ/L (136-147); TOTAL BILIRUBIN 0.2 MG/DL (0.0-1.0); TOTAL PROTEIN 6.7 G/DL (6.4-8.3); UREA NITROGEN (BUN) 12 mg/dL (9-23)
[2017-09-01 08:24] VITALS: BP 110/68
[2017-09-01 17:05] VITALS: BP 120/78
[2017-09-01 23:49] VITALS: BP 102/59
[2017-09-02 07:01] LABS: HEMATOCRIT 26.5 % (38.0-50.0); HEMOGLOBIN 8.2 G/DL (12.5-16.6); MCH 26.7 PG (29.0-34.0); MCHC 30.9 G/DL (30.0-36.0); MCV 86.3 FL (86-99); PLATELET COUNT 526 K/uL (156-360); RBC DIS.WIDTH-CV 15.1 % (11.8-14.6); RBC DIS.WIDTH-SD 45.8 % (39-53); RED BLOOD COUNT 3.07 M/uL (4.00-5.50); WHITE BLOOD COUNT 7.4 K/uL (4.1-10.2)
[2017-09-02 07:29] LABS: ALKALINE PHOSPHATASE 94 IU/L (3-129); ALT (GPT) 25 IU/L (3-49); AST (GOT) 43 IU/L (2-34); CHLORIDE 104 MEQ/L (99-109); CREATININE 0.6 MG/DL (0.6-1.3); GFR ESTIMATE (CALCULATED) > 59 mL/min/ (58.99-99999); GLUCOSE 115 mg/dL (70-99); POTASSIUM 4.4 MEQ/L (3.7-5.4); SODIUM 139 MEQ/L (136-147); TOTAL BILIRUBIN 0.2 MG/DL (0.0-1.0); TOTAL PROTEIN 6.8 G/DL (6.4-8.3); UREA NITROGEN (BUN) 14 mg/dL (9-23)
[2017-09-02 08:09] VITALS: BP 119/58
[2017-09-02 16:09] VITALS: BP 128/64
[2017-09-02 23:42] VITALS: BP 110/56
[2017-09-03 06:44] LABS: HEMATOCRIT 29.7 % (38.0-50.0); HEMOGLOBIN 9.1 G/DL (12.5-16.6); MCH 26.1 PG (29.0-34.0); MCHC 30.6 G/DL (30.0-36.0); MCV 85.1 FL (86-99); PLATELET COUNT 568 K/uL (156-360); RBC DIS.WIDTH-CV 15.5 % (11.8-14.6); RBC DIS.WIDTH-SD 46.7 % (39-53); RED BLOOD COUNT 3.49 M/uL (4.00-5.50); WHITE BLOOD COUNT 7.8 K/uL (4.1-10.2)
[2017-09-03 07:07] LABS: ALBUMIN 3.2 G/DL (3.2-4.8); ALKALINE PHOSPHATASE 102 IU/L (3-129); ALT (GPT) 28 IU/L (3-49); AST (GOT) 39 IU/L (2-34); CHLORIDE 102 MEQ/L (99-109); CREATININE 0.7 MG/DL (0.6-1.3); GFR ESTIMATE (CALCULATED) > 59 mL/min/ (58.99-99999); GLUCOSE 150 mg/dL (70-99); POTASSIUM 4.6 MEQ/L (3.7-5.4); SODIUM 139 MEQ/L (136-147); TOTAL BILIRUBIN 0.2 MG/DL (0.0-1.0); TOTAL PROTEIN 7.3 G/DL (6.4-8.3); UREA NITROGEN (BUN) 18 mg/dL (9-23)
[2017-09-03 08:28] VITALS: BP 122/68
[2017-09-03 15:30] VITALS: BP 111/65
[2017-09-03 23:05] VITALS: BP 117/71
[2017-09-04 08:00] VITALS: BP 100/57
[2017-09-04 08:56] LABS: HEMOGLOBIN 8.4 G/DL (12.5-16.6); MCH 26.7 PG (29.0-34.0); MCHC 31.1 G/DL (30.0-36.0); MCV 85.7 FL (86-99); PLATELET COUNT 515 K/uL (156-360); RBC DIS.WIDTH-CV 15.6 % (11.8-14.6); RBC DIS.WIDTH-SD 47.5 % (39-53); RED BLOOD COUNT 3.15 M/uL (4.00-5.50); WHITE BLOOD COUNT 6.4 K/uL (4.1-10.2)
[2017-09-04 09:15] LABS: ALBUMIN 3.1 G/DL (3.2-4.8); ALKALINE PHOSPHATASE 88 IU/L (3-129); ALT (GPT) 25 IU/L (3-49); AST (GOT) 31 IU/L (2-34); CHLORIDE 104 MEQ/L (99-109); CREATININE 0.7 MG/DL (0.6-1.3); GFR ESTIMATE (CALCULATED) > 59 mL/min/ (58.99-99999); GLUCOSE 163 mg/dL (70-99); POTASSIUM 4.9 MEQ/L (3.7-5.4); SODIUM 141 MEQ/L (136-147); TOTAL BILIRUBIN 0.2 MG/DL (0.0-1.0); TOTAL PROTEIN 6.7 G/DL (6.4-8.3); UREA NITROGEN (BUN) 16 mg/dL (9-23)
[2017-09-04 23:25] VITALS: BP 111/60
[2017-09-05 08:26] VITALS: BP 102/60
[2017-09-05 15:25] VITALS: BP 120/80
[2017-09-05] MEDS ORDERED: FERROUS SULFAT325 MG PO (19:29)
[2017-09-05] MEDS ORDERED: QUETIAPINE FUMA25 MG PO (19:29)
[2017-09-05] MEDS ORDERED: OLANZAPINE5 MG PO (19:29)
[2017-09-05] MEDS ORDERED: DIAZEPAM5 MG PO (19:30)
[2017-09-05] MEDS ORDERED: LEVEMIR100 UNIT/2 SC ×2 (19:31)
[2017-09-05 23:55] VITALS: BP 132/80
[2017-09-06 08:34] VITALS: BP 138/72
[2017-09-06] MEDS ORDERED: KEFLEX500 MG PO (12:58)
[2017-09-06 15:55] VITALS: BP 111/69
== END 2017-09-06 16:22 | DRG 617 ==
LOC: EME 10:48 → EDOF 16:19 → 3EAST 16:19 → ENRESERV 16:21 → 3EAST 18:03 → ENRESERV 09-05 15:01 → CANRESERV 09-05 15:01 → 3EAST 09-06 16:22
PROVIDERS: Emergency Medicine; Hospitalist; Internal Medicine
DX: E10.69 Type 1 diabetes mellitus with other specified complication (principal); M86.9 Osteomyelitis, unspecified; L03.116 Cellulitis of left lower limb; L03.032 Cellulitis of left toe; L02.612 Cutaneous abscess of left foot; B95.1 Streptococcus, group B, as the cause of diseases classified elsewhere; E10.42 Type 1 diabetes mellitus with diabetic polyneuropathy; E10.621 Type 1 diabetes mellitus with foot ulcer; L97.521 Non-pressure chronic ulcer of other part of left foot limited to breakdown of skin; L97.421 Non-pressure chronic ulcer of left heel and midfoot limited to breakdown of skin; L89.610 Pressure ulcer of right heel, unstageable; E10.51 Type 1 diabetes mellitus with diabetic peripheral angiopathy without gangrene; E10.65 Type 1 diabetes mellitus with hyperglycemia; I25.10 Atherosclerotic heart disease of native coronary artery without angina pectoris; J45.909 Unspecified asthma, uncomplicated; I10 Essential (primary) hypertension; K21.9 Gastro-esophageal reflux disease without esophagitis; F31.9 Bipolar disorder, unspecified; F41.9 Anxiety disorder, unspecified; E78.5 Hyperlipidemia, unspecified; F01.50 Vascular dementia, unspecified severity, without behavioral disturbance, psychotic disturbance, mood disturbance, and anxiety; G93.1 Anoxic brain damage, not elsewhere classified; I11.0 Hypertensive heart disease with heart failure; I50.9 Heart failure, unspecified; D50.9 Iron deficiency anemia, unspecified; R41.89 Other symptoms and signs involving cognitive functions and awareness; G40.909 Epilepsy, unspecified, not intractable, without status epilepticus; Z66 Do not resuscitate; Z89.422 Acquired absence of other left toe(s); Z86.73 Personal history of transient ischemic attack (TIA), and cerebral infarction without residual deficits; Z95.5 Presence of coronary angioplasty implant and graft; Z79.82 Long term (current) use of aspirin; Z79.02 Long term (current) use of antithrombotics/antiplatelets; Z79.4 Long term (current) use of insulin; Z91.19 Patient's noncompliance with other medical treatment and regimen; Z86.14 Personal history of Methicillin resistant Staphylococcus aureus infection
CPT/HCPCS: 71046; 73630; 73720; 76937; 80048; 80053; 82728; 82948; 83036; 83540; 83605; 84466; 84484; 85025; 85027; 87040; 87070; 87075; 87076; 87077; 87186; 87205; 88305; 88311; 93005; 93926; 97530 GO; 97530 GP; 99281; 99285; A6260; J0456; J0696; J1335; J1644; J1815; J2250; J2405; J2543; J3010; J3370; J7030; J7050; S0020

== ENCOUNTER 2017-10-19 11:42 | Emergency (ER) | payer OTHER ==
[~2017-10-19] VITALS: Ht 175.3 cm; Wt 70.5 kg
[~2017-10-19 11:42] MED LIST changes: +FERROUS SULFAT325 MG PO; +LORAZEPAM0.5 MG PO; +OLANZAPINE5 MG PO; +QUETIAPINE FUMA25 MG PO; +SILVADENE20 GM TP; +STOOL SOFTENER100 M1 PO
[2017-10-19 13:09] LABS: HEMOGLOBIN 10.3 G/DL (12.5-16.6); MCH 25.6 PG (29.0-34.0); MCHC 31.2 G/DL (30.0-36.0); MCV 82.1 FL (86-99); RBC DIS.WIDTH-CV 16.3 % (11.8-14.6); RBC DIS.WIDTH-SD 48.3 % (39-53); RED BLOOD COUNT 4.02 M/uL (4.00-5.50); WHITE BLOOD COUNT 7.2 K/uL (4.1-10.2)
[2017-10-19 13:23] LABS: CHLORIDE 106 mEq/L (99-109); POTASSIUM 4.3 mEq/L (3.7-5.4); SODIUM 135 mEq/L (136-147)
[2017-10-19 13:25] LABS: GLUCOSE 278 mg/dL (70-99)
[2017-10-19 13:28] LABS: SERUM ETHYL ALCOHOL < 10 mg/dL
[2017-10-19 13:29] LABS: CREATININE 0.8 mg/dL (0.6-1.3); GFR ESTIMATE (CALCULATED) > 59 mL/min/ (58.99-99999)
[2017-10-19 13:30] LABS: UREA NITROGEN (BUN) 9 mg/dL (9-23)
[2017-10-19 13:56] LABS: BASOPHIL (%) 0.7 % (0-1); BASOPHIL COUNT 0.1 K/uL (0-0.1); EOSINOPHIL (%) 1.3 % (0-5); EOSINOPHIL COUNT 0.1 K/uL (0-0.3); IMMATURE GRANULOCYTE (%) 0.4 % (0.0-0.7); LYMPHOCYTE (%) 33.8 % (15-42); LYMPHOCYTE COUNT 2.4 K/uL (1.0-2.8); MONOCYTE (%) 4.7 % (3-12); MONOCYTE COUNT 0.3 K/uL (0-0.8); NEUTROPHIL (%) 59.1 % (45-76); NEUTROPHIL COUNT 4.2 K/uL (1.8-6.4); PLAT.SUFFICIENCY INCREASED; PLATELET COUNT 397 K/uL (156-360)
[2017-10-19 14:01] LABS: APPEARANCE CLEAR ((CLEAR)); BILIRUBIN NEGATIVE; BLOOD NEGATIVE; COLOR STRAW ((YELLOW)); GLUCOSE (STRIP) >=500; KETONES NEGATIVE; LEUKOCYTES NEGATIVE; NITRITE NEGATIVE; PROTEIN (STRIP) NEGATIVE; SPECIFIC GRAVITY 1.011 (1.000-1.030); UROBILINOGEN 0.2 MG/DL (0.2-1.0)
[2017-10-19 14:25] LABS: COCAINE NEGATIVE (150 ng/mL); METHAMPHETAMINE NEGATIVE (500 ng/mL); OPIATES (MORPHINE) NEGATIVE (100 ng/mL); PHENCYCLIDINE NEGATIVE (25 ng/mL); THC CANNABINOIDS NEGATIVE (50 ng/mL)
[2017-10-19 14:26] LABS: AMPHETAMINE NEGATIVE (500 ng/mL); BARBITURATES NEGATIVE (200 ng/mL); BENZODIAZEPINES PRESUMPTIVE POSITIVE (150 ng/mL); BUPRENORPHINE NEGATIVE (10 ng/mL); METHADONE NEGATIVE (200 ng/mL); OXYCODONE NEGATIVE (100 ng/mL); PROPOXYPHENE NEGATIVE (300 ng/mL); TRICYCLIC ANTIDEPRESSANTS NEGATIVE (300 ng/mL)
[2017-10-19 15:10] LABS: BENZODIAZEPINES, URINE SCREEN Negative (200 ng/mL)
[2017-10-19 15:30] VITALS: BP 129/82
== END 2017-10-19 15:30 | disposition home or self-care (01) ==
LOC: EME 11:42
PROVIDERS: Emergency Medicine
DX: F31.9 Bipolar disorder, unspecified (principal); Z04.6 Encounter for general psychiatric examination, requested by authority; E11.9 Type 2 diabetes mellitus without complications; I10 Essential (primary) hypertension; K21.9 Gastro-esophageal reflux disease without esophagitis; E78.5 Hyperlipidemia, unspecified; I25.10 Atherosclerotic heart disease of native coronary artery without angina pectoris; J45.909 Unspecified asthma, uncomplicated; F41.9 Anxiety disorder, unspecified; F32.9 Major depressive disorder, single episode, unspecified; Z79.4 Long term (current) use of insulin; Z91.19 Patient's noncompliance with other medical treatment and regimen; Z95.5 Presence of coronary angioplasty implant and graft; Z86.14 Personal history of Methicillin resistant Staphylococcus aureus infection; Z87.442 Personal history of urinary calculi; Z90.49 Acquired absence of other specified parts of digestive tract
CPT/HCPCS: 80048; 81003; 84999; 85025; 90837; 99281; 99285; G0480